=== PATIENT | male | born 1940 | race Two or more races ===

== ENCOUNTER 2016-11-18 15:10 | Emergency (ER) | payer MEDICARE, OTHER ==
[~2016-11-18] VITALS: Ht 177.8 cm; Wt 73.9 kg
[2016-11-18 15:25] VITALS: BP 146/81
--- NOTE | 2016-11-18 15:30 | PHYS DOC ---
Adult General Chief Complaint Chief Complaint: ELBOW PROBLEM HPI HPI Patient is a 75 year old male who presents with swelling. He states is her swelling yesterday. His relative tried to express out any fluid level with one of his insulin needles. He denies any fevers chills or pain elicited pushes on it. He states he can range it without any discomfort. He denies any nausea vomiting or fevers. States his last tetanus shot was within the last 5 years. He states he cut it approximately 5 days ago. Review of Systems Review of Systems Constitutional: Denies fever or chills [] Eyes: Denies change in visual acuity, redness, or eye pain [] HENT: Denies nasal congestion or sore throat [] Respiratory: Denies cough or shortness of breath [] Cardiovascular: No additional information not addressed in HPI [] GI: Denies abdominal pain, nausea, vomiting, bloody stools or diarrhea [] : Denies dysuria or hematuria [] Musculoskeletal: Denies back pain or joint pain [] Integument: Denies rash or skin lesions [] Neurologic: Denies headache, focal weakness or sensory changes [] Endocrine: Denies polyuria or polydipsia [] Current Medications Current Medications Current Medications Medications (Trade) Dose Ordered Sig/Val Start Time Stop Time Status Last Admin Dose Admin Lidocaine/Sodium Bicarbonate (Buffered Lidocaine 1%) 20 ml 1X ONCE 11/18/16 16:30 11/18/16 16:31 DC Allergies Allergies Allergies Coded Allergies Type Severity Reaction Last Updated Verified No Known Drug Allergies 11/18/16 No Physical Exam Physical Exam Constitutional: Well developed, well nourished, no acute distress, non-toxic appearance. [] HENT: Normocephalic, atraumatic, bilateral external ears normal, oropharynx moist, no oral exudates, nose normal. [] Eyes: PERRLA, EOMI, conjunctiva normal, no discharge. [] Neck: Normal range of motion, no tenderness, supple, no stridor. [] Cardiovascular:Heart rate regular rhythm, no murmur [] Lungs & Thorax: Bilateral breath sounds clear to auscultation [] Abdomen: Bowel sounds normal, soft, no tenderness, no masses, no pulsatile masses. [] Skin: Warm, dry, no erythema, no rash. [] Back: No tenderness, no CVA tenderness. [] Extremities: Mild tender palpation over the left elbow with obvious swelling at the elbow. No tenderness on range of motion, 3 mL erythematous with mild surrounding erythema, no cyanosis, no clubbing, ROM intact, no edema. Radial pulse 2+ in the left upper show any Neurologic: Alert and oriented X 3, normal motor function, normal sensory function, no focal deficits noted. [] Psychologic: Affect normal, judgement normal, mood normal. [] Current Patient Data Vital Signs Vital Signs Date Time Temp Pulse Resp B/P (MAP) Pulse Ox O2 Delivery O2 Flow Rate FiO2 11/18/16 15:25 98.3 95 18 146/81 (102) 95 Room Air 98.3 Lab Values Laboratory Tests Test 11/18/16 15:50 White Blood Count 7.8 x10^3/uL (4.0-11.0) Red Blood Count 3.96 x10^6/uL (4.30-5.70) L Hemoglobin 12.4 g/dL (13.0-17.5) L Hematocrit 36.3 % (39.0-53.0) L Mean Corpuscular Volume 92 fL (79-100) Mean Corpuscular Hemoglobin 31 pg (25-35) Mean Corpuscular Hemoglobin Concent 34 g/dL (31-37) Red Cell Distribution Width 13.0 % (11.5-14.5) Platelet Count 204 x10^3/uL (140-400) Neutrophils (%) (Auto) 70 % (31-73) Lymphocytes (%) (Auto) 19 % (24-48) L Monocytes (%) (Auto) 10 % (0-9) H Eosinophils (%) (Auto) 1 % (0-3) Basophils (%) (Auto) 0 % (0-3) Neutrophils # (Auto) 5.4 x10^3uL (1.8-7.7) Lymphocytes # (Auto) 1.5 x10^3/uL (1.0-4.8) Monocytes # (Auto) 0.8 x10^3/uL (0.0-1.1) Eosinophils # (Auto) 0.1 x10^3/uL (0.0-0.7) Basophils # (Auto) 0.0 x10^3/uL (0.0-0.2) Sodium Level 131 mmol/L (136-145) L Potassium Level 3.9 mmol/L (3.5-5.1) Chloride Level 95 mmol/L (98-107) L Carbon Dioxide Level 26 mmol/L (21-32) Anion Gap 10 (6-14) Blood Urea Nitrogen 24 mg/dL (8-26) Creatinine 0.9 mg/dL (0.7-1.3) Estimated GFR (Cockcroft-Gault) 81.8 BUN/Creatinine Ratio 27 (6-20) H Glucose Level 172 mg/dL (70-99) H Calcium Level 9.1 mg/dL (8.5-10.1) Total Bilirubin 0.5 mg/dL (0.2-1.0) Aspartate Amino Transferase (AST) 19 U/L (15-37) Alanine Aminotransferase (ALT) 29 U/L (16-63) Alkaline Phosphatase 61 U/L (46-116) C-Reactive Protein, Quantitative 11.4 mg/L (0-3.3) H Total Protein 6.9 g/dL (6.4-8.2) Albumin 3.4 g/dL (3.4-5.0) Albumin/Globulin Ratio 1.0 (1.0-1.7) Laboratory Tests 11/18/16 15:50 Laboratory Tests 11/18/16 15:50 EKG EKG [] Radiology/Procedures Radiology/Procedures [facility] [address] [place] [address] IMAGING REPORT Signed PATIENT: KRISTI ADHIKARI ACCOUNT: [id number] : 1940 LOCATION: ER AGE: 75 SEX: M EXAM STATUS: PRE ER ORD. PHYSICIAN: DANO FRYE MD REASON: swelling PROCEDURE: ELBOW LEFT 3V Indication injury 2 weeks ago. Pain and swelling. AP oblique and lateral views of left elbow were obtained. There is some soft tissue swelling. A bony abnormality is not seen. DICTATED and SIGNED BY: VANESA CONNOR MD DATE: 11/18/16 4701 CC: DANO FRYE MD; ENDER FU MD ~ Impressions: Left elbow swelling Course & Med Decision Making Course & Med Decision Making Pertinent Labs and Imaging studies reviewed. (See chart for details) 4 ML's of thin red material was expressed left elbow. I do not believe that this is infected. He does have some erythema overlying the elbow of which I will start Augmentin 875 twice a day for 7 days for. Patient's being discharged in stable condition to follow up with primary care physician. Wound cultures of the skin and cultures of the material expressed have been sent. Dragon Disclaimer Dragon Disclaimer This electronic medical record was generated, in whole or in part, using a voice recognition dictation system. Incision and Drainage Indication: Left elbow swelling Procedure: The patient was positioned appropriately. Sterile technique was used. Area was cleaned with Betadine scrub and alcohol swabs. Local anesthesia was 2 mL of buffered lidocaine was injected surrounding the left elbow. An 16- gauge needle was inserted was then made over the apex of the lesion and for ML' s of red within material was expressed. The patients tetanus status updated as needed. The patient tolerated the procedure well. Complications: none. Departure Departure Impression: Primary Impression: Bursitis Disposition: 01 HOME, SELF-CARE Condition: STABLE Referrals: ENDER FU MD (PCP) Patient Instructions: Cellulitis, [id number] Additional Instructions: You will need to be on antibiotics for the next 7 days. We sent cultures of the wound and the material we expressed out of your elbow. If you develop fevers, worsening pain or other concerns please return back to ER. You will need follow- up with your primary care physician in 3-5 days. Scripts Amoxicillin/Potassium Clav (AUGMENTIN 875-125 TABLET) 1 Each Tablet 1 TAB PO BID, #14 TAB Prov: DANO FRYE MD 11/18/16 Problem Qualifiers Primary Impression: Bursitis Bursitis location: elbow Elbow bursitis location: olecranon bursitis Laterality: left Qualified Codes: M70.22 - Olecranon bursitis, left elbow DANO FRYE MD Nov 18, 2016 15:30
[2016-11-18 16:06] LABS: BASO % 0 % (0-3); EOS % 1 % (0-3); HEMATOCRIT 36.3 % (39.0-53.0); HEMOGLOBIN 12.4 g/dL (13.0-17.5); LYMPH # 1.5 x10^3/uL (1.0-4.8); LYMPH % 19 % (24-48); MEAN CORPUSCULAR HEMOGLOBIN 31 pg (25-35); MEAN CORPUSCULAR HGB CONC 34 g/dL (31-37); MEAN CORPUSCULAR VOLUME 92 fL (79-100); MONO % 10 % (0-9); NEUT % 70 % (31-73); PLATELET COUNT 204 x10^3/uL (140-400); RED BLOOD COUNT 3.96 x10^6/uL (4.30-5.70); WHITE BLOOD COUNT 7.8 x10^3/uL (4.0-11.0)
--- NOTE | 2016-11-18 16:07 | RAD ---
Indication injury 2 weeks ago. Pain and swelling. AP oblique and lateral views of left elbow were obtained. There is some soft tissue swelling. A bony abnormality is not seen.
[2016-11-18 16:20] LABS: CALCIUM 9.1 mg/dL (8.5-10.1); CREATININE 0.9 mg/dL (0.7-1.3); GFR 81.8; POTASSIUM 3.9 mmol/L (3.5-5.1)
[2016-11-18 16:26] LABS: ALBUMIN 3.4 g/dL (3.4-5.0); TOTAL BILIRUBIN 0.5 mg/dL (0.2-1.0); TOTAL PROTEIN 6.9 g/dL (6.4-8.2)
[2016-11-18] MEDS ORDERED: LIDOCAINE 1% / SOD BICARB 8.4% 20 ML VIAL. IJ ONE (16:30)
[2016-11-18] MEDS ORDERED: AMOX1TAB61 PO (17:12)
== END 2016-11-18 17:30 | disposition home or self-care (01) ==
LOC: ER 15:10
DX: M70.22 Olecranon bursitis, left elbow (principal)
CPT/HCPCS: 36415; 73080; 80053; 85027; 85651; 86140; 87070; 87186; 87205; 99285-25

== ENCOUNTER 2016-12-26 10:33 | Inpatient (IN) | payer MEDICARE ==
[~2016-12-26] VITALS: Ht 177.8 cm; Wt 78.2 kg
[~2016-12-26 10:33] MED LIST: AMOX1TAB61 PO
--- NOTE | 2016-12-26 11:17 | EKG ---
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
[2016-12-26 11:27] LABS: BASO % 1 % (0-3); EOS % 1 % (0-3); HEMATOCRIT 38.7 % (39.0-53.0); HEMOGLOBIN 13.7 g/dL (13.0-17.5); LYMPH # 1.1 x10^3/uL (1.0-4.8); LYMPH % 14 % (24-48); MEAN CORPUSCULAR HEMOGLOBIN 32 pg (25-35); MEAN CORPUSCULAR HGB CONC 35 g/dL (31-37); MEAN CORPUSCULAR VOLUME 90 fL (79-100); MONO % 8 % (0-9); NEUT % 76 % (31-73); PLATELET COUNT 216 x10^3/uL (140-400); RED BLOOD COUNT 4.28 x10^6/uL (4.30-5.70)
[2016-12-26] MEDS ORDERED: IV NORMAL SALINE 1000ML BAG 1,000 ML IV SCH (11:30)
[2016-12-26] MEDS ORDERED: ASPIRIN CHEWABLE 81 MG TABLET. PO ONE (11:30)
[2016-12-26 11:35] LABS: CALCIUM 9.4 mg/dL (8.5-10.1); CREATININE 0.9 mg/dL (0.7-1.3); GFR 81.6; POTASSIUM 4.1 mmol/L (3.5-5.1)
[2016-12-26 11:41] LABS: ALBUMIN 3.7 g/dL (3.4-5.0); ALBUMIN/GLOBULIN RATIO 1.1 (1.0-1.7); TOTAL BILIRUBIN 0.5 mg/dL (0.2-1.0); TOTAL PROTEIN 7.1 g/dL (6.4-8.2)
--- NOTE | 2016-12-26 12:03 | RAD ---
Exam performed: One view chest. Indication: medical workup Date of Service: 12/26/2016 1:13 PM Comparison: 03/14/05. Single AP upright portable view chest findings: Cardiomediastinal silhouette is within limits of normal. No acute infiltrates, effusion or pneumothorax is detected. The bony structures are normal. Impression: No acute cardiopulmonary process is detected.
[2016-12-26] MEDS ORDERED: HEPARIN for IV BOLUS 10,000 UNIT/10 ML VIAL. IV ONE (13:30)
--- NOTE | 2016-12-26 13:46 | PDOC2 ---
CARDIAC CONSULT DATE OF CONSULT Date of Consult DATE: 12/26/16 TIME: 13:44 REASON FOR CONSULT Reason for Consult: Chest Pain Elevated troponin REFERRING PHYSICIAN Referring Physician: Dr. Sanders SOURCE Source: Chart review, Patient HISTORY OF PRESENT ILLNESS HISTORY OF PRESENT ILLNESS This is a 76 yo male who presented with complaints of chest pressure. Patient reports pain began this morning while driving. Located in his left chest. Radiated across his chest and up to his throat. Describes as stabbing in nature. Associated with diaphoresis and SOA. No dizziness, palpitations, or nausea/vomiting. No exacerbating factors. Relieved in ED with ASA. No previous h /o of CAD. Presently CP free. PAST MEDICAL HISTORY Cardiovascular: HTN, Hyperlipidemia Pulmonary: No pertinent hx GI: GERD Heme/Onc: No pertinent hx Hepatobiliary: No pertinent hx Psych: No pertinent hx Musculoskeletal: Osteoarthritis Rheumatologic: No pertinent hx Infectious disease: No pertinent hx ENT: No pertinent hx Renal/: Benign prostatic enlarg. Endocrine: Diabetes Dermatology: No pertinent hx PAST SURGICAL HISTORY Past Surgical History: Hernia Repair FAMILY HISTORY Family History: Diabetes, Hypertension SOCIAL HISTORY Smoke: No ALCOHOL: none Drugs: None Lives: with Family CURRENT MEDICATIONS CURRENT MEDICATIONS Current Medications Medications (Trade) Dose Ordered Sig/Val Route PRN Reason Start Time Stop Time Status Last Admin Dose Admin Sodium Chloride 1,000 ml @ 100 mls/hr Q10H IV 12/26/16 11:30 12/26/16 21:29 12/26/16 11:46 Aspirin (Children'S Aspirin) 324 mg 1X ONCE PO 12/26/16 11:30 12/26/16 11:31 DC 12/26/16 11:46 ALLERGIES ALLERGIES: Coded Allergies: No Known Drug Allergies (Unverified , 11/18/16) ROS Review of System 14 point ROS conducted with pertinent positives noted above in HPI. PHYSICAL EXAM General: Alert, Oriented X3, Cooperative, No acute distress HEENT: Atraumatic, Mucous membr. moist/pink Lungs: Clear to auscultation, Normal air movement Heart: Regular rate, Normal S1, Normal S2, Other (2/6 systolic murmur ) Abdomen: Soft, No tenderness Extremities: No edema, Normal pulses Skin: No breakdown, No significant lesion Neuro: Normal speech, Sensation intact Psych/Mental Status: Mental status NL, Mood NL MUSCULOSKELETAL: Osteoarthritic changes both hands VITALS VITALS Vital Signs Date Time Temp Pulse Resp B/P (MAP) Pulse Ox O2 Delivery O2 Flow Rate FiO2 12/26/16 10:48 97.5 71 16 185/88 (120) 98 Room Air 97.5 LABS Lab: Laboratory Tests Test 12/26/16 10:55 White Blood Count 8.0 x10^3/uL (4.0-11.0) Red Blood Count 4.28 x10^6/uL (4.30-5.70) Hemoglobin 13.7 g/dL (13.0-17.5) Hematocrit 38.7 % (39.0-53.0) Mean Corpuscular Volume 90 fL (79-100) Mean Corpuscular Hemoglobin 32 pg (25-35) Mean Corpuscular Hemoglobin Concent 35 g/dL (31-37) Red Cell Distribution Width 13.0 % (11.5-14.5) Platelet Count 216 x10^3/uL (140-400) Neutrophils (%) (Auto) 76 % (31-73) Lymphocytes (%) (Auto) 14 % (24-48) Monocytes (%) (Auto) 8 % (0-9) Eosinophils (%) (Auto) 1 % (0-3) Basophils (%) (Auto) 1 % (0-3) Neutrophils # (Auto) 6.1 x10^3uL (1.8-7.7) Lymphocytes # (Auto) 1.1 x10^3/uL (1.0-4.8) Monocytes # (Auto) 0.7 x10^3/uL (0.0-1.1) Eosinophils # (Auto) 0.1 x10^3/uL (0.0-0.7) Basophils # (Auto) 0.0 x10^3/uL (0.0-0.2) Sodium Level 129 mmol/L (136-145) Potassium Level 4.1 mmol/L (3.5-5.1) Chloride Level 93 mmol/L (98-107) Carbon Dioxide Level 27 mmol/L (21-32) Anion Gap 9 (6-14) Blood Urea Nitrogen 16 mg/dL (8-26) Creatinine 0.9 mg/dL (0.7-1.3) Estimated GFR (Cockcroft-Gault) 81.6 BUN/Creatinine Ratio 18 (6-20) Glucose Level 213 mg/dL (70-99) Calcium Level 9.4 mg/dL (8.5-10.1) Total Bilirubin 0.5 mg/dL (0.2-1.0) Aspartate Amino Transf (AST/SGOT) 23 U/L (15-37) Alanine Aminotransferase (ALT/SGPT) 42 U/L (16-63) Alkaline Phosphatase 58 U/L (46-116) Troponin I Quantitative 0.205 ng/mL (0.000-0.055) Total Protein 7.1 g/dL (6.4-8.2) Albumin 3.7 g/dL (3.4-5.0) Albumin/Globulin Ratio 1.1 (1.0-1.7) HEART CATH HEART CATH 1. Chest pain, with typical features 2. NSTEMI; initial trop 0.205. 3. Accelerated hypertension; resume home antiHTN therapy 4. Hyperlipidemia; resume statin 5. Systolic murmur; echo to further assess 6. Diabetes; per PCP Recommendations 1. Hold metformin 2. Trend trop. Check lipids 3. ASA, start heparin as per CV protocol 4. Echo to assess LV function/presence of WMA 5. NPO p MN. Given symptomatology, risk factors, and EKG changes, in the setting of NSTEMI, recommend cardiac cath in am. D/w patient and family and are agreeable. Will d/w primary sales manager prearranged funerals. 6. Monitor BP to assess need for therapy titration. Hydralazine IV PRN. MILAGROS WARNER APRN Dec 26, 2016 13:46
[2016-12-26] MEDS: HEPARIN 25,000UTS/500ML PREMIX 500 ML IV PRN (14:04)
[2016-12-26 15:00] VITALS: BP 174/86
[2016-12-26] MEDS ORDERED: hydrALAZINE 20 MG/ML VIAL. IVP PRN (15:30)
[2016-12-26 15:52] VITALS: BP 174/86
--- NOTE | 2016-12-26 17:21 | CARD ---
APPROVED REPORT EXAM: Two-dimensional and M-mode echocardiogram with Doppler and color Doppler. Other Information Quality : GoodHR: 74bpm Rhythm : NSR INDICATION Elevated troponin RISK FACTORS Diabetes 2D DIMENSIONS RVDd3.4 (2.9-3.5cm)Left Atrium(2D)4.4 (1.6-4.0cm) IVSd1.3 (0.7-1.1cm)Aortic Root(2D)2.9 (2.0-3.7cm) LVDd4.6 (3.9-5.9cm)LVOT Diameter2.1 (1.8-2.4cm) PWd1.5 (0.7-1.1cm)LVDs2.9 (2.5-4.0cm) FS (%) 37.4 %SV66.0 ml LVEF(%)67.5 (>50%) Aortic Valve AoV Peak Juan.106.9cm/sAoV VTI21.4cm AO Peak GR.4.6mmHgLVOT Peak Juan.93.7cm/s AO Mean GR.2mmHgAVA (VMAX)2.96cm2 Mitral Valve MV E Nazwyaqg36.1cm/sMV E Peak Gr.4mmHg MV DECEL [id number] A Prajumlh70.0cm/s MV E Mean Gr.1mmHgE/A Ratio1.0 MV A [id number] Pulmonary Valve PV Peak Jznukugx016.6cm/s Pulmonary Vein S1 Uknypiyb96.6cm/sD2 Xyulxzxq17.7cm/s PVa [id number] LEFT VENTRICLE The left ventricle is normal size. There is mild concentric left ventricular hypertrophy. The left ve ntricular systolic function is normal and the ejection fraction is within normal range. The Ejection Fraction is 60-65%. There is normal LV segmental wall motion. The left ventricular diastolic function and filling is normal for age. No left ventricle thrombus noted on this study. RIGHT VENTRICLE The right ventricle is normal size. There is normal right ventricular wall thickness. The right ventr icular systolic function is normal. ATRIA The left atrium is mildly dilated. The right atrium size is normal. The interatrial septum is intact with no evidence for an atrial septal defect or patent foramen ovale as noted on 2-D or Doppler imagi ng. AORTIC VALVE The aortic valve is mildly sclerotic.sclerotic. The aortic valve is trileaflet. Doppler and Color Sebastian w revealed no significant aortic regurgitation. There is no significant aortic valvular stenosis. MITRAL VALVE Mitral annular calcification is mild. The mitral valve leaflets are thickened. There is no evidence o f mitral valve prolapse. There is no mitral valve stenosis. Doppler and Color Flow revealed trace neeru ral regurgitation. TRICUSPID VALVE Doppler and Color Flow revealed no tricuspid valve regurgitation noted. Unable to determine pulmonary artery pressure at exam time. PULMONIC VALVE The pulmonic valve is not well visualized but appears to open adequately. Doppler and Color Flow reve aled mild pulmonic valvular regurgitation. There is no pulmonic valvular stenosis by spectral Doppler . GREAT VESSELS The aortic root is normal in size. The ascending aorta is normal in size. The pulmonary artery is nor mal. The IVC is normal in size and collapses >50% with inspiration. PERICARDIAL EFFUSION There is no evidence of significant pericardial effusion. Critical Notification Critical Value: No <Conclusion> The left ventricle is normal size. The left ventricular systolic function is normal and the ejection fraction is within normal range. The Ejection Fraction is 60-65%. There is mild concentric left ventricular hypertrophy. There is no significant aortic valvular stenosis. Doppler and Color Flow revealed no significant aortic regurgitation. Doppler and Color Flow revealed trace mitral regurgitation. Doppler and Color Flow revealed no tricuspid valve regurgitation.
[2016-12-26] MEDS ORDERED: OMEP20CA9 PO (17:48)
[2016-12-26] MEDS ORDERED: VERA180C4 PO (17:48)
[2016-12-26] MEDS ORDERED: DUTA0.5C PO (17:48)
[2016-12-26] MEDS ORDERED: MULT1TAB52 PO (17:48)
[2016-12-26] MEDS ORDERED: PRAV20TA2 PO (17:48)
[2016-12-26] MEDS ORDERED: METF-620 PO (17:48)
[2016-12-26] MEDS ORDERED: VALS1TAB22 PO (17:48)
[2016-12-26] MEDS ORDERED: MELO15TA23 PO (17:48)
[2016-12-26] MEDS ORDERED: HYDR50TA6 PO (17:48)
[2016-12-26] MEDS ORDERED: ASPI-482 PO (17:48)
[2016-12-26] MEDS ORDERED: SAW450CA2 PO (17:48)
[2016-12-26] MEDS ORDERED: TAMS0.4C2 PO (17:48)
[2016-12-26] MEDS ORDERED: GLIP10TA13 PO (17:48)
--- NOTE | 2016-12-26 18:44 | HP ---
ADMIT DATE: 12/26/2016 CHIEF COMPLAINT: Chest pain. HISTORY OF PRESENT ILLNESS: The patient is a pleasant middle-aged male who presents with chest pain. It is radiating to his arms. His troponin is a little bit high at 0.2. His EKG has some subtle ST changes. I have discussed the case with the ER physician. We are going to admit the patient and consult Cardiology. PAST MEDICAL HISTORY: Reviewed in the computerized system. Please refer to the computerized H and P. ALLERGIES: None. FAMILY HISTORY: Coronary disease. SOCIAL HISTORY: He does not drink, smoke or take drugs. . MEDICATIONS: Reviewed. REVIEW OF SYSTEMS: GENERAL: No history of weight change, weakness or fevers. SKIN: No bruising, hair changes or rashes. EYES: No blurred, double or loss of vision. NOSE AND THROAT: No history of nosebleeds, hoarseness or sore throat. HEART: He complains of chest pain. LUNGS: Denies cough, hemoptysis, wheezing or shortness of breath. GASTROINTESTINAL: Denies changes in appetite, nausea, vomiting, diarrhea or constipation. GENITOURINARY: No history of frequency, urgency, hesitancy or nocturia. NEUROLOGIC: Denies history of numbness, tingling, tremor or weakness. PSYCHIATRIC: No history of panic, anxiety or depression. ENDOCRINE: No history of heat or cold intolerance, polyuria or polydipsia. EXTREMITIES: Denies muscle weakness, joint pain, pain on walking or stiffness. PHYSICAL EXAMINATION: VITAL SIGNS: Temperature afebrile, pulse 74, respirations 18, blood pressure 127/91. GENERAL: He is alert. His is present. She is helping to translate. HEART: Distant S1 and S2. LUNGS: Clear. ABDOMEN: Soft, positive bowel sounds, a little obese. EXTREMITIES: 1+ edema. SKIN: No rashes. PSYCHIATRIC: He seems anxious. VASCULAR: Good capillary refill. ENDOCRINE: No thyromegaly. LYMPHATICS: No cervical nodes. HEMATOPOIETIC: No bruising. ASSESSMENT AND PLAN: Chest pain, rule out coronary disease. We will admit the patient to the cardiac floor. Serial enzymes, serial EKGs. Consult Cardiology. Daily aspirin. Continue home medicines. PROGNOSIS: Guarded. TIAN MONTERO DO DR: TOREY/elsie JOB#: [id number] / [id number]
[2016-12-26 19:33] VITALS: BP 162/78
[2016-12-26] MEDS: DUTASTERIDE 0.5 MG CAPSULE PO SCH (20:57)
[2016-12-26] MEDS: ATORVASTATIN CALCIUM 10 MG TABLET. PO SCH (20:57)
[2016-12-26] MEDS: VERAPAMIL SR 180 MG TABLET.ER. PO SCH (20:57)
[2016-12-26] MEDS ORDERED: NON FORMULARY ITEM (Saw Palmetto Fruit (Saw Palmetto) 450 MG) PO SCH (21:00)
[2016-12-26] MEDS: MULTIVITAMIN with MINERAL TABLET. PO SCH (21:00)
[2016-12-26] MEDS: TAMSULOSIN 0.4 MG CAP.ER.24H. PO SCH (21:00)
[2016-12-26 23:05] VITALS: BP 173/87
[2016-12-27] VITALS (14 sets, daily range): BP systolic 120–142; BP diastolic 60–77
--- NOTE | 2016-12-27 02:23 | ACF ---
Admission Forms Criteria CARDIOLOGY GRG Clinical Indications for Admission to Inpatient Care ( [place]/check or initial the applicable condition/criteria) Hospital admission is needed for appropriate care of the patient because of ANY ONE of the following: [ ] I. Hemodynamic instability as indicated by ALL of the following (1)(2)(3) (4)(5)(6)(7)(8)(9)(10) [ ]a) Vital sign abnormality not readily corrected by appropriate treatment with 12-24 hours for ANY ONE: [ ]i) Hypotension that persists despite appropriate treatment (eg, volume repletion) [ ]ii) Tachycardiathat persists despite appropriate tx ( e.g., analgesia, fluids, sedation as indicated [ ]iii) Orthostatic vital sign changes that persists despite appropriate treatment (eg, volume repletion) [ ]b) Vital sign abnormailty that is severe indicated by ANY ONE of the following: [ ]i) Inadequate perfusion indicated by ANY ONE of the following: [ ] 1) Lactic acidosis (> 2 mmol/L) [ ] 2) New abnormal capillary refill (> 3 seconds) [ ] 3) Reduced urine output [ ] 4) New altered mental status [ ] 5) Myocardial Ischemia [ ] 6) Other metabolic acidosis (arterial pH <7.35 ) not otherwise explained. [ ]ii) Mean arterial pressure[A] less than 60 mm Hg [ ]iii) Mean arterial pressure[A] less than 70 mm Hg after 30 minutes of appropriate treatment (eg, fluid resuscitation) [ ]iv) Sustained heart rate greater than 120 beats per minute in adult or child 6 years or older[B] [ ]v) IV inotropic or vasopressor medication required to maintain adequate blood pressure or perfusion [ ] II. Severe heart failure as indicated by ANY ONE of the following(17)(18) [ ]a) Respiratory distress [ ]b) Hypotension [ ]c) Debilitating anasarca refractory to therapy (eg, tissue breakdown with infection)[C](19) [ ]d) Cardiac arrhythmias of immediate concern [ ]e) Myocardial ischemia [ ] III. Cardiac arrhythmias or findings of immediate concern indicated by ANY ONE of the following (21)(22): [ ] a) Heart rhythms that are inherently dangerous or unstable indicated by ANY ONE of the following (23)(24)(25): [ ] i) Resuscitated ventricular fibrillation or cardiac arrest [ ] ii) Ventricular escape rhythm [ ] iii) Sustained ventricular tachycardia (30 seconds or more of ventricular rhythm at greater than 100 beats per minute) [ ] iv) Nonsustained ventricular tachycardia and ANY ONE of the following: [ ] 1) Suspected cardiac ischemia as cause or consequence of ventricular tachycardia [ ] 2) Acute myocarditis [ ] b) Unstable cardiac conduction defects indicated by ANY ONE of the following(25)(26)(27) [ ] i) Type II second-degree atrioventricular block [ ]ii) Third-degree atrioventricular block [ ]iii) New-onset left bundle branch block with suspected myocardial ischemia [ ]c) Any heart rhythm and ANY ONE of the following (23)(24)(28)(29) (30) [ ] i) Continuous long-term ECG monitoring needed (e.g., initiation of drug requiring monitoring for more than 24 hours) [ ] ii) Patient has automatic implanted cardioverter defibrillator that is repeatedly firing, malfunctioning, or in need of immediate adjustment of settings beyond the scope of ambulatory or observation care [ ]d) Heart rhythms of concern due to ANY ONE of the following: [ ] i) Hypotension [ ] ii) Respiratory distress [ ] iii) Association with other significant symptoms (e.g., bradycardia with syncope or ongoing dizziness, supraventricular tachycardia with chest pain (28)(29)(31) [ ] IV. Monitoring for cardiac contusion beyond the scope of observation care needed [A](32)(33)(34) [ ] V. Surgical or device complication (e.g., valve replacement complication , ICD disfunction or pacemaker dysfunction) (49)(50)(51)(52)(53)(54) [ ] . Inpatient palliative care needed. [F](51)(52) Also use Inpatient Palliative Care Criteria [ ] VII. Nonbacterial thrombotic (marantic) endocarditis(43)(44)(55)(56)(57) [X] VIII. Cardiology condition, symptom, or finding for which emergency and observation care has failed or are not considered appropriate. [ ] IX. Acute valvular disease requiring inpatient as indicated by ANY ONE of the following (40)(41) [ ]a) Acute valvular regurgitation (42) [ ]b) Noninfectious valvulitis (43)(44) [ ]c) Obstructive valve thrombosis (45)(46) [ ]d) Paravalvular leak(47)(48) [ ]e) Other significant valvular disorder remaining after emergency or observation level of care (as appropriate) [ ]X. Pericardial disease requiring inpatient treatment as indicated by ANY ONE of the following (35)(36)(37)(38) [ ]a) Suspected tamponade [ ]b) Hemopericardium [ ]c) Other significant pericardial disorder remaining after emergency or observation level of care (as appropriate)(39) [ ] XI. Cardiac ischemia beyond scope of emergency and observation care. [ ] XII. Cyanotic heart disease requiring inpatient care as indicated by 1 or more of the following(58)(59)(60): [ ]a) Acute onset of hypoxemia [ ]b) Exacerbation [ ] XIII. Hypertension requiring inpatient treatment as indicated by ANYONE of the following(11)(12)(13)(14): [ ]a) Severe hypertension (SBP greater than 180 mm Hg or DBP greater than 110 mm Hg, or greater than the 95th percentile for age, gender, and height in pediatric patients) that cannot be controlled (eg, to SBP less than 160 mm Hg and DBP less than 100 mm Hg) by emergency department or observation care treatment(15) [ ]b) Acute end organ damage secondary to hypertension (SBP greater than 140 mm Hg or DBP greater than 90 mm Hg) as indicated by ANYONE of the following: [ ] i) Hypertensive encephalopathy (eg, Altered mental status)(16) [ ] ii) Cerebral infarction [ ] iii) Intracranial hemorrhage [ ] iv) Myocardial ischemia or infarction [ ] v) Heart failure (eg, pulmonary edema) [ ] vi) Aortic dissection [ ] vii) Increased creatinine (new) with reduction of more than 50% in estimated glomerular filtration rate from baseline [ ] viii) Papilledema [ ] ix) Retinal hemorrhage [ ] x) Microangiopathic hemolytic anemia [ ] xi) Seizure [ ] xii) Other significant finding secondary to hypertension [ ] XIV. Complications of transplanted heart indicated by ANY ONE of the following(61): [ ]a) Acute graft rejection requiring inpatient management (eg, intravenous imunosuppression)(62)(63) [ ]b) Acute graft heart failure indicated by ANY ONE of the following(64): [ ] i) Hemodynamic instability [ ] ii) Cardiac arrhythmias of immediate concern [ ] iii) Pulmonary edema that is very severe (eg, mechanical ventilation needed, imminent or likely, need for 100% oxygen to keep oxygen saturation above 90%) [ ] iv) Pulmonary edema that is persistent as indicated by ALL of the following: [ ] 1) New need for oxygen therapy to keep oxygen saturation above 90 % (or increased FiO2 need from baseline) [ ] 2) Has not improved sufficiently with emergency department or observation care IV diuretics or other heart failure treatments[E]. [ ] iv) Altered mental status that is severe or persistent [ ] iv) Increased creatinine (new on laboratory test) with reduction of more than 50% in estimated glomerular filtration rate from baseline [ ] iv) Progressively (ongoing) rising creatinine (known from past laboratory test) with reduction of more than 25% in estimated glomerular filtration rate from baseline [ ] iv) Acute renal failure [ ] iv) Acute peripheral ischemia (eg, examination shows pulseless, cool, mottled, or cyanotic extremity) [ ] iv) Pulmonary artery catheter monitoring needed [ ] iv) Other sign or symptom of heart failure requiring inpatient treatment (ie, too severe or not responsive to outpatient and observation care treatment) [ ]c) Infection requiring inpatient management (eg, Hemodynamic instability, need for intravenous antimicrobial treatment)(66)(67)(68)(69)(70) [ ]d) Cardiac allograft vasculopathy requiring inpatient management (eg evidence of cardiacischemia)(71) [ ]e) Other complication of transplanted heart (eg, stroke, severe pulmonary hypertension, severe valvular dysfunction) requiring inpatient management(72) The original [facility] content created by [facility] has been revised. The portions of the content which have been revised are identified through the use of italic text, and [facility] has neither reviewed nor approved the modified material. All other unmodified content is copyright [email or web address]. Please see references footnoted in the original [facility] edition 2014 Admission Criteria Met?: Yes JORGE AMEZCUA Dec 27, 2016 02:23
[2016-12-27 02:50] LABS: CHOLESTEROL/HDL RATIO 2.3
[2016-12-27] MEDS: glipiZIDE 5 MG TABLET PO SCH ×2 (07:30→16:30)
[2016-12-27] MEDS ORDERED: hydroCHLOROthiazide 25 MG TABLET PO SCH (09:00)
[2016-12-27] MEDS ORDERED: LOSARTAN POTASSIUM 50 MG TABLET. PO SCH (09:00)
[2016-12-27] MEDS ORDERED: MELOXICAM 7.5 MG TABLET PO SCH (09:00)
[2016-12-27] MEDS: PANTOPRAZOLE 40 MG TABLET.DR. PO SCH (09:53)
[2016-12-27] MEDS: ASPIRIN ENTERIC COATED 81 MG TABLET.DR. PO SCH (09:53)
[2016-12-27] MEDS: hydroCHLOROthiazide 25 MG TABLET PO SCH (09:54)
[2016-12-27] MEDS ORDERED: IOHEXOL 300 MG/ML 100ML VIAL. ONE (11:07)
[2016-12-27] MEDS ORDERED: LIDOCAINE 2% 20 ML VIAL. ONE (11:07)
[2016-12-27] MEDS ORDERED: VERAPAMIL 5 MG/2 ML VIAL. ONE (11:28)
[2016-12-27] MEDS ORDERED: fentaNYL PF VIAL 100 MCG/2 ML VIAL ONE (11:28)
[2016-12-27] MEDS ORDERED: HEPARIN for IV BOLUS 10,000 UNIT/10 ML VIAL. ONE (11:28)
[2016-12-27] MEDS ORDERED: MIDAZOLAM HCL/PF 2 MG/2 ML VIAL. ONE (11:28)
[2016-12-27] MEDS ORDERED: NITROGLYCERIN 200 MCG/2 ML SYRINGE FOR CATH/VASC LAB. ONE (11:30)
--- NOTE | 2016-12-27 11:32 | PDOC ---
MODERATE SEDATION ASSESSMENT RISKS/ALTERNATIVES Risks/Alternatives Risks and alternatives of this type of sedation and procedure discussed with: RISK/ALTERNATIVES: Patient H & P ON CHART H & P H & P on chart and reviewed for co-morbid conditions and appropriate labs. H&P ON CHART: Yes STATUS PREG STATUS ASSESSED: N/A MEDS/ALLERGIES REVIEWED Meds/Allergies Reviewed Medications and Allergies including time and route of recently administered narcotics and sedatives. MEDS/ALLERGIES REVIEWED: Yes ASA RATING ASA RATING: III AIRWAY ASSESSMENT Airway Assessment Airway patency, oral function limitations, presence of caps, crowns, dentures, partials, and ability to extend neck assessed. AIRWAY ASSESSMENT: Yes MALLAMPATI SCORE MALLAMPATI SCORE: II PRE-SEDATION ASSESSMENT PRE-SEDATION ASSESSMENT: Yes GHADA MATA MD Dec 27, 2016 11:32
[2016-12-27] MEDS ORDERED: fentaNYL PF VIAL 100 MCG/2 ML VIAL IV ONE (12:00)
[2016-12-27] MEDS ORDERED: IOHEXOL 300 MG/ML 100ML VIAL. IART ONE (12:00)
[2016-12-27] MEDS ORDERED: NITROGLYCERIN 200 MCG/2 ML SYRINGE FOR CATH/VASC LAB. IART ONE (12:00)
[2016-12-27] MEDS ORDERED: HEPARIN for IV BOLUS 10,000 UNIT/10 ML VIAL. IART ONE (12:00)
[2016-12-27] MEDS ORDERED: LIDOCAINE 2% 20 ML VIAL. IJ ONE (12:00)
[2016-12-27] MEDS ORDERED: VERAPAMIL 5 MG/2 ML VIAL. IART ONE (12:00)
[2016-12-27] MEDS ORDERED: HEPARIN for IV BOLUS 10,000 UNIT/10 ML VIAL. IV ONE (12:00)
[2016-12-27] MEDS ORDERED: MIDAZOLAM HCL/PF 2 MG/2 ML VIAL. IV ONE (12:00)
[2016-12-27] MEDS ORDERED: CONTRAST GIVEN MC PRN (12:15)
--- NOTE | 2016-12-27 14:59 | CARD ---
APPROVED REPORT Procedure(s) performed: MODERATE SEDATION: 54 MINUTES Coronary angiography HISTORY The patient is a 76 year-old male with a history of : diabetes mellitus with treatment, hypertension, dyslipidemia. INDICATION The indication(s) include : non-STEMI Trop 12. PROCEDURE NARRATIVE The patient was brought electively to the cardiac catheterization lab. A timeout was performed confi rming the patient's name, date of , procedure, and site of procedure. All necessary personnel w ere wearing the appropriate protective equipment and radiation monitor devices. After explaining the risks and benefits of the procedure and alternatives, informed consent was obtained. (See nursing no tracee for medications administered). The right wrist was sterilely prepped and draped in the usual fas hion. The right wrist was infiltrated with 1 mL of 2% lidocaine for subcutaneous anesthesia. A 6 Fr ench Terumo glide sheath was inserted into the right radial artery without difficulty. Right and lef t coronary angiography was performed using a 6Fr JL 3.5 and JR4 catheters. CORONARY ANGIOGRAPHY: LM is a large caliber vessel with normal angiographic appearance. LAD is a moderate caliber vessel with a long mid 90% stenosis. Ramus is a small caliber vessel with proximal 50% stenosis. LCx is a moderate caliber non-dominant vessel with a mild luminal irregularities. OM1 is a moderate caliber vessel with ostial 90% stenosis and a proximal 70% stenosis. RCA is a large caliber dominant vessel with a proximal eccentric 60% stenosis. RPDA and RPL are moderate caliber vessels with normal angiographic appearance. INTERVENTIONAL TECHNIQUE: iFR of the RCA Based upon the intermediate stenosis in the proximal RCA, a functional evaluation was performed. Hepa rin weight based bolus dosing was used to achieve and maintain an ACT > 200. Through a 6Fr JR4 guide catheter, a 0.014'' Smiley Pressure wire was advanced across the proximal RCA and an iFR was measure d at 0.86 and pullback confirmed the gradient. Post iFR angiography demonstrated no evidence of guide or wire related complications. All catheter exchanges and advancements were performed over a guidewi re. At case completion the right radial sheath was removed and a Terumo radial band was applied with 14 ml of air. The patient tolerated the procedure well and there were no immediate complications. Conclusion 1. Three vessel coronary artery disaese. 2. Positive iFR of the RCA at 0.86. Recommendations CABG referral. If felt to be high risk, plan for PCI of the LAD and Lcx.
--- NOTE | 2016-12-27 15:54 | PDOC2 ---
CONSULT Date of Consult Date of Consult DATE: 12/27/16 TIME: 15:53 Reason for Consult Reason for Consult: NSTEMI Referring Physician Referring Physician: Dr Chapman Identification/Chief Complaint Chief Complaint Chest pain Problems: Source Source: Chart review, Patient History of Present Illness Reason for Visit: Mr Ellsworth is a 76-year-old male who presented to our emergency room yesterday with chest pain. He reports that he's been having chest pain on and off for the past week, and that the pain would resolve on its own. This chest pain episode did not subside and it was associated with shortness of breath and diaphoresis which brought him to the hospital. He had an elevated troponin which has now peaked at 12. He had no acute EKG changes. He denies dizziness, palpitations, or nausea/vomiting. No exacerbating factors. No previous h/o of CAD. Presently CP free. He underwent a coronary angiogram today which demonstrated a 90% proximal LAD stenosis, a tight ostial OM lesion and a proximal 60% RCA which was positive on FFR 0,86. He has a 50% proximal ramus lesion, but this is overall a small vessel. An echo has shown preserved LV function with no significant valvular disease. I was consulted to consider the patient for surgical coronary revascularization. Past Medical History Cardiovascular: HTN, Hyperlipidemia Pulmonary: No pertinent hx GI: GERD Heme/Onc: No pertinent hx Hepatobiliary: No pertinent hx Psych: No pertinent hx Musculoskeletal: Osteoarthritis Rheumatologic: No pertinent hx Infectious disease: No pertinent hx ENT: No pertinent hx Renal/: Benign prostatic enlarg. Endocrine: Diabetes Dermatology: No pertinent hx Past Surgical History Past Surgical History: Hernia Repair Family History Family History: Diabetes, Hypertension Social History No ALCOHOL: none Drugs: None Lives: with Family Current Medications Current Medications Current Medications Sodium Chloride 1,000 ml @ 100 mls/hr Q10H IV Last administered on 12/26/16 11:46; Start 12/26/16 at 11:30; Stop 12/26/16 at 21:29; Status DC Aspirin (Children'S Aspirin) 324 mg 1X ONCE PO Last administered on 12/26/16 11:46; Start 12/26/16 at 11:30; Stop 12/26/16 at 11:31; Status DC Heparin Sodium (Porcine) (Heparin Sodium) 4,000 unit 1X ONCE IV Last administered on 12/26/16 14:02; Start 12/26/16 at 13:30; Stop 12/26/16 at 13:31 ; Status DC Heparin Sodium/ Dextrose 500 ml @ 0 mls/hr CONT PRN IV SEE I/O RECORD Last administered on 12/26/16 14:04; Start 12/26/16 at 13:15 Info (Anti-Coagulation Monitoring By Pharmacy) 1 each PRN DAILY PRN MC SEE COMMENTS; Start 12/26/16 at 13:30 Hydralazine HCl (Apresoline) 10 mg PRN Q4HRS PRN IVP ELEVATED BP, SEE COMMENTS ; Start 12/26/16 at 15:30 Aspirin (Ecotrin) 81 mg DAILY PO Last administered on 12/27/16 09:53; Start at 09:00 Dutasteride (Avodart) 0.5 mg QHS PO Last administered on 12/26/16 20:57; Start 12/26/16 at 21:00 Metformin HCl (Glucophage) 1,000 mg BIDWMEALS PO ; Start 12/26/16 at 20:00; Stop 12/27/16 at 12:02; Status DC Tamsulosin HCl (Flomax) 0.8 mg QHS PO Last administered on 12/26/16 21:00; Start 12/26/16 at 21:00 Glipizide (Glucotrol) 10 mg BIDBFRMEAL PO ; Start 12/27/16 at 07:30 Hydrochlorothiazide (Hydrodiuril) 25 mg DAILY PO ; Start 12/27/16 at 09:00; Stop 12/27/16 at 12:02; Status DC Meloxicam (Mobic) 15 mg DAILY PO Last administered on 12/27/16 13:38; Start at 09:00; Stop 12/27/16 at 13:50; Status DC Multivitamins (Thera M Plus) 1 tab QHS PO Last administered on 12/26/16 21:00 ; Start 12/26/16 at 21:00 Pantoprazole Sodium (Protonix) 40 mg DAILYAC PO Last administered on 12/27/16 09:53; Start 12/27/16 at 07:30 Atorvastatin Calcium (Lipitor) 5 mg QHS PO Last administered on 12/26/16 20:57 ; Start 12/26/16 at 21:00 Non-Formulary Medication 450 mg QHS PO ; Start 12/26/16 at 21:00; Stop 12/26/16 at 21:00; Status DC Losartan Potassium (Cozaar) 100 mg DAILY PO Last administered on 12/27/16 09: 53; Start 12/27/16 at 09:00; Stop 12/27/16 at 13:50; Status DC Verapamil HCl (Calan Sr) 180 mg QHS PO Last administered on 12/26/16 20:57; Start 12/26/16 at 21:00 Hydrochlorothiazide (Hydrodiuril) 25 mg DAILY PO Last administered on 09:54; Start 12/27/16 at 09:00 Iohexol (Omnipaque 300 Mg/ml) 100 ml STK-MED ONCE .ROUTE ; Start 12/27/16 at 11: 07; Stop 12/27/16 at 11:08; Status DC Heparin Sodium/ Sodium Chloride 1,000 ml @ As Directed STK-MED ONCE .ROUTE ; Start 12/27/16 at 11:07; Stop 12/27/16 at 11:08; Status DC Lidocaine HCl 20 ml STK-MED ONCE .ROUTE ; Start 12/27/16 at 11:07; Stop at 11:08; Status DC Verapamil HCl (Verapamil) 5 mg STK-MED ONCE .ROUTE ; Start 12/27/16 at 11:28; Stop 12/27/16 at 11:29; Status DC Heparin Sodium (Porcine) (Heparin Sodium) 10,000 unit STK-MED ONCE .ROUTE ; Start 12/27/16 at 11:28; Stop 12/27/16 at 11:29; Status DC Fentanyl Citrate (Fentanyl 2ml Vial) 100 mcg STK-MED ONCE .ROUTE ; Start at 11:28; Stop 12/27/16 at 11:29; Status DC Midazolam HCl (Versed) 2 mg STK-MED ONCE .ROUTE ; Start 12/27/16 at 11:28; Stop 12/27/16 at 11:29; Status DC Nitroglycerin (Nitroglycerin) 200 mcg STK-MED ONCE .ROUTE ; Start 12/27/16 at 11 :30; Stop 12/27/16 at 11:31; Status DC Nitroglycerin (Nitroglycerin) 200 mcg 1X ONCE IART Last administered on 12:02; Start 12/27/16 at 12:00; Stop 12/27/16 at 12:01; Status DC Verapamil HCl (Verapamil) 2.5 mg 1X ONCE IART Last administered on 12/27/16 12:03; Start 12/27/16 at 12:00; Stop 12/27/16 at 12:01; Status DC Heparin Sodium (Porcine) (Heparin Sodium) 2,500 unit 1X ONCE IART Last administered on 12/27/16 12:00; Start 12/27/16 at 12:00; Stop 12/27/16 at 12:01 ; Status DC Heparin Sodium/ Sodium Chloride 1,000 unit 1X ONCE IART Last administered on 12:02; Start 12/27/16 at 12:00; Stop 12/27/16 at 12:01; Status DC Midazolam HCl (Versed) 2 mg 1X ONCE IV Last administered on 12/27/16 12:05; Start 12/27/16 at 12:00; Stop 12/27/16 at 12:01; Status DC Fentanyl Citrate (Fentanyl 2ml Vial) 100 mcg 1X ONCE IV Last administered on 12:04; Start 12/27/16 at 12:00; Stop 12/27/16 at 12:01; Status DC Iohexol (Omnipaque 300 Mg/ml) 100 ml 1X ONCE IART Last administered on 12:00; Start 12/27/16 at 12:00; Stop 12/27/16 at 12:01; Status DC Lidocaine HCl 20 ml 1X ONCE IJ Last administered on 12/27/16 12:03; Start at 12:00; Stop 12/27/16 at 12:01; Status DC Heparin Sodium (Porcine) (Heparin Sodium) 3,000 unit 1X ONCE IV Last administered on 12/27/16 12:00; Start 12/27/16 at 12:00; Stop 12/27/16 at 12:02 ; Status DC Metformin HCl (Glucophage) 1,000 mg BIDWMEALS PO ; Start 12/29/16 at 17:00; Stop 12/29/16 at 17:00; Status DC Info (Do NOT chart on this entry -- for MONITORING) 1 each PRN DAILY PRN MC SEE COMMENTS; Start 12/27/16 at 12:15; Stop 12/29/16 at 12:14 Metoprolol Tartrate (Lopressor) 25 mg 1X ONCE PO ; Start 12/29/16 at 06:00; Stop 12/29/16 at 06:01 Cefazolin Sodium 1 gm/Sodium Chloride 50 ml @ 100 mls/hr 1X ONCE IV ; Start at 06:00; Stop 12/29/16 at 06:29 Active Scripts Active Reported [place] (Saw [place] Fruit) 450 Mg Capsule 450 Mg PO QHS Tamsulosin Hcl 0.4 Mg Cap.er.24h 2 Cap PO QHS Verapamil Sr (Verapamil HCl) 180 Mg Cap24h.pel 180 Mg PO QHS Avodart (Dutasteride) 0.5 Mg Capsule 1 Cap PO QHS Multivitamins (Multivitamin) 1 Each Tablet 1 Tab PO QHS Aspir 81 (Aspirin) 81 Mg Tablet.dr 1 Tab PO DAILY Meloxicam 15 Mg Tablet 1 Tab PO DAILY Hydrochlorothiazide Tablet (Hydrochlorothiazide) 50 Mg Tablet 0.5 Tab PO DAILY Pravastatin Sodium 20 Mg Tablet 1 Tab PO DAILY Omeprazole 20 Mg Capsule.dr 1 Cap PO DAILY Glipizide 10 Mg Tablet 1 Tab PO BID Metformin Hcl 1,000 Mg Tablet 1,000 Mg PO BID Diovan Hct 320-25 Mg Tablet (Valsartan/Hydrochlorothiazide) 1 Each Tablet 1 Tab PO DAILY Allergies Allergies: Coded Allergies: No Known Drug Allergies (Unverified , 11/18/16) ROS General: No: Chills, Night Sweats, Fatigue, Malaise, Appetite PSYCHOLOGICAL ROS: No: Anxiety, Behavioral Disorder, Concentration difficultie , Decreased libido, Depression, Disorientation, Hallucinations, Hostility, Irritablity, Memory difficulties, Mood Swings, Obsessive thoughts, Physical abuse, Sexual abuse, Sleep disturbances, Suicidal ideation Eyes: No Blurry vision, No Decreased vision, No Double vision, No Dry eyes, No Excessive tearing, No Eye Pain, No Itchy Eyes, No Loss of vision, No Photophobia , No [place], No Uses contacts, No Uses glasses HEENT: No: Heacaches, Visual Changes, Hearing change, Nasal congestion, Nasal discharge, Oral lesions, Sinus pain, Sore Throat, Epistaxis, Sneezing, Snoring, Tinnitus, Vertigo, Vocal changes ALLERGY AND IMMUNOLOGY: No: Hives, Insect Bite Sensitivity, Itchy/Watery Eyes, Nasal Congestion, Post Nasal Drip, Seasonal Allergies Hematological and Lymphatic: No: Bleeding Problems, Blood Clots, Blood Transfusions, Brusing, Night Sweats, Pallor, Swollen Lymph Nodes ENDOCRINE: No: Breast Changes, Galactorrhea, Hair Pattern Changes, Hot Flashes , Malaise/lethargy, Mood Swings, Palpitations, Polydipsia/polyuria, Skin Changes , Temperature Intolerance, Unexpected Weight Changes Respiratory: No: Cough, Hemoptysis, Orthopnea, Pleuritic Pain, Shortness of breath, SOB with excertion, Sputum Changes, Stridor, Tachypnea, Wheezing Cardiovascular: No Chest Pain, No Palpitations, No Orthopnea, No Paroxysmal Noc. Dyspnea, No Edema, No Lt Headedness Gastrointestinal: No Nausea, No Vomiting, No Abdominal Pain, No Diarrhea, No Constipation, No Melena, No Hematochezia Genitourinary: No Dysuria, No Frequency, No Incontinence, No Hematuria, No Retention, No Discharge, No Urgency, No Pain, No Flank Pain Musculoskeletal: No Gait Disturbance, No Joint Pain, No Joint Stiffness, No Joint Swelling, No Muscle Pain, No Muscular Weakness, No Pain In:, No Swelling In: Neurological: No Behavorial Changes, No Bowel/Bladder ControlChng, No Confusion , No Dizziness, No Gait Disturbance, No Headaches, No Impaired Coord/balance, No Memory Loss, No Numbness/Tingling, No Seizures, No Speech Problems, No Tremors, No Visual Changes, No Weakness Skin: No Dry Skin, No Eczema, No Hair Changes, No Lumps, No Mole Changes, No Mottling, No Nail Changes, No Pruritus, No Rash, No Skin Lesion Changes, No Acne Physical Exam General: Alert, Oriented X3 HEENT: Atraumatic, PERRLA Lungs: Clear to auscultation, Normal air movement Heart: Regular rate, Normal S1, Normal S2 Abdomen: Normal bowel sounds, Soft, No tenderness Extremities: No edema, Normal pulses Skin: No significant lesion Neuro: Normal gait, Normal speech, Strength at 5/5 X4 ext, Normal tone, Sensation intact, Cranial nerves 3-12 NL Psych/Mental Status: Mental status NL MUSCULOSKELETAL: No deformity Vitals VITALS Vital Signs Date Time Temp Pulse Resp B/P (MAP) Pulse Ox O2 Delivery O2 Flow Rate FiO2 12/27/16 15:40 98 Room Air 2.0 12/27/16 12:30 98.2 60 19 135/65 (88) 98.2 Labs Labs Laboratory Tests Test 12/26/16 10:55 12/26/16 15:34 12/26/16 19:40 12/27/16 01:50 White Blood Count 8.0 x10^3/uL (4.0-11.0) Red Blood Count 4.28 x10^6/uL (4.30-5.70) Hemoglobin 13.7 g/dL (13.0-17.5) Hematocrit 38.7 % (39.0-53.0) Mean Corpuscular Volume 90 fL (79-100) Mean Corpuscular Hemoglobin 32 pg (25-35) Mean Corpuscular Hemoglobin Concent 35 g/dL (31-37) Red Cell Distribution Width 13.0 % (11.5-14.5) Platelet Count 216 x10^3/uL (140-400) Neutrophils (%) (Auto) 76 % (31-73) Lymphocytes (%) (Auto) 14 % (24-48) Monocytes (%) (Auto) 8 % (0-9) Eosinophils (%) (Auto) 1 % (0-3) Basophils (%) (Auto) 1 % (0-3) Neutrophils # (Auto) 6.1 x10^3uL (1.8-7.7) Lymphocytes # (Auto) 1.1 x10^3/uL (1.0-4.8) Monocytes # (Auto) 0.7 x10^3/uL (0.0-1.1) Eosinophils # (Auto) 0.1 x10^3/uL (0.0-0.7) Basophils # (Auto) 0.0 x10^3/uL (0.0-0.2) Sodium Level 129 mmol/L (136-145) Potassium Level 4.1 mmol/L (3.5-5.1) Chloride Level 93 mmol/L (98-107) Carbon Dioxide Level 27 mmol/L (21-32) Anion Gap 9 (6-14) Blood Urea Nitrogen 16 mg/dL (8-26) Creatinine 0.9 mg/dL (0.7-1.3) Estimated GFR (Cockcroft-Gault) 81.6 BUN/Creatinine Ratio 18 (6-20) Glucose Level 213 mg/dL (70-99) Calcium Level 9.4 mg/dL (8.5-10.1) Total Bilirubin 0.5 mg/dL (0.2-1.0) Aspartate Amino Transf (AST/SGOT) 23 U/L (15-37) Alanine Aminotransferase (ALT/SGPT) 42 U/L (16-63) Alkaline Phosphatase 58 U/L (46-116) Troponin I Quantitative 0.205 ng/mL (0.000-0.055) 6.914 ng/mL (0.000-0.055) 12.064 ng/mL (0.000-0.055) Total Protein 7.1 g/dL (6.4-8.2) Albumin 3.7 g/dL (3.4-5.0) Albumin/Globulin Ratio 1.1 (1.0-1.7) Glucose (Fingerstick) 131 mg/dL (70-99) Heparin Anti-Xa Act, Unfractionated 0.40 IU/mL (0.30-0.70) 0.25 IU/mL (0.30-0.70) Triglycerides Level 46 mg/dL (0-150) Cholesterol Level 166 mg/dL (0-200) LDL Cholesterol, Calculated 86 mg/dL (0-100) VLDL Cholesterol, Calculated 9 mg/dL (0-40) Non-HDL Cholesterol Calculated 95 mg/dL (0-129) HDL Cholesterol 71 mg/dL (40-60) Cholesterol/HDL Ratio 2.3 Test 12/27/16 07:45 12/27/16 08:50 12/27/16 10:55 Glucose (Fingerstick) 177 mg/dL (70-99) 153 mg/dL (70-99) Heparin Anti-Xa Act, Unfractionated 0.41 IU/mL (0.30-0.70) Laboratory Tests Test 12/26/16 19:40 12/27/16 01:50 12/27/16 07:45 12/27/16 08:50 Heparin Anti-Xa Act, Unfractionated 0.40 IU/mL (0.30-0.70) 0.25 IU/mL (0.30-0.70) 0.41 IU/mL (0.30-0.70) Troponin I Quantitative 6.914 ng/mL (0.000-0.055) 12.064 ng/mL (0.000-0.055) Triglycerides Level 46 mg/dL (0-150) Cholesterol Level 166 mg/dL (0-200) LDL Cholesterol, Calculated 86 mg/dL (0-100) VLDL Cholesterol, Calculated 9 mg/dL (0-40) Non-HDL Cholesterol Calculated 95 mg/dL (0-129) HDL Cholesterol 71 mg/dL (40-60) Cholesterol/HDL Ratio 2.3 Glucose (Fingerstick) 177 mg/dL (70-99) Test 12/27/16 10:55 Glucose (Fingerstick) 153 mg/dL (70-99) Images Images CORONARY ANGIOGRAPHY: LM is a large caliber vessel with normal angiographic appearance. LAD is a moderate caliber vessel with a long mid 90% stenosis. Ramus is a small caliber vessel with proximal 50% stenosis. LCx is a moderate caliber non-dominant vessel with a mild luminal irregularities. OM1 is a moderate caliber vessel with ostial 90% stenosis and a proximal 70% stenosis. RCA is a large caliber dominant vessel with a proximal eccentric 60% stenosis. RPDA and RPL are moderate caliber vessels with normal angiographic appearance. INTERVENTIONAL TECHNIQUE: iFR of the RCA Based upon the intermediate stenosis in the proximal RCA, a functional evaluation was performed. Heparin weight based bolus dosing was used to achieve and maintain an ACT > 200. Through a 6Fr JR4 guide catheter, a 0.014'' [place] Pressure wire was advanced across the proximal RCA and an iFR was measured at 0.86 and pullback confirmed the gradient. Post iFR angiography demonstrated no evidence of guide or wire related complications. All catheter exchanges and advancements were performed over a guidewire. At case completion the right radial sheath was removed and a Terumo radial band was applied with 14 ml of air. The patient tolerated the procedure well and there were no immediate complications. Assessment/Plan Assessment/Plan 76-year-old diabetic male presents with a non-STEMI. He has severe three-vessel coronary artery disease with a proximal tight long segment LAD stenosis, an ostial obtuse marginal lesion and a 60% proximal RCA which was positive on FFR at 0.86. LV function is preserved and there is no significant valvular disease. The patient is a candidate for CABG. I explained the risks, benefits and limitations of the procedure. I quoted a mortality of 1-2%, renal failure 1%, stroke 1%, perioperative MD 5%, re-sternotomy for bleeding 5-10%, chest infection 5%, sternal wound infection 1%, atrial fibrillation/arrhythmias 20%. The patient accepts these risks and agrees to proceed. Plan for CABG 3 (POTTS to LAD, SVG to distal RCA, SVG to OM) on , December 29, 2016. Will complete preoperative workup by obtainin) carotid duplex 2) non contrast CT chest 3) bilateral lower extremity vein mapping with marking 4) x-match 2 units PRBCs 5) coags and repeat BNP, in view of hyponatremia of 129. Continue to monitor troponin, until it downtrends Hold all Manuel inhibitors ASA and heparin gtt MEGAN OROZCO MD Dec 27, 2016 15:53
[2016-12-27 16:11] LABS: ALBUMIN 3.1 g/dL (3.4-5.0); ALBUMIN/GLOBULIN RATIO 0.9 (1.0-1.7); CALCIUM 8.8 mg/dL (8.5-10.1); GFR 72.3; POTASSIUM 3.7 mmol/L (3.5-5.1); TOTAL BILIRUBIN 0.7 mg/dL (0.2-1.0); TOTAL PROTEIN 6.5 g/dL (6.4-8.2)
--- NOTE | 2016-12-27 16:33 | RAD ---
APPROVED REPORT Patient Location: IN-PATIENT Laterality:Bilateral Indications pre-op cabg Doppler Spectral Velocity Analysis Right Left pCCA 107/10 cm/spCCA 65/08 cm/s mCCA 67/09 cm/smCCA 95/10 cm/s dCCA 78/11 cm/sdCCA 100/12 cm/s Bulb 71/10 cm/sBulb 82/11 cm/s ECA 186/ cm/sECA 166/ cm/s pICA 63/14 cm/spICA 57/12 cm/s Moi 70/14 cm/smICA 69/15 cm/s dICA 76/21 cm/sdICA 53/14 cm/s Vert. 38/ cm/sVert. 36/ cm/s Subcl. 121/ cm/sSubcl. 86/ cm/s ICA/CCA 0.71ICA/CCA 1.06 Findings Elise scale images of the bilateral common carotid, external carotid and internal carotid vessels reve als mild circumferential intimal hyperplasia with scattered plaque at the level of the distal common carotid artery and carotid bulbs. Spectral waveforms and color Doppler bilaterally extending from the common carotid to the distal inte rnal carotid vessels do not reveal any evidence of high-grade disease. 0 to less than 50% stenosis bi laterally and internal carotid arteries based on Doppler criteria. Bilaterally the external carotid v essels demonstrate approximately 50% stenosis with elevated velocities as noted above. The bilateral vertebral arteries are antegrade with normal spectral waveforms. Limited evaluation the bilateral subclavian arteries does not reveal any significant stenosis. Critical Notification Critical Value: No <Conclusion> 1. No evidence of high-grade internal carotid arterial disease. 2. Antegrade vertebral velocities. 3. Moderate disease in the bilateral external carotid arteries.
[2016-12-27] MEDS ORDERED: DEXTROSE 50% 25 GM / 50ML DISP.SYRIN. IV PRN (16:45)
[2016-12-27] MEDS: ANTI-COAG MONITOR BY PHARMACY. MC PRN (16:52)
--- NOTE | 2016-12-27 16:52 | PDOC ---
PROGRESS NOTES Chief Complaint Chief Complaint Chest pain SOB ASSESSMENT AND PLAN: 1. NSTEMI: s/p cath earlier today; planned CABG for triple vessel dz on . onASA, heparin gtt 2. Accelerated HTN: switch home meds to BB, hold HCTZ, cont CCB for now. Hydralazine IV PRN. 3. HLD: resume statin; lipids well controlled 4. Systolic murmur: echo to further assess 5. Diabetes: hold oral antihyperglycemics, switch to levemir and ISS History of Present Illness History of Present Illness denies (through community nutrition educator) any ongoing CP, SOB, nausea or abs c/o Vitals Vitals Vital Signs Date Time Temp Pulse Resp B/P (MAP) Pulse Ox O2 Delivery O2 Flow Rate FiO2 12/27/16 15:40 98 Room Air 2.0 12/27/16 15:15 98.4 66 19 133/70 (91) 98.4 Physical Exam General: Alert, Oriented X3, Cooperative, No acute distress Heart: Regular rate Lungs: Clear Abdomen: Normal bowel sounds, Soft, No tenderness Extremities: No edema Skin: No significant lesion Labs LABS Laboratory Tests Test 12/26/16 19:40 12/27/16 01:50 12/27/16 07:45 12/27/16 08:50 Heparin Anti-Xa Act, Unfractionated 0.40 IU/mL (0.30-0.70) 0.25 IU/mL (0.30-0.70) 0.41 IU/mL (0.30-0.70) Troponin I Quantitative 6.914 ng/mL (0.000-0.055) 12.064 ng/mL (0.000-0.055) Triglycerides Level 46 mg/dL (0-150) Cholesterol Level 166 mg/dL (0-200) LDL Cholesterol, Calculated 86 mg/dL (0-100) VLDL Cholesterol, Calculated 9 mg/dL (0-40) Non-HDL Cholesterol Calculated 95 mg/dL (0-129) HDL Cholesterol 71 mg/dL (40-60) Cholesterol/HDL Ratio 2.3 Glucose (Fingerstick) 177 mg/dL (70-99) Test 12/27/16 10:55 12/27/16 15:45 12/27/16 16:00 Glucose (Fingerstick) 153 mg/dL (70-99) 275 mg/dL (70-99) Heparin Anti-Xa Act, Unfractionated 0.40 IU/mL (0.30-0.70) Sodium Level 132 mmol/L (136-145) Potassium Level 3.7 mmol/L (3.5-5.1) Chloride Level 96 mmol/L (98-107) Carbon Dioxide Level 26 mmol/L (21-32) Anion Gap 10 (6-14) Blood Urea Nitrogen 13 mg/dL (8-26) Creatinine 1.0 mg/dL (0.7-1.3) Estimated GFR (Cockcroft-Gault) 72.3 BUN/Creatinine Ratio 13 (6-20) Glucose Level 269 mg/dL (70-99) Calcium Level 8.8 mg/dL (8.5-10.1) Total Bilirubin 0.7 mg/dL (0.2-1.0) Aspartate Amino Transf (AST/SGOT) 37 U/L (15-37) Alanine Aminotransferase (ALT/SGPT) 34 U/L (16-63) Alkaline Phosphatase 59 U/L (46-116) Troponin I Quantitative 4.105 ng/mL (0.000-0.055) Total Protein 6.5 g/dL (6.4-8.2) Albumin 3.1 g/dL (3.4-5.0) Albumin/Globulin Ratio 0.9 (1.0-1.7) CRISTHIAN BADILLO MD Dec 27, 2016 16:52
[2016-12-27] MEDS: INSULIN ASPART 300 UNITS/3 ML INSULN.PEN SQ SCH (17:41)
[2016-12-27] MEDS: HEPARIN 25,000UTS/500ML PREMIX 500 ML IV PRN (21:02)
[2016-12-27] MEDS: DUTASTERIDE 0.5 MG CAPSULE PO SCH (21:13)
[2016-12-27] MEDS: MULTIVITAMIN with MINERAL TABLET. PO SCH (21:13)
[2016-12-27] MEDS: VERAPAMIL SR 180 MG TABLET.ER. PO SCH (21:14)
[2016-12-27] MEDS: METOPROLOL TART IMMED RELEASE 25 MG TABLET. PO SCH (21:14)
[2016-12-27] MEDS: ATORVASTATIN CALCIUM 10 MG TABLET. PO SCH (21:15)
[2016-12-27] MEDS: TAMSULOSIN 0.4 MG CAP.ER.24H. PO SCH (21:15)
[2016-12-27] MEDS: INSULIN DETEMIR 300 UNITS/3 ML INSULN.PEN. SQ SCH (21:49)
[2016-12-27 23:27] LABS: BILIRUBIN,URINE NEGATIVE (NEG); GLUCOSE,URINE 250 mg/dL (NEG); NITRITE,URINE NEGATIVE (NEG); PROTEIN,URINE NEGATIVE (NEG-TRACE); UROBILINOGEN,URINE 0.2 mg/dL (0.2 mg/dL)
[2016-12-27 23:34] LABS: BACTERIA,URINE 0 /HPF (0-FEW); RBC,URINE >40 /HPF (0-2); WBC,URINE OCC /HPF (0-4)
[2016-12-27 23:35] LABS: SQUAMOUS EPITHELIAL CELL,UR OCC /LPF
[2016-12-28 03:03] VITALS: BP 114/60
[2016-12-28 06:56] LABS: BASO % 0 % (0-3); EOS % 1 % (0-3); HEMATOCRIT 37.4 % (39.0-53.0); HEMOGLOBIN 12.8 g/dL (13.0-17.5); LYMPH # 2.1 x10^3/uL (1.0-4.8); LYMPH % 28 % (24-48); MEAN CORPUSCULAR HEMOGLOBIN 32 pg (25-35); MEAN CORPUSCULAR HGB CONC 34 g/dL (31-37); MEAN CORPUSCULAR VOLUME 92 fL (79-100); MONO % 9 % (0-9); NEUT % 61 % (31-73); PLATELET COUNT 196 x10^3/uL (140-400); RED BLOOD COUNT 4.05 x10^6/uL (4.30-5.70); RED CELL DISTRIBUTION WIDTH 13.3 % (11.5-14.5); WHITE BLOOD COUNT 7.4 x10^3/uL (4.0-11.0)
[2016-12-28 07:00] VITALS: BP 137/61
[2016-12-28 07:16] LABS: INR 1.1 (0.8-1.1); PROTHROMBIN TIME PATIENT 13.7 SEC (11.7-14.0)
[2016-12-28 07:34] LABS: PARTIAL THROMBOPLASTIN TIME > 150 SEC (24-38)
[2016-12-28] MEDS: PANTOPRAZOLE 40 MG TABLET.DR. PO SCH (09:02)
[2016-12-28] MEDS: METOPROLOL TART IMMED RELEASE 25 MG TABLET. PO SCH ×2 (09:02→21:21)
[2016-12-28] MEDS: ANTI-COAG MONITOR BY PHARMACY. MC PRN (09:02)
[2016-12-28] MEDS: hydroCHLOROthiazide 25 MG TABLET PO SCH (09:03)
[2016-12-28] MEDS: ASPIRIN ENTERIC COATED 81 MG TABLET.DR. PO SCH (09:03)
[2016-12-28] MEDS: INSULIN ASPART 300 UNITS/3 ML INSULN.PEN SQ SCH ×3 (09:09→17:32)
--- NOTE | 2016-12-28 10:25 | RAD ---
Exam performed :CT scan chest without contrast. Indication: Pre-CABG Date of exam: 12/28/16. Comparison;no priors Technique: Helical sections of the chest were obtained without Intravenous contrast. Sagittal and coronal reformatted images were obtained and reviewed. Findings : The heart, hilar and mediastinal structures appear unremarkable. Lack of IV contrast limits evaluation of neck and intrathoracic great vessels , however they appear normal in course and caliber. Mild scattered atheromatous calcification of the aorta with moderate atheromatous calcification of the coronary arteries is noted. Evidence of pathologic lymphadenopathy is not identified. Occasional subcentimeter precarinal lymph node is noted. The lungs are clear. No pleural fluid or pleural thickening is identified. No pleural calcification is noted. Structures at the thoracic inlet including both lobes of the thyroid gland appear normal. As visualized, the osseous structures appear unremarkable. Limited evaluation of the upper abdominal structures is essentially unremarkable. Gallbladder is distended Impression: Mild atheromatous calcification of the aorta with moderate calcification of the coronary arteries. No definite abnormality is seen. PQRS Compliance Statement: One or more of the following individualized dose reduction techniques were utilized for this examination: 1. Automated exposure control 2. Adjustment of the mA and/or kV according to patient size 3. Use of iterative reconstruction technique
[2016-12-28 10:30] VITALS: BP 142/65
--- NOTE | 2016-12-28 12:04 | PDOC ---
CARDIO Progress Notes Date and Time Date of Service 12/28/16 Time of Evaluation 1100 Subjective Subjective: No Chest Pain, No shortness of breath Vitals Vitals Vital Signs Date Time Temp Pulse Resp B/P (MAP) Pulse Ox O2 Delivery O2 Flow Rate FiO2 12/28/16 10:30 96.6 62 18 142/65 (90) 95 Room Air 96.6 12/27/16 15:40 2.0 Weight Weight [ ] Input and Output Intake and Output Intake and Output 12/29/16 07:00 Intake Total 180 ml Balance 180 ml Intake Oral 180 ml Laboratory Labs Laboratory Tests Test 12/27/16 15:45 12/27/16 16:00 12/27/16 17:25 12/27/16 21:06 Heparin Anti-Xa Act, Unfractionated 0.40 IU/mL (0.30-0.70) Sodium Level 132 mmol/L (136-145) Potassium Level 3.7 mmol/L (3.5-5.1) Chloride Level 96 mmol/L (98-107) Carbon Dioxide Level 26 mmol/L (21-32) Anion Gap 10 (6-14) Blood Urea Nitrogen 13 mg/dL (8-26) Creatinine 1.0 mg/dL (0.7-1.3) Estimated GFR (Cockcroft-Gault) 72.3 BUN/Creatinine Ratio 13 (6-20) Glucose Level 269 mg/dL (70-99) Calcium Level 8.8 mg/dL (8.5-10.1) Total Bilirubin 0.7 mg/dL (0.2-1.0) Aspartate Amino Transf (AST/SGOT) 37 U/L (15-37) Alanine Aminotransferase (ALT/SGPT) 34 U/L (16-63) Alkaline Phosphatase 59 U/L (46-116) Troponin I Quantitative 4.105 ng/mL (0.000-0.055) Total Protein 6.5 g/dL (6.4-8.2) Albumin 3.1 g/dL (3.4-5.0) Albumin/Globulin Ratio 0.9 (1.0-1.7) Glucose (Fingerstick) 275 mg/dL (70-99) 172 mg/dL (70-99) Nasal Screen MRSA (PCR) Negative (Negative) Test 12/27/16 21:30 12/27/16 22:30 12/28/16 06:10 12/28/16 07:37 Urine Collection Type Unknown Urine Color Yellow Urine Clarity Clear Urine pH 7.0 Urine Specific [place] >=1.030 Urine Protein Negative mg/dL (NEG-TRACE) Urine Glucose (UA) 250 mg/dL (NEG) Urine Ketones (Stick) Negative mg/dL (NEG) Urine Blood Large (NEG) Urine Nitrite Negative (NEG) Urine Bilirubin Negative (NEG) Urine Urobilinogen Dipstick 0.2 mg/dL (0.2 mg/dL) Urine Leukocyte Esterase Negative (NEG) Urine RBC >40 /HPF (0-2) Urine WBC Occ /HPF (0-4) Urine Squamous Epithelial Cells Occ /LPF Urine Bacteria 0 /HPF (0-FEW) Heparin Anti-Xa Act, Unfractionated 0.85 IU/mL (0.30-0.70) 0.74 IU/mL (0.30-0.70) White Blood Count 7.4 x10^3/uL (4.0-11.0) Red Blood Count 4.05 x10^6/uL (4.30-5.70) Hemoglobin 12.8 g/dL (13.0-17.5) Hematocrit 37.4 % (39.0-53.0) Mean Corpuscular Volume 92 fL (79-100) Mean Corpuscular Hemoglobin 32 pg (25-35) Mean Corpuscular Hemoglobin Concent 34 g/dL (31-37) Red Cell Distribution Width 13.3 % (11.5-14.5) Platelet Count 196 x10^3/uL (140-400) Neutrophils (%) (Auto) 61 % (31-73) Lymphocytes (%) (Auto) 28 % (24-48) Monocytes (%) (Auto) 9 % (0-9) Eosinophils (%) (Auto) 1 % (0-3) Basophils (%) (Auto) 0 % (0-3) Neutrophils # (Auto) 4.5 x10^3uL (1.8-7.7) Lymphocytes # (Auto) 2.1 x10^3/uL (1.0-4.8) Monocytes # (Auto) 0.7 x10^3/uL (0.0-1.1) Eosinophils # (Auto) 0.1 x10^3/uL (0.0-0.7) Basophils # (Auto) 0.0 x10^3/uL (0.0-0.2) Prothrombin Time 13.7 SEC (11.7-14.0) Prothromb Time International Ratio 1.1 (0.8-1.1) Activated Partial Thromboplast Time > 150 SEC (24-38) Glucose (Fingerstick) 155 mg/dL (70-99) Test 12/28/16 11:48 Glucose (Fingerstick) 199 mg/dL (70-99) Physical Exam HEENT: Neck Supple W Full Motion Chest: Symmetric LUNGS: Clear to Auscultation Heart: S1S2, RRR Abdomen: Soft N/T Extremities: No Edema, No Calf Tenderness Neurology: alert, oriented, follow commands Assessment Assessment 1. NSTEMI; echo shows preserved LV function with an EF of 60-65% 2. 3-vessel CAD; stable. CP free. continue heparin gtt. CABG planned for . As per CTS 3. Hypertension; controlled. continue BB. ARB on hold. 4. Hyperlipidemia; stati 5. Diabetes; per PCP MILAGROS WARNER APRN Dec 28, 2016 12:04
--- NOTE | 2016-12-28 14:24 | PDOC ---
PROGRESS NOTES Chief Complaint Chief Complaint Chest pain SOB ASSESSMENT AND PLAN: 1. NSTEMI: s/p cath 12/27; planned CABG for triple vessel dz on . on ASA, heparin gtt 2. Accelerated HTN: switch home meds to BB, hold HCTZ, cont CCB for now. Hydralazine IV PRN. 3. HLD: resume statin; lipids well controlled 4. Systolic murmur: echo to further assess 5. Diabetes: hold oral antihyperglycemics, switch to levemir and ISS History of Present Illness History of Present Illness denies CP, SOB, nausea Vitals Vitals Vital Signs Date Time Temp Pulse Resp B/P (MAP) Pulse Ox O2 Delivery O2 Flow Rate FiO2 12/28/16 10:30 96.6 62 18 142/65 (90) 95 Room Air 96.6 12/27/16 15:40 2.0 Physical Exam General: Alert, Oriented X3, Cooperative, No acute distress Heart: Regular rate Lungs: Clear Abdomen: Normal bowel sounds, Soft, No tenderness Extremities: No edema Skin: No significant lesion Labs LABS Laboratory Tests Test 12/27/16 15:45 12/27/16 16:00 12/27/16 17:25 12/27/16 21:06 Heparin Anti-Xa Act, Unfractionated 0.40 IU/mL (0.30-0.70) Sodium Level 132 mmol/L (136-145) Potassium Level 3.7 mmol/L (3.5-5.1) Chloride Level 96 mmol/L (98-107) Carbon Dioxide Level 26 mmol/L (21-32) Anion Gap 10 (6-14) Blood Urea Nitrogen 13 mg/dL (8-26) Creatinine 1.0 mg/dL (0.7-1.3) Estimated GFR (Cockcroft-Gault) 72.3 BUN/Creatinine Ratio 13 (6-20) Glucose Level 269 mg/dL (70-99) Calcium Level 8.8 mg/dL (8.5-10.1) Total Bilirubin 0.7 mg/dL (0.2-1.0) Aspartate Amino Transf (AST/SGOT) 37 U/L (15-37) Alanine Aminotransferase (ALT/SGPT) 34 U/L (16-63) Alkaline Phosphatase 59 U/L (46-116) Troponin I Quantitative 4.105 ng/mL (0.000-0.055) Total Protein 6.5 g/dL (6.4-8.2) Albumin 3.1 g/dL (3.4-5.0) Albumin/Globulin Ratio 0.9 (1.0-1.7) Glucose (Fingerstick) 275 mg/dL (70-99) 172 mg/dL (70-99) Nasal Screen MRSA (PCR) Negative (Negative) Test 12/27/16 21:30 12/27/16 22:30 12/28/16 06:10 12/28/16 07:37 Urine Collection Type Unknown Urine Color Yellow Urine Clarity Clear Urine pH 7.0 Urine Specific [place] >=1.030 Urine Protein Negative mg/dL (NEG-TRACE) Urine Glucose (UA) 250 mg/dL (NEG) Urine Ketones (Stick) Negative mg/dL (NEG) Urine Blood Large (NEG) Urine Nitrite Negative (NEG) Urine Bilirubin Negative (NEG) Urine Urobilinogen Dipstick 0.2 mg/dL (0.2 mg/dL) Urine Leukocyte Esterase Negative (NEG) Urine RBC >40 /HPF (0-2) Urine WBC Occ /HPF (0-4) Urine Squamous Epithelial Cells Occ /LPF Urine Bacteria 0 /HPF (0-FEW) Heparin Anti-Xa Act, Unfractionated 0.85 IU/mL (0.30-0.70) 0.74 IU/mL (0.30-0.70) White Blood Count 7.4 x10^3/uL (4.0-11.0) Red Blood Count 4.05 x10^6/uL (4.30-5.70) Hemoglobin 12.8 g/dL (13.0-17.5) Hematocrit 37.4 % (39.0-53.0) Mean Corpuscular Volume 92 fL (79-100) Mean Corpuscular Hemoglobin 32 pg (25-35) Mean Corpuscular Hemoglobin Concent 34 g/dL (31-37) Red Cell Distribution Width 13.3 % (11.5-14.5) Platelet Count 196 x10^3/uL (140-400) Neutrophils (%) (Auto) 61 % (31-73) Lymphocytes (%) (Auto) 28 % (24-48) Monocytes (%) (Auto) 9 % (0-9) Eosinophils (%) (Auto) 1 % (0-3) Basophils (%) (Auto) 0 % (0-3) Neutrophils # (Auto) 4.5 x10^3uL (1.8-7.7) Lymphocytes # (Auto) 2.1 x10^3/uL (1.0-4.8) Monocytes # (Auto) 0.7 x10^3/uL (0.0-1.1) Eosinophils # (Auto) 0.1 x10^3/uL (0.0-0.7) Basophils # (Auto) 0.0 x10^3/uL (0.0-0.2) Prothrombin Time 13.7 SEC (11.7-14.0) Prothromb Time International Ratio 1.1 (0.8-1.1) Activated Partial Thromboplast Time > 150 SEC (24-38) Glucose (Fingerstick) 155 mg/dL (70-99) Test 12/28/16 11:48 12/28/16 13:35 Glucose (Fingerstick) 199 mg/dL (70-99) Heparin Anti-Xa Act, Unfractionated 0.59 IU/mL (0.30-0.70) CRISTHIAN BADILLO MD Dec 28, 2016 14:24
[2016-12-28 14:30] VITALS: BP 133/59
--- NOTE | 2016-12-28 15:34 | RAD ---
Exam performed: Bilateral lower maturity venous mapping. History: Pre-CABG. Date of service: 12/28/16. Comparison: None available Technique: Real-time grayscale, color-flow, duplex Doppler and spectral analysis of the superficial venous system of both lower extremities is performed and images are obtained. Findings: The evaluation of the left calf and lesser saphenous vein is very difficult. The right greater saphenous vein at the saphenofemoral junction measures 0.8 cm, in the mid thigh measures 0.51 cm in the distal thigh measures 0.47 cm. It measures 0.43 cm in the proximal calf and 0.45 cm in the distal calf. The right lesser saphenous vein in the proximal calf measures 0.45 cm and in the distal calf measures 0.22 cm The left greater saphenous vein measures 0.62 cm in the saphenofemoral junction, 0.31 cm in the mid thigh and 0.31 cm in the distal thigh. It measures 0.26 cm in the proximal calf and 0.23 cm in the distal calf. The left lesser saphenous vein is not clearly seen due to small size. Impression: See discussion above and refer to the attached worksheet
[2016-12-28 19:20] VITALS: BP 130/62
[2016-12-28] MEDS: DUTASTERIDE 0.5 MG CAPSULE PO SCH (21:19)
[2016-12-28] MEDS: VERAPAMIL SR 180 MG TABLET.ER. PO SCH (21:20)
[2016-12-28] MEDS: TAMSULOSIN 0.4 MG CAP.ER.24H. PO SCH (21:20)
[2016-12-28] MEDS: ATORVASTATIN CALCIUM 10 MG TABLET. PO SCH (21:20)
[2016-12-28] MEDS: INSULIN DETEMIR 300 UNITS/3 ML INSULN.PEN. SQ SCH (21:21)
[2016-12-28 22:04] VITALS: BP 164/77
[2016-12-29] VITALS (16 sets, daily range): BP systolic 87–159; BP diastolic 38–65
[2016-12-29] MEDS ORDERED: AMINOCAPROIC ACID 5,000 MG/20 ML VIAL. IV ONE ×3 (05:49)
[2016-12-29] MEDS ORDERED: ISOFLURANE > 120 MINUTES. IH ONE (05:50)
[2016-12-29] MEDS ORDERED: ROCURONIUM 100 MG/10 ML VIAL. ONE ×2 (05:58→10:34)
[2016-12-29] MEDS ORDERED: MIDAZOLAM HCL/PF 5 MG/5 ML VIAL. ONE (05:58)
[2016-12-29] MEDS ORDERED: SUFentanil 100 MCG/2 ML AMPUL. ONE ×2 (05:59→08:53)
[2016-12-29] MEDS ORDERED: HEPARIN for IV BOLUS 10,000 UNIT/10 ML VIAL. ONE ×3 (05:59)
[2016-12-29] MEDS ORDERED: ETOMIDATE 20 MG/10 ML VIAL. IV ONE (05:59)
[2016-12-29] MEDS ORDERED: PHENYLEPHRINE 10 MG/ML VIAL. ONE ×3 (05:59)
[2016-12-29] MEDS ORDERED: EPINEPHrine SYRINGE 1 MG/10 ML SYRINGE ONE (06:00)
[2016-12-29] MEDS ORDERED: METOPROLOL TART IMMED RELEASE 25 MG TABLET. PO ONE (06:00)
[2016-12-29] MEDS ORDERED: POTASSIUM CHLORIDE 15 MEQ, SODIUM BICARBONATE VIAL 12.5 MEQ in IV ELECTROLYTE-S (PH 7.4... IRR ONE (06:00)
[2016-12-29] MEDS ORDERED: HEPARIN 20,000 UNIT in IV RINGERS,LACTATED 1000ML 1,000 ML IRR ONE (06:00)
[2016-12-29] MEDS ORDERED: LIDOCAINE 2% PF Vial for OR 5 ML VIAL. ONE ×2 (06:00→12:51)
[2016-12-29] MEDS ORDERED: POTASSIUM CHLORIDE 70 MEQ, SODIUM BICARBONATE VIAL 12.5 MEQ, LIDOCAINE 2% 24 ML in IV E... IRR ONE (06:00)
[2016-12-29] MEDS ORDERED: PAPAVERINE 60 MG/2 ML VIAL FOR OR ONLY. ONE (06:53)
[2016-12-29] MEDS ORDERED: VANCOMYCIN 10GM VIAL for OR. ONE ×3 (06:53→06:57)
[2016-12-29] MEDS ORDERED: SURGICEL HEMOSTAT 4X8 EACH. ONE (06:53)
[2016-12-29] MEDS ORDERED: ASPIRIN 300 MG SUPP.RECT ONE (06:53)
[2016-12-29] MEDS ORDERED: 0.9 % SODIUM CHLORIDE 50 ML VIAL. IJ ONE (06:53)
[2016-12-29] MEDS ORDERED: SUCCINYLCHOLINE 200 MG/10 ML VIAL. ONE (06:55)
[2016-12-29] MEDS ORDERED: fentaNYL PF VIAL 100 MCG/2 ML VIAL IV PRN ×2 (07:00)
[2016-12-29] MEDS ORDERED: HYDROmorphone 2 MG/ML VIAL IV PRN (07:00)
[2016-12-29] MEDS ORDERED: IV RINGERS,LACTATED 1000ML 1,000 ML IV SCH (07:00)
[2016-12-29] MEDS ORDERED: PROCHLORPERAZINE 10 MG/2 ML VIAL. IV PRN (07:00)
[2016-12-29] MEDS ORDERED: LIDOCAINE 1% 1 ML SYRINGE. ID PRN (07:00)
[2016-12-29] MEDS ORDERED: MORPHINE SULFATE 2 MG/ML DISP.SYRIN. IV PRN (07:00)
[2016-12-29] MEDS ORDERED: ONDANSETRON PF 4 MG/2 ML VIAL. IV PRN ×2 (07:00→13:30)
[2016-12-29] MEDS: INSULIN ASPART 300 UNITS/3 ML INSULN.PEN SQ SCH ×3 (08:00→17:00)
[2016-12-29] MEDS ORDERED: NOREPINEPHRIN PREMIX 250 ML IV ONE (09:30)
[2016-12-29] MEDS ORDERED: INSULIN REGULAR VIAL 150 UNIT in 0.9 % SODIUM CHLORIDE 150ML 150 ML IV PRN ×2 (11:30→13:30)
[2016-12-29] MEDS ORDERED: PROTAMINE 250 MG/25 ML VIAL IV ONE (11:43)
[2016-12-29] MEDS ORDERED: PROTAMINE 50 MG/5 ML VIAL. IV ONE ×3 (11:43→12:46)
[2016-12-29] MEDS ORDERED: MANNITOL 25% 12.5 G/50 ML VIAL FOR OR. ONE (12:51)
[2016-12-29] MEDS ORDERED: HEPARIN 30,000 UNIT/30 ML VIAL. ONE (12:51)
[2016-12-29] MEDS ORDERED: CALCIUM CHLORIDE 1,000 MG/10 ML DISP.SYRIN IV ONE (12:51)
[2016-12-29] MEDS ORDERED: ALBUMIN HUMAN 25% 200 ML IV ONE (12:51)
[2016-12-29] MEDS ORDERED: MAGNESIUM SULFATE 5 GM/10 ML VIAL. ONE (12:51)
[2016-12-29] MEDS ORDERED: SODIUM BICARB ADULT 8.4% 50 MEQ/50 ML DISP.SYRIN. ONE (12:51)
--- NOTE | 2016-12-29 12:55 | PDOC ---
PROGRESS NOTES Chief Complaint Chief Complaint Chest pain SOB ASSESSMENT AND PLAN: 1. NSTEMI: s/p cath 12/27; planned CABG for triple vessel dz on . on ASA, heparin gtt 2. Accelerated HTN: switch home meds to BB, hold HCTZ, cont CCB for now. Hydralazine IV PRN. 3. HLD: resume statin; lipids well controlled 4. Systolic murmur: echo WNL, no valvular abn 5. Diabetes: hold oral antihyperglycemics, switch to levemir and ISS History of Present Illness History of Present Illness denies pain in chest or abd. no SOB Vitals Vitals Vital Signs Date Time Temp Pulse Resp B/P (MAP) Pulse Ox O2 Delivery O2 Flow Rate FiO2 12/29/16 07:26 97.4 74 18 185/60 100 Room Air 2.0 97.4 Physical Exam General: Alert, Oriented X3, Cooperative, No acute distress Heart: Regular rate Lungs: Clear Abdomen: Normal bowel sounds, Soft, No tenderness Extremities: No edema Skin: No significant lesion Labs LABS Laboratory Tests Test 12/28/16 13:35 12/28/16 16:16 12/28/16 20:25 12/28/16 21:28 Heparin Anti-Xa Act, Unfractionated 0.59 IU/mL (0.30-0.70) 0.28 IU/mL (0.30-0.70) Glucose (Fingerstick) 151 mg/dL (70-99) 205 mg/dL (70-99) Test 12/29/16 05:41 12/29/16 06:40 Glucose (Fingerstick) 175 mg/dL (70-99) Prothrombin Time 13.0 SEC (11.7-14.0) Prothromb Time International Ratio 1.0 (0.8-1.1) Activated Partial Thromboplast Time 31 SEC (24-38) CRISTHIAN BADILLO MD Dec 29, 2016 12:55
[2016-12-29] MEDS ORDERED: CLEVIDIPINE BUTYRATE 100 ML IV PRN (13:15)
[2016-12-29 13:30] LABS: HEMOGLOBIN 9.2 g/dL (13.0-17.5); WHITE BLOOD COUNT 10.8 x10^3/uL (4.0-11.0)
[2016-12-29] MEDS ORDERED: ALBUTEROL SULFATE 2.5 MG/3 ML NEBU. NEB PRN (13:30)
[2016-12-29] MEDS ORDERED: MEPERIDINE PF 25 MG/ML VIAL. IV PRN (13:30)
[2016-12-29] MEDS ORDERED: ASPIRIN 300 MG SUPP.RECT PR PRN (13:30)
[2016-12-29] MEDS ORDERED: ACETAMINOPHEN 325 MG TABLET. PO PRN (13:30)
[2016-12-29] MEDS ORDERED: KCL PER PROTOCOL MC PRN (13:30)
[2016-12-29] MEDS ORDERED: ALBUMIN HUMAN 5% 250 ML IV PRN (13:30)
[2016-12-29] MEDS ORDERED: MAGNESIUM SULFATE 1GM 100 ML IV PRN (13:30)
[2016-12-29] MEDS ORDERED: AMIODARONE 900 MG in IV DEXTROSE 5% 500 ML IV SCH ×2 (13:30→14:00)
[2016-12-29] MEDS ORDERED: PROPOFOL 100 ML IV PRN (13:30)
[2016-12-29] MEDS ORDERED: ELECTROLYTE (ICU) PROTOCOL. MC PRN (13:30)
[2016-12-29] MEDS ORDERED: BISACODYL 10 MG SUPP.RECT. PR PRN (13:30)
[2016-12-29] MEDS ORDERED: oxyCODONE/APAP 5/325 1 TAB TABLET PO PRN (13:30)
[2016-12-29] MEDS ORDERED: DEXTROSE 50% 25 GM / 50ML DISP.SYRIN. IV PRN (13:30)
[2016-12-29] MEDS ORDERED: 0.9 % SODIUM CHLORIDE 10 ML DISP.SYRIN. IV PRN (13:30)
--- NOTE | 2016-12-29 13:32 | PDOC ---
BRIEF OPERATIVE NOTE Date: Dec 29, 2016 Pre-Op Diagnosis NSTEMI Diabetes Hyperlipidemia Hypertension Post-Op Diagnosis NSTEMI Diabetes Hyperlipidemia Hypertension Pericarditis Procedure Performed CABG x 3 (POTTS to LAD, SVG to distal RCA, SVG to OM) Lysis of pericardial adhesions Left endoscopic greater saphenous vein harvest Surgeon Megan Cassidy MD [employer] Stacy [place], STEPHANIE Hood PUMPMAN Anesthesiologist Dr Sutton Anesthesia Type: General Blood Loss Cellsaver IV Fluid Crystalloid: 1600 mls Cellsaver: 250 mls 1 unit PRBC Urine Output 700 mls Specimens Obtained None Findings Good 2mm LAD, OM and distal RCA targets Obliterated pericardial space owing to dense pericardial adhesions Injury to left pulmonary artery during dissection, repaired uneventfully CPB time: 112 min x clamp time: 89 min MEGAN CASSIDY MD Dec 29, 2016 13:32
--- NOTE | 2016-12-29 13:33 | PDOC4 ---
Operative Note Operative Note Date Dec 29, 2016 Preoperative diagnosis NSTEMI Diabetes Hyperlipidemia Hypertension Postoperative diagnosis NSTEMI Diabetes Hyperlipidemia Hypertension Pericarditis Procedure CABG x 3 (POTTS to LAD, SVG to distal RCA, SVG to OM) Lysis of pericardial adhesions Left endoscopic greater saphenous vein harvest Surgeon Fiorella Gorman MD Associate Professor Of Theology Stacy Dover, STEPHANIE Hood INDUSTRIAL MANUFACTURING TECHNICIAN Anesthesiologist Dr Sutton Anesthesia Type General Blood loss Cellsaver IV fluids Crystalloid: 1600 mls Cellsaver: 250 mls 1 unit PRBC Urine output 700 mls Specimens obtained None Findings Good 2mm LAD, OM and distal RCA targets Obliterated pericardial space owing to dense pericardial adhesions Good quality and size saphenous vein and POTTS Injury to left pulmonary artery during dissection and division of adhesions, repaired uneventfully Very friable heart Additional remarks CPB time: 112 min x clamp time: 89 min Indication Mr Ellsworth is a 76-year-old male who presented to our emergency room with chest pain. He reports that he's been having chest pain on and off for the past week, but that the pain would resolve on its own. The last chest pain episode did not subside and it was associated with shortness of breath and diaphoresis which brought him to the hospital. He had an elevated troponin which peaked at 12. He had no acute EKG changes. He underwent a coronary angiogram today which demonstrated a 90% proximal LAD stenosis, a tight ostial OM lesion and a proximal 60% RCA which was positive on FFR 0,86. He has a 50% proximal ramus lesion, but this is overall a small vessel. An echo has shown preserved LV function with no significant valvular disease. A CABG was indicated. The risks, benefits and limitations of the procedure were explained to the patient who agreed to proceed. Operation After appropriate identification, the patient was brought to the operating room and placed supine on the operating table. Anesthesia was induced and the airway was secured with an endotracheal tube. A left radial arterial line, right IJ Cordis and Blakeslee-Saida catheter were placed. Antibiotics were delivered and the patient was preped in the usual standard surgical sterile fashion. A timeout was then performed. A median sternotomy was performed and the internal mammary artery was harvested, which was of good size and had excellent flow. Simultaneously the left greater saphenous vein was harvested endoscopically, which was of good quality and caliber. The pericardium was incised. The pericardial cavity was obliterated with dense pericardial adhesions. I spent the next 30 minutes carefully dividing the pericardial adhesions starting from the anterior surface of the heart, then freeing up the inferior surface and partially freeing up the right atrium in order to cannulate. The patient was heparinized. The heart was very friable. Cardiopulmonary bypass was established through the ascending aorta and the right atrium. The patient was cooled to 33. After cardiopulmonary bypass was commenced, I continued the pericardial dissection fast freeing up the rest of the right side and the posterior surface of the heart. Myocardial protection was achieved with antegrade blood cardioplegia. The cross-clamp was applied and diastolic arrest was achieved. Intermittent dosages of cardioplegia were given. There was significant bleeding from the back of the heart. With further inspection, I identified a hole in the left pulmonary artery, which was most likely caused during dissection of adhesions, on the posterior-lateral aspect of the aorta, in order to apply the crossclamp. This was repaired with 4-0 Prolene. Grafts: Saphenous vein graft to distal right coronary artery, end to side anastomosis with 7-0 Prolene. 2 mm vessel. Saphenous vein graft to obtuse marginal coronary artery, end to side anastomosis with 7-0 Prolene. 2 mm vessel. Left internal mammary artery to mid left anterior descending, end to side anastomosis with 7-0 Prolene. 2 mm vessel Two proximal anastomoses were performed using a 6-0 Prolene running suture. The cross-clamp was removed. The heart was allowed to rewarm and reperfuse. The grafts was de-aired. The patient spontaneously converted to normal sinus rhythm and was from cardiopulmonary bypass without pharmacologic support. Heparin was reversed with protamine. Atrial and ventricular pacing wires were placed. The root vent cannulation site continued to bleed and had to be repaired with additional pledgetted 2-0 ethibond sutures. An angled 32 [place]ian chest tube was placed in the left pleural space, a 32Fr angled in the posterior pericardium and a 32 straight in the anterior pericardium. Hemostasis was achieved and confirmed. The sternotomy was closed with seven #7 steel wires. The incision was closed with a layer of 0 Vicryl followed by 2-0 Vicryl and then 4-0 Monocryl for the epidermis. Sterile dressings were applied. The total cardiopulmonary bypass time was 112 minutes and the cross-clamp time was 89 minutes. The instrument, sponge and needle counts were correct. The patient was then transferred to the ICU in critical condition. FIORELLA GORMAN MD Dec 29, 2016 13:33
[2016-12-29 13:42] LABS: INR 1.7 (0.8-1.1); PROTHROMBIN TIME PATIENT 19.2 SEC (11.7-14.0)
[2016-12-29 13:52] LABS: ART BE ISTAT -2 mmol/L (0-3); ART GLUC ISTAT 228 mg/dL (70-99); ART HCO3 ISTAT 23 mmol/L (21-28); ART HCT ISTAT 23 % (37-52); ART HGB ISTAT 7.8 g/dL (14-18); ART ION CA ISTAT 1.05 mmol/L (1.13-1.32); ART K ISTAT 4.4 mmol/L (3.5-5.0); ART NA ISTAT 127 mmol/L (135-145); ART PCO2 ISTAT 37 mmHg (35-45); ART PO2 ISTAT 245 mmHg (75-100); ART SAT O2 SAT 100 % (95-99); ART TCO2 ISTAT 24 mmol/L (21-32); TOSPEC ART
[2016-12-29 13:52] LABS: ART BE ISTAT -1 mmol/L (0-3); ART GLUC ISTAT 216 mg/dL (70-99); ART HCO3 ISTAT 24 mmol/L (21-28); ART HCT ISTAT 25 % (37-52); ART HGB ISTAT 8.5 g/dL (14-18); ART ION CA ISTAT 1.08 mmol/L (1.13-1.32); ART K ISTAT 4.5 mmol/L (3.5-5.0); ART NA ISTAT 128 mmol/L (135-145); ART PCO2 ISTAT 36 mmHg (35-45); ART PH ISTAT 7.43 (7.35-7.45); ART PO2 ISTAT 243 mmHg (75-100); ART SAT O2 SAT 100 % (95-99); ART TCO2 ISTAT 25 mmol/L (21-32); TOSPEC ART
[2016-12-29 13:52] LABS: ART BE ISTAT 3 mmol/L (0-3); ART GLUC ISTAT 189 mg/dL (70-99); ART HCO3 ISTAT 27 mmol/L (21-28); ART HCT ISTAT 36 % (37-52); ART HGB ISTAT 12.2 g/dL (14-18); ART ION CA ISTAT 1.21 mmol/L (1.13-1.32); ART K ISTAT 3.9 mmol/L (3.5-5.0); ART NA ISTAT 130 mmol/L (135-145); ART PCO2 ISTAT 37 mmHg (35-45); ART PH ISTAT 7.47 (7.35-7.45); ART PO2 ISTAT 418 mmHg (75-100); ART SAT O2 SAT 100 % (95-99); ART TCO2 ISTAT 28 mmol/L (21-32); TOSPEC ART
[2016-12-29 13:52] LABS: ART BE ISTAT 0 mmol/L (0-3); ART GLUC ISTAT 215 mg/dL (70-99); ART HCO3 ISTAT 25 mmol/L (21-28); ART HCT ISTAT 20 % (37-52); ART HGB ISTAT 6.8 g/dL (14-18); ART ION CA ISTAT 1.94 mmol/L (1.13-1.32); ART K ISTAT 4.1 mmol/L (3.5-5.0); ART NA ISTAT 127 mmol/L (135-145); ART PCO2 ISTAT 42 mmHg (35-45); ART PH ISTAT 7.39 (7.35-7.45); ART PO2 ISTAT 250 mmHg (75-100); ART SAT O2 SAT 100 % (95-99); ART TCO2 ISTAT 27 mmol/L (21-32); TOSPEC ART
[2016-12-29 13:52] LABS: ART BE ISTAT 0 mmol/L (0-3); ART GLUC ISTAT 186 mg/dL (70-99); ART HCO3 ISTAT 24 mmol/L (21-28); ART HCT ISTAT 26 % (37-52); ART HGB ISTAT 8.8 g/dL (14-18); ART K ISTAT 5.1 mmol/L (3.5-5.0); ART NA ISTAT 128 mmol/L (135-145); ART PCO2 ISTAT 35 mmHg (35-45); ART PH ISTAT 7.44 (7.35-7.45); ART PO2 ISTAT 303 mmHg (75-100); ART SAT O2 SAT 100 % (95-99); ART TCO2 ISTAT 25 mmol/L (21-32); TOSPEC ART
[2016-12-29 13:52] LABS: ART BE ISTAT 1 mmol/L (0-3); ART GLUC ISTAT 199 mg/dL (70-99); ART HCO3 ISTAT 26 mmol/L (21-28); ART HCT ISTAT 32 % (37-52); ART HGB ISTAT 10.9 g/dL (14-18); ART ION CA ISTAT 1.17 mmol/L (1.13-1.32); ART K ISTAT 4.1 mmol/L (3.5-5.0); ART NA ISTAT 128 mmol/L (135-145); ART PCO2 ISTAT 38 mmHg (35-45); ART PH ISTAT 7.43 (7.35-7.45); ART PO2 ISTAT 460 mmHg (75-100); ART SAT O2 SAT 100 % (95-99); ART TCO2 ISTAT 27 mmol/L (21-32); TOSPEC ART
[2016-12-29 13:53] LABS: ART BE ISTAT 1 mmol/L (0-3); ART GLUC ISTAT 189 mg/dL (70-99); ART HCO3 ISTAT 25 mmol/L (21-28); ART HCT ISTAT 26 % (37-52); ART HGB ISTAT 8.8 g/dL (14-18); ART ION CA ISTAT 1.47 mmol/L (1.13-1.32); ART K ISTAT 3.6 mmol/L (3.5-5.0); ART NA ISTAT 131 mmol/L (135-145); ART PCO2 ISTAT 37 mmHg (35-45); ART PH ISTAT 7.44 (7.35-7.45); ART PO2 ISTAT 388 mmHg (75-100); ART SAT O2 SAT 100 % (95-99); ART TCO2 ISTAT 26 mmol/L (21-32); TOSPEC ART
[2016-12-29 13:53] LABS: ART BE ISTAT 0 mmol/L (0-3); ART GLUC ISTAT 216 mg/dL (70-99); ART HCO3 ISTAT 25 mmol/L (21-28); ART HCT ISTAT 20 % (37-52); ART HGB ISTAT 6.8 g/dL (14-18); ART K ISTAT 3.6 mmol/L (3.5-5.0); ART NA ISTAT 129 mmol/L (135-145); ART PCO2 ISTAT 39 mmHg (35-45); ART PH ISTAT 7.42 (7.35-7.45); ART PO2 ISTAT 350 mmHg (75-100); ART SAT O2 SAT 100 % (95-99); ART TCO2 ISTAT 26 mmol/L (21-32); TOSPEC ART
--- NOTE | 2016-12-29 14:00 | RAD ---
Portable AP radiograph of the distal left femur 12/29/2016 Clinical history: Incorrect needle count. Portable AP digital radiograph of the mid/distal left femur to include the proximal left tibia and fibula was obtained. Surgical clips overlie the medial soft tissues of the distal left thigh. Subcutaneous edema is seen in this area consistent with saphenous vein harvesting. No needle or surgical instrument is noted. Impression: No retained needle or surgical instrument is seen on this radiograph.
--- NOTE | 2016-12-29 14:05 | RAD ---
AP portable chest radiograph 12/29/2016 Clinical History: Incorrect needle count. An AP portable supine digital radiograph of the chest was obtained. Comparison study is dated 12/26/2016. The patient is status post CABG procedure. An ET tube overlies the trachea at the level of clavicles. A NG tube is seen extending to overlie the antrum of the stomach. A right internal jugular [place]-Saida catheter has been placed. It is slightly coiled and overlies the main pulmonary artery. No surgical instrument or needle is seen on this radiograph. The cardiac silhouette is normal in size. The thoracic aorta is tortuous. There is a small left pleural effusion. No acute pulmonary infiltrate is seen. No pneumothorax is noted. The osseous structures are grossly intact. Impression: No retained surgical instrument or needle is seen on this radiograph.
[2016-12-29] MEDS ORDERED: AMIODARONE 150 MG in IV DEXTROSE 5% 100 ML IV SCH (14:30)
--- NOTE | 2016-12-29 14:31 | EKG ---
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
[2016-12-29 14:44] LABS: HEMATOCRIT 27.7 % (39.0-53.0); HEMOGLOBIN 9.8 g/dL (13.0-17.5); RED BLOOD COUNT 3.07 x10^6/uL (4.30-5.70); RED CELL DISTRIBUTION WIDTH 13.4 % (11.5-14.5); WHITE BLOOD COUNT 11.3 x10^3/uL (4.0-11.0)
[2016-12-29 14:52] LABS: INR 1.5 (0.8-1.1); PROTHROMBIN TIME PATIENT 17.1 SEC (11.7-14.0)
[2016-12-29 15:03] LABS: CALCIUM 9.7 mg/dL (8.5-10.1); GFR 72.3; MAGNESIUM 2.1 mg/dL (1.8-2.4); POTASSIUM 3.5 mmol/L (3.5-5.1)
[2016-12-29] MEDS: MORPHINE SULFATE 2 MG/ML DISP.SYRIN. IV PRN (15:18)
[2016-12-29] MEDS ORDERED: POTASSIUM CHLORIDE 20MEQ 50 ML IV SCH (15:30)
[2016-12-29] MEDS ORDERED: MAGNESIUM SULFATE 1GM 100 ML IV ONE (15:30)
[2016-12-29] MEDS: IV RINGERS,LACTATED 1000ML 1,000 ML IV SCH (16:23)
[2016-12-29 19:42] LABS: HEMATOCRIT 26.2 % (39.0-53.0); HEMOGLOBIN 9.1 g/dL (13.0-17.5); RED BLOOD COUNT 2.86 x10^6/uL (4.30-5.70); RED CELL DISTRIBUTION WIDTH 13.3 % (11.5-14.5); WHITE BLOOD COUNT 12.7 x10^3/uL (4.0-11.0)
[2016-12-29 19:53] LABS: MAGNESIUM 2.2 mg/dL (1.8-2.4); POTASSIUM 4.1 mmol/L (3.5-5.1)
[2016-12-29 20:40] LABS: HCO3 ABG 22 mmol/L (21-28); PCO2 ABG 36 mmHg (35-46); PH ABG 7.41 (7.35-7.45); PO2 ABG 134 mmHg (65-108); SAT O2 ABG 98 % (92-99)
[2016-12-29] MEDS ORDERED: POTASSIUM CHLORIDE 20MEQ 50 ML IV ONE (20:45)
[2016-12-29 20:47] LABS: FIO2 ABG 40
[2016-12-29] MEDS: INSULIN DETEMIR 300 UNITS/3 ML INSULN.PEN. SQ SCH (20:48)
[2016-12-29] MEDS: TAMSULOSIN 0.4 MG CAP.ER.24H. PO SCH (21:00)
[2016-12-29] MEDS: DUTASTERIDE 0.5 MG CAPSULE PO SCH (21:00)
[2016-12-29] MEDS: ATORVASTATIN CALCIUM 20 MG TABLET PO SCH (21:00)
[2016-12-29] MEDS: VERAPAMIL SR 180 MG TABLET.ER. PO SCH (21:00)
[2016-12-29] MEDS: FAMOTIDINE 20 MG/2 ML VIAL IVP SCH (21:15)
[2016-12-29] MEDS: oxyCODONE/APAP 5/325 1 TAB TABLET PO PRN (22:21)
[2016-12-30] VITALS (21 sets, daily range): BP systolic 115–158; BP diastolic 45–72
[2016-12-30] MEDS ORDERED: FUROSEMIDE 40 MG/4 ML VIAL. IVP ONE (02:00)
[2016-12-30] MEDS: oxyCODONE/APAP 5/325 1 TAB TABLET PO PRN ×3 (02:39→17:27)
[2016-12-30 05:38] LABS: HEMATOCRIT 27.7 % (39.0-53.0); HEMOGLOBIN 9.5 g/dL (13.0-17.5); RED BLOOD COUNT 3.02 x10^6/uL (4.30-5.70); RED CELL DISTRIBUTION WIDTH 13.6 % (11.5-14.5); WHITE BLOOD COUNT 12.3 x10^3/uL (4.0-11.0)
[2016-12-30 05:54] LABS: CALCIUM 9.3 mg/dL (8.5-10.1); CREATININE 0.8 mg/dL (0.7-1.3); GFR 93.5; MAGNESIUM 1.7 mg/dL (1.8-2.4); POTASSIUM 3.5 mmol/L (3.5-5.1)
--- NOTE | 2016-12-30 06:08 | EKG ---
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
[2016-12-30] MEDS: INSULIN ASPART 300 UNITS/3 ML INSULN.PEN SQ SCH ×3 (08:00→18:30)
--- NOTE | 2016-12-30 08:38 | RAD ---
AP portable chest radiograph 12/30/2016 Clinical History: Post CABG procedure. An AP portable erect digital radiograph of the chest was obtained. Comparison study is dated 12/29/2016. The patient is status post CABG procedure. The ET tube and NG tube have been removed. The left-sided chest tubes and mediastinal drain are unchanged. The right internal jugular [place]-Saida catheter has been removed. The right internal jugular venous introducer sheath is unchanged. The cardiac silhouette is mildly enlarged. The thoracic aorta is tortuous. Atherosclerotic calcification of the thoracic aorta is seen. There is a small left pleural effusion. Left lower lobe atelectasis and/or infiltrate is seen. These findings have not significantly changed. Right basilar subsegmental atelectasis is noted. No pneumothorax is seen. The osseous structures are unchanged. Impression: 1. ET and NG tubes and right internal jugular Enc[place]-Saida catheter have been removed. 2. Small left pleural effusion with left lower lobe atelectasis and/or infiltrate essentially unchanged.
[2016-12-30] MEDS: POTASSIUM CHLORIDE 20MEQ 50 ML IV SCH ×3 (09:01→12:21)
[2016-12-30] MEDS: ASPIRIN ENTERIC COATED 325 MG TABLET.DR. PO SCH (09:02)
[2016-12-30] MEDS: SENNOSIDES/DOCUSATE 8.6/50MG TABLET. PO SCH ×2 (09:02→21:15)
[2016-12-30] MEDS: METOPROLOL TART IMMED RELEASE 25 MG TABLET. PO SCH ×2 (09:06→21:13)
[2016-12-30] MEDS: FAMOTIDINE 20 MG/2 ML VIAL IVP SCH ×2 (09:06→21:13)
--- NOTE | 2016-12-30 09:55 | PDOC ---
PROGRESS NOTES Chief Complaint Chief Complaint Chest pain SOB ASSESSMENT AND PLAN: 1. NSTEMI: s/p cath 12/27; CABG for triple vessel dz on 12/29. recovering well. walked w/PT this AM. on BB, ASA, prophylactic amiodarone 2. Pain control: adequate. 3. Accelerated HTN: well controlledcont CCB. Hydralazine IV PRN. 4. HLD:on statin; lipids well controlled. 5. Diabetes: hold oral antihyperglycemics, switched to levemir and ISS. monitor with fluctuating PO intake 6. Anemia: acute bleed and chronic inflammation. s/p PRBC x1 w/ CABG. appears stable. 7. Leukocytosis: reactive 2/2 surgery, stable borderline high. monitor for signs of infection 8. Thrombocytopenia: 2/2 surgery, not unexpected. sl improved, in safe range >100K. monitor History of Present Illness History of Present Illness feels fine. pain well controlled. no N/V, SOB Vitals Vitals Vital Signs Date Time Temp Pulse Resp B/P (MAP) Pulse Ox O2 Delivery O2 Flow Rate FiO2 12/30/16 09:06 89 126/56 12/30/16 06:33 20 100 Nasal Cannula 2.0 12/30/16 05:00 98.7 98.7 Physical Exam General: Alert, Oriented X3, Cooperative, No acute distress Heart: Regular rate Lungs: Clear Abdomen: Normal bowel sounds, Soft, No tenderness Extremities: No edema Skin: No significant lesion Labs LABS Laboratory Tests Test 12/29/16 09:43 12/29/16 10:41 12/29/16 10:44 12/29/16 11:12 Activated Clotting Time 555 SEC (90-125) 543 SEC (90-125) Bedside Hemoglobin (Calculated) 8.8 g/dL (14-18) 8.5 g/dL (14-18) Bedside Hematocrit 26 % (37-52) 25 % (37-52) Bedside Arterial pH 7.44 (7.35-7.45) 7.43 (7.35-7.45) Bedside Arterial pCO2 35 mmHg (35-45) 36 mmHg (35-45) Bedside Arterial pO2 303 mmHg (75-100) 243 mmHg (75-100) Bedside Arterial HCO3 24 mmol/L (21-28) 24 mmol/L (21-28) Bedside Arterial Total CO2 25 mmol/L (21-32) 25 mmol/L (21-32) Arterial Bld O2 Saturation (Measur) 100 % (95-99) 100 % (95-99) Bedside Arterial Blood Base Excess 0 mmol/L (0-3) -1 mmol/L (0-3) Bedside FiO2 70.0 60.0 Bedside Sodium 128 mmol/L (135-145) 128 mmol/L (135-145) Bedside Potassium 5.1 mmol/L (3.5-5.0) 4.5 mmol/L (3.5-5.0) Glucose Level 186 mg/dL (70-99) 216 mg/dL (70-99) Bedside Ionized Calcium (Jackelyn) 1.00 mmol/L (1.13-1.32) 1.08 mmol/L (1.13-1.32) Test 12/29/16 11:14 12/29/16 11:42 12/29/16 11:45 12/29/16 12:13 Activated Clotting Time 577 SEC (90-125) 496 SEC (90-125) Bedside Hemoglobin (Calculated) 7.8 g/dL (14-18) 6.8 g/dL (14-18) Bedside Hematocrit 23 % (37-52) 20 % (37-52) Bedside Arterial pH 7.40 (7.35-7.45) 7.39 (7.35-7.45) Bedside Arterial pCO2 37 mmHg (35-45) 42 mmHg (35-45) Bedside Arterial pO2 245 mmHg (75-100) 250 mmHg (75-100) Bedside Arterial HCO3 23 mmol/L (21-28) 25 mmol/L (21-28) Bedside Arterial Total CO2 24 mmol/L (21-32) 27 mmol/L (21-32) Arterial Bld O2 Saturation (Measur) 100 % (95-99) 100 % (95-99) Bedside Arterial Blood Base Excess -2 mmol/L (0-3) 0 mmol/L (0-3) Bedside FiO2 65.0 70.0 Bedside Sodium 127 mmol/L (135-145) 127 mmol/L (135-145) Bedside Potassium 4.4 mmol/L (3.5-5.0) 4.1 mmol/L (3.5-5.0) Glucose Level 228 mg/dL (70-99) 215 mg/dL (70-99) Bedside Ionized Calcium (Jackelyn) 1.05 mmol/L (1.13-1.32) 1.94 mmol/L (1.13-1.32) Test 12/29/16 12:16 12/29/16 12:39 12/29/16 12:42 12/29/16 13:14 Activated Clotting Time 661 SEC (90-125) 140 SEC (90-125) 200 SEC (90-125) Bedside Hemoglobin (Calculated) 6.8 g/dL (14-18) Bedside Hematocrit 20 % (37-52) Bedside Arterial pH 7.42 (7.35-7.45) Bedside Arterial pCO2 39 mmHg (35-45) Bedside Arterial pO2 350 mmHg (75-100) Bedside Arterial HCO3 25 mmol/L (21-28) Bedside Arterial Total CO2 26 mmol/L (21-32) Arterial Bld O2 Saturation (Measur) 100 % (95-99) Bedside Arterial Blood Base Excess 0 mmol/L (0-3) Bedside FiO2 100.0 Bedside Sodium 129 mmol/L (135-145) Bedside Potassium 3.6 mmol/L (3.5-5.0) Glucose Level 216 mg/dL (70-99) Bedside Ionized Calcium (Jackelyn) 1.60 mmol/L (1.13-1.32) Test 12/29/16 13:19 12/29/16 13:22 12/29/16 13:29 12/29/16 14:30 Bedside Hemoglobin (Calculated) 8.8 g/dL (14-18) Bedside Hematocrit 26 % (37-52) Bedside Arterial pH 7.44 (7.35-7.45) Bedside Arterial pCO2 37 mmHg (35-45) Bedside Arterial pO2 388 mmHg (75-100) Bedside Arterial HCO3 25 mmol/L (21-28) Bedside Arterial Total CO2 26 mmol/L (21-32) Arterial Bld O2 Saturation (Measur) 100 % (95-99) Bedside Arterial Blood Base Excess 1 mmol/L (0-3) Bedside FiO2 100.0 Bedside Sodium 131 mmol/L (135-145) Bedside Potassium 3.6 mmol/L (3.5-5.0) Glucose Level 189 mg/dL (70-99) 144 mg/dL (70-99) Bedside Ionized Calcium (Jackelyn) 1.47 mmol/L (1.13-1.32) Activated Clotting Time 130 SEC (90-125) White Blood Count 10.8 x10^3/uL (4.0-11.0) 11.3 x10^3/uL (4.0-11.0) Hemoglobin 9.2 g/dL (13.0-17.5) 9.8 g/dL (13.0-17.5) Hematocrit 26.0 % (39.0-53.0) 27.7 % (39.0-53.0) Platelet Count 85 x10^3/uL (140-400) 104 x10^3/uL (140-400) Prothrombin Time 19.2 SEC (11.7-14.0) 17.1 SEC (11.7-14.0) Prothromb Time International Ratio 1.7 (0.8-1.1) 1.5 (0.8-1.1) Activated Partial Thromboplast Time 34 SEC (24-38) 36 SEC (24-38) Fibrinogen 258 mg/dL (200-440) Red Blood Count 3.07 x10^6/uL (4.30-5.70) Mean Corpuscular Volume 90 fL (79-100) Mean Corpuscular Hemoglobin 32 pg (25-35) Mean Corpuscular Hemoglobin Concent 36 g/dL (31-37) Red Cell Distribution Width 13.4 % (11.5-14.5) Sodium Level 133 mmol/L (136-145) Potassium Level 3.5 mmol/L (3.5-5.1) Chloride Level 100 mmol/L (98-107) Carbon Dioxide Level 23 mmol/L (21-32) Anion Gap 10 (6-14) Blood Urea Nitrogen 14 mg/dL (8-26) Creatinine 1.0 mg/dL (0.7-1.3) Estimated GFR (Cockcroft-Gault) 72.3 Calcium Level 9.7 mg/dL (8.5-10.1) Magnesium Level 2.1 mg/dL (1.8-2.4) Test 12/29/16 14:34 12/29/16 15:51 12/29/16 17:03 12/29/16 18:15 Glucose (Fingerstick) 158 mg/dL (70-99) 131 mg/dL (70-99) 158 mg/dL (70-99) 176 mg/dL (70-99) Test 12/29/16 19:12 12/29/16 19:25 12/29/16 20:04 12/29/16 20:31 Glucose (Fingerstick) 178 mg/dL (70-99) 150 mg/dL (70-99) White Blood Count 12.7 x10^3/uL (4.0-11.0) Red Blood Count 2.86 x10^6/uL (4.30-5.70) Hemoglobin 9.1 g/dL (13.0-17.5) Hematocrit 26.2 % (39.0-53.0) Mean Corpuscular Volume 92 fL (79-100) Mean Corpuscular Hemoglobin 32 pg (25-35) Mean Corpuscular Hemoglobin Concent 35 g/dL (31-37) Red Cell Distribution Width 13.3 % (11.5-14.5) Platelet Count 99 x10^3/uL (140-400) Potassium Level 4.1 mmol/L (3.5-5.1) Magnesium Level 2.2 mg/dL (1.8-2.4) O2 Saturation 98 % (92-99) Arterial Blood pH 7.41 (7.35-7.45) Arterial Blood pCO2 at Patient Temp 36 mmHg (35-46) Arterial Blood pO2 at Patient Temp 134 mmHg (65-108) Arterial Blood HCO3 22 mmol/L (21-28) Arterial Blood Base Excess -2 mmol/L (-3-3) FiO2 40 Test 12/29/16 21:30 12/29/16 22:27 12/29/16 23:33 12/30/16 00:35 Glucose (Fingerstick) 162 mg/dL (70-99) 149 mg/dL (70-99) 155 mg/dL (70-99) 158 mg/dL (70-99) Test 12/30/16 01:36 12/30/16 02:35 12/30/16 04:30 12/30/16 05:30 Glucose (Fingerstick) 137 mg/dL (70-99) 143 mg/dL (70-99) 121 mg/dL (70-99) 123 mg/dL (70-99) White Blood Count 12.3 x10^3/uL (4.0-11.0) Red Blood Count 3.02 x10^6/uL (4.30-5.70) Hemoglobin 9.5 g/dL (13.0-17.5) Hematocrit 27.7 % (39.0-53.0) Mean Corpuscular Volume 92 fL (79-100) Mean Corpuscular Hemoglobin 32 pg (25-35) Mean Corpuscular Hemoglobin Concent 35 g/dL (31-37) Red Cell Distribution Width 13.6 % (11.5-14.5) Platelet Count 115 x10^3/uL (140-400) Sodium Level 134 mmol/L (136-145) Potassium Level 3.5 mmol/L (3.5-5.1) Chloride Level 100 mmol/L (98-107) Carbon Dioxide Level 25 mmol/L (21-32) Anion Gap 9 (6-14) Blood Urea Nitrogen 13 mg/dL (8-26) Creatinine 0.8 mg/dL (0.7-1.3) Estimated GFR (Cockcroft-Gault) 93.5 Glucose Level 124 mg/dL (70-99) Calcium Level 9.3 mg/dL (8.5-10.1) Magnesium Level 1.7 mg/dL (1.8-2.4) Test 12/30/16 06:33 12/30/16 08:21 12/30/16 09:25 Glucose (Fingerstick) 132 mg/dL (70-99) 135 mg/dL (70-99) 236 mg/dL (70-99) CRISTHIAN BADILLO MD Dec 30, 2016 09:55
--- NOTE | 2016-12-30 10:54 | PDOC ---
CARDIO Progress Notes Date and Time Date of Service 12/30/16 Time of Evaluation 1015 Subjective Subjective: No shortness of breath, Other (fatigued. mild sternal discomfort ) Vitals Vitals Vital Signs Date Time Temp Pulse Resp B/P (MAP) Pulse Ox O2 Delivery O2 Flow Rate FiO2 12/30/16 09:06 89 126/56 12/30/16 08:00 Nasal Cannula 2.0 12/30/16 06:33 20 100 12/30/16 05:00 98.7 98.7 Weight Weight [ ] Input and Output Intake and Output Intake and Output 12/31/16 07:00 Intake Total 750 ml Output Total 285 ml Balance 465 ml Intake Oral 750 ml Output Urine Total 225 ml Chest Tube Drainage Total 60 ml Laboratory Labs Laboratory Tests Test 12/29/16 11:12 12/29/16 11:14 12/29/16 11:42 12/29/16 11:45 Bedside Hemoglobin (Calculated) 8.5 g/dL (14-18) 7.8 g/dL (14-18) Bedside Hematocrit 25 % (37-52) 23 % (37-52) Bedside Arterial pH 7.43 (7.35-7.45) 7.40 (7.35-7.45) Bedside Arterial pCO2 36 mmHg (35-45) 37 mmHg (35-45) Bedside Arterial pO2 243 mmHg (75-100) 245 mmHg (75-100) Bedside Arterial HCO3 24 mmol/L (21-28) 23 mmol/L (21-28) Bedside Arterial Total CO2 25 mmol/L (21-32) 24 mmol/L (21-32) Arterial Bld O2 Saturation (Measur) 100 % (95-99) 100 % (95-99) Bedside Arterial Blood Base Excess -1 mmol/L (0-3) -2 mmol/L (0-3) Bedside FiO2 60.0 65.0 Bedside Sodium 128 mmol/L (135-145) 127 mmol/L (135-145) Bedside Potassium 4.5 mmol/L (3.5-5.0) 4.4 mmol/L (3.5-5.0) Glucose Level 216 mg/dL (70-99) 228 mg/dL (70-99) Bedside Ionized Calcium (Jackelyn) 1.08 mmol/L (1.13-1.32) 1.05 mmol/L (1.13-1.32) Activated Clotting Time 577 SEC (90-125) 496 SEC (90-125) Test 12/29/16 12:13 12/29/16 12:16 12/29/16 12:39 12/29/16 12:42 Bedside Hemoglobin (Calculated) 6.8 g/dL (14-18) 6.8 g/dL (14-18) Bedside Hematocrit 20 % (37-52) 20 % (37-52) Bedside Arterial pH 7.39 (7.35-7.45) 7.42 (7.35-7.45) Bedside Arterial pCO2 42 mmHg (35-45) 39 mmHg (35-45) Bedside Arterial pO2 250 mmHg (75-100) 350 mmHg (75-100) Bedside Arterial HCO3 25 mmol/L (21-28) 25 mmol/L (21-28) Bedside Arterial Total CO2 27 mmol/L (21-32) 26 mmol/L (21-32) Arterial Bld O2 Saturation (Measur) 100 % (95-99) 100 % (95-99) Bedside Arterial Blood Base Excess 0 mmol/L (0-3) 0 mmol/L (0-3) Bedside FiO2 70.0 100.0 Bedside Sodium 127 mmol/L (135-145) 129 mmol/L (135-145) Bedside Potassium 4.1 mmol/L (3.5-5.0) 3.6 mmol/L (3.5-5.0) Glucose Level 215 mg/dL (70-99) 216 mg/dL (70-99) Bedside Ionized Calcium (Jackelyn) 1.94 mmol/L (1.13-1.32) 1.60 mmol/L (1.13-1.32) Activated Clotting Time 661 SEC (90-125) 140 SEC (90-125) Test 12/29/16 13:14 12/29/16 13:19 12/29/16 13:22 12/29/16 13:29 Activated Clotting Time 200 SEC (90-125) 130 SEC (90-125) Bedside Hemoglobin (Calculated) 8.8 g/dL (14-18) Bedside Hematocrit 26 % (37-52) Bedside Arterial pH 7.44 (7.35-7.45) Bedside Arterial pCO2 37 mmHg (35-45) Bedside Arterial pO2 388 mmHg (75-100) Bedside Arterial HCO3 25 mmol/L (21-28) Bedside Arterial Total CO2 26 mmol/L (21-32) Arterial Bld O2 Saturation (Measur) 100 % (95-99) Bedside Arterial Blood Base Excess 1 mmol/L (0-3) Bedside FiO2 100.0 Bedside Sodium 131 mmol/L (135-145) Bedside Potassium 3.6 mmol/L (3.5-5.0) Glucose Level 189 mg/dL (70-99) Bedside Ionized Calcium (Jackelyn) 1.47 mmol/L (1.13-1.32) White Blood Count 10.8 x10^3/uL (4.0-11.0) Hemoglobin 9.2 g/dL (13.0-17.5) Hematocrit 26.0 % (39.0-53.0) Platelet Count 85 x10^3/uL (140-400) Prothrombin Time 19.2 SEC (11.7-14.0) Prothromb Time International Ratio 1.7 (0.8-1.1) Activated Partial Thromboplast Time 34 SEC (24-38) Fibrinogen 258 mg/dL (200-440) Test 12/29/16 14:30 12/29/16 14:34 12/29/16 15:51 12/29/16 17:03 White Blood Count 11.3 x10^3/uL (4.0-11.0) Red Blood Count 3.07 x10^6/uL (4.30-5.70) Hemoglobin 9.8 g/dL (13.0-17.5) Hematocrit 27.7 % (39.0-53.0) Mean Corpuscular Volume 90 fL (79-100) Mean Corpuscular Hemoglobin 32 pg (25-35) Mean Corpuscular Hemoglobin Concent 36 g/dL (31-37) Red Cell Distribution Width 13.4 % (11.5-14.5) Platelet Count 104 x10^3/uL (140-400) Prothrombin Time 17.1 SEC (11.7-14.0) Prothromb Time International Ratio 1.5 (0.8-1.1) Activated Partial Thromboplast Time 36 SEC (24-38) Sodium Level 133 mmol/L (136-145) Potassium Level 3.5 mmol/L (3.5-5.1) Chloride Level 100 mmol/L (98-107) Carbon Dioxide Level 23 mmol/L (21-32) Anion Gap 10 (6-14) Blood Urea Nitrogen 14 mg/dL (8-26) Creatinine 1.0 mg/dL (0.7-1.3) Estimated GFR (Cockcroft-Gault) 72.3 Glucose Level 144 mg/dL (70-99) Calcium Level 9.7 mg/dL (8.5-10.1) Magnesium Level 2.1 mg/dL (1.8-2.4) Glucose (Fingerstick) 158 mg/dL (70-99) 131 mg/dL (70-99) 158 mg/dL (70-99) Test 12/29/16 18:15 12/29/16 19:12 12/29/16 19:25 12/29/16 20:04 Glucose (Fingerstick) 176 mg/dL (70-99) 178 mg/dL (70-99) White Blood Count 12.7 x10^3/uL (4.0-11.0) Red Blood Count 2.86 x10^6/uL (4.30-5.70) Hemoglobin 9.1 g/dL (13.0-17.5) Hematocrit 26.2 % (39.0-53.0) Mean Corpuscular Volume 92 fL (79-100) Mean Corpuscular Hemoglobin 32 pg (25-35) Mean Corpuscular Hemoglobin Concent 35 g/dL (31-37) Red Cell Distribution Width 13.3 % (11.5-14.5) Platelet Count 99 x10^3/uL (140-400) Potassium Level 4.1 mmol/L (3.5-5.1) Magnesium Level 2.2 mg/dL (1.8-2.4) O2 Saturation 98 % (92-99) Arterial Blood pH 7.41 (7.35-7.45) Arterial Blood pCO2 at Patient Temp 36 mmHg (35-46) Arterial Blood pO2 at Patient Temp 134 mmHg (65-108) Arterial Blood HCO3 22 mmol/L (21-28) Arterial Blood Base Excess -2 mmol/L (-3-3) FiO2 40 Test 12/29/16 20:31 12/29/16 21:30 12/29/16 22:27 12/29/16 23:33 Glucose (Fingerstick) 150 mg/dL (70-99) 162 mg/dL (70-99) 149 mg/dL (70-99) 155 mg/dL (70-99) Test 12/30/16 00:35 12/30/16 01:36 12/30/16 02:35 12/30/16 04:30 Glucose (Fingerstick) 158 mg/dL (70-99) 137 mg/dL (70-99) 143 mg/dL (70-99) 121 mg/dL (70-99) Test 12/30/16 05:30 12/30/16 06:33 12/30/16 08:21 12/30/16 09:25 White Blood Count 12.3 x10^3/uL (4.0-11.0) Red Blood Count 3.02 x10^6/uL (4.30-5.70) Hemoglobin 9.5 g/dL (13.0-17.5) Hematocrit 27.7 % (39.0-53.0) Mean Corpuscular Volume 92 fL (79-100) Mean Corpuscular Hemoglobin 32 pg (25-35) Mean Corpuscular Hemoglobin Concent 35 g/dL (31-37) Red Cell Distribution Width 13.6 % (11.5-14.5) Platelet Count 115 x10^3/uL (140-400) Sodium Level 134 mmol/L (136-145) Potassium Level 3.5 mmol/L (3.5-5.1) Chloride Level 100 mmol/L (98-107) Carbon Dioxide Level 25 mmol/L (21-32) Anion Gap 9 (6-14) Blood Urea Nitrogen 13 mg/dL (8-26) Creatinine 0.8 mg/dL (0.7-1.3) Estimated GFR (Cockcroft-Gault) 93.5 Glucose Level 124 mg/dL (70-99) Glucose (Fingerstick) 123 mg/dL (70-99) 132 mg/dL (70-99) 135 mg/dL (70-99) 236 mg/dL (70-99) Calcium Level 9.3 mg/dL (8.5-10.1) Magnesium Level 1.7 mg/dL (1.8-2.4) Test 12/30/16 10:29 Glucose (Fingerstick) 201 mg/dL (70-99) Physical Exam HEENT: Neck Supple W Full Motion Chest: Symmetric, Other (sternal DRSG intact ) LUNGS: Clear to Auscultation, Other (left pleural tube intact) Heart: S1S2, RRR, other (pacer wires intact) Abdomen: Soft N/T Extremities: No Edema, No Calf Tenderness, Other (CONCEPCION to LLE. Trace pedal edema ) Neurology: alert, oriented, follow commands Assessment Assessment 1. NSTEMI; echo with preserved LV function with an EF of 60-65% 2. 3-vessel CAD; s/p CABG x 3 with POTTS to LAD, SVG to distal RCA, and SVG to OM. POD #1. Doing very well post-operatively. Up ambulating this morning. Maintaining SR; Amio for prophylaxis. Encourage IS. Continue post-op management per CTS. 3. Hypertension; controlled. continue BB. ARB on hold. 4. Hyperlipidemia; statin 5. Diabetes MILAGROS WARNER APRN Dec 30, 2016 10:54
[2016-12-30] MEDS: IV RINGERS,LACTATED 1000ML 1,000 ML IV SCH (13:20)
--- NOTE | 2016-12-30 13:34 | PDOC ---
Progress Note Subjective Subjective Fast track extubation yesterday. Doing very well. Normotensive and in SR. On 2 lit NC. Minimal drainage from tubes. Hb:9,5 Creat:0,8. Has already walked around the unit. ROS ROS No nausea No SOB No vomiting No pain No rash Vital Sign Vital Signs Vital Signs Date Time Temp Pulse Resp B/P (MAP) Pulse Ox O2 Delivery O2 Flow Rate FiO2 12/30/16 10:00 86 150/69 (96) Nasal Cannula 12/30/16 09:00 99 12/30/16 08:00 2.0 12/30/16 08:00 22 12/30/16 07:00 97.5 97.5 Physical Exam PHYSICAL EXAM GENERAL: NAD, Alert HEENT: PERRL, OC/OP NECK: Supple, no JVD, no LN LUNGS: Clear HEART: S1S2, no gallop, no murmur ABD: Soft, NT, no organomegaly, no rebound EXT: No edema, no cyanosis PHYSICIST ACOUSTICS: Alert, oriented x 3, no focal neurologic deficit SKIN: No rash IV: ok Labs Lab Laboratory Tests Test 12/29/16 14:30 12/29/16 14:34 12/29/16 15:51 12/29/16 17:03 White Blood Count 11.3 x10^3/uL (4.0-11.0) Red Blood Count 3.07 x10^6/uL (4.30-5.70) Hemoglobin 9.8 g/dL (13.0-17.5) Hematocrit 27.7 % (39.0-53.0) Mean Corpuscular Volume 90 fL (79-100) Mean Corpuscular Hemoglobin 32 pg (25-35) Mean Corpuscular Hemoglobin Concent 36 g/dL (31-37) Red Cell Distribution Width 13.4 % (11.5-14.5) Platelet Count 104 x10^3/uL (140-400) Prothrombin Time 17.1 SEC (11.7-14.0) Prothromb Time International Ratio 1.5 (0.8-1.1) Activated Partial Thromboplast Time 36 SEC (24-38) Sodium Level 133 mmol/L (136-145) Potassium Level 3.5 mmol/L (3.5-5.1) Chloride Level 100 mmol/L (98-107) Carbon Dioxide Level 23 mmol/L (21-32) Anion Gap 10 (6-14) Blood Urea Nitrogen 14 mg/dL (8-26) Creatinine 1.0 mg/dL (0.7-1.3) Estimated GFR (Cockcroft-Gault) 72.3 Glucose Level 144 mg/dL (70-99) Calcium Level 9.7 mg/dL (8.5-10.1) Magnesium Level 2.1 mg/dL (1.8-2.4) Glucose (Fingerstick) 158 mg/dL (70-99) 131 mg/dL (70-99) 158 mg/dL (70-99) Test 12/29/16 18:15 12/29/16 19:12 12/29/16 19:25 12/29/16 20:04 Glucose (Fingerstick) 176 mg/dL (70-99) 178 mg/dL (70-99) White Blood Count 12.7 x10^3/uL (4.0-11.0) Red Blood Count 2.86 x10^6/uL (4.30-5.70) Hemoglobin 9.1 g/dL (13.0-17.5) Hematocrit 26.2 % (39.0-53.0) Mean Corpuscular Volume 92 fL (79-100) Mean Corpuscular Hemoglobin 32 pg (25-35) Mean Corpuscular Hemoglobin Concent 35 g/dL (31-37) Red Cell Distribution Width 13.3 % (11.5-14.5) Platelet Count 99 x10^3/uL (140-400) Potassium Level 4.1 mmol/L (3.5-5.1) Magnesium Level 2.2 mg/dL (1.8-2.4) O2 Saturation 98 % (92-99) Arterial Blood pH 7.41 (7.35-7.45) Arterial Blood pCO2 at Patient Temp 36 mmHg (35-46) Arterial Blood pO2 at Patient Temp 134 mmHg (65-108) Arterial Blood HCO3 22 mmol/L (21-28) Arterial Blood Base Excess -2 mmol/L (-3-3) FiO2 40 Test 12/29/16 20:31 12/29/16 21:30 12/29/16 22:27 12/29/16 23:33 Glucose (Fingerstick) 150 mg/dL (70-99) 162 mg/dL (70-99) 149 mg/dL (70-99) 155 mg/dL (70-99) Test 12/30/16 00:35 12/30/16 01:36 12/30/16 02:35 12/30/16 04:30 Glucose (Fingerstick) 158 mg/dL (70-99) 137 mg/dL (70-99) 143 mg/dL (70-99) 121 mg/dL (70-99) Test 12/30/16 05:30 12/30/16 06:33 12/30/16 08:21 12/30/16 09:25 White Blood Count 12.3 x10^3/uL (4.0-11.0) Red Blood Count 3.02 x10^6/uL (4.30-5.70) Hemoglobin 9.5 g/dL (13.0-17.5) Hematocrit 27.7 % (39.0-53.0) Mean Corpuscular Volume 92 fL (79-100) Mean Corpuscular Hemoglobin 32 pg (25-35) Mean Corpuscular Hemoglobin Concent 35 g/dL (31-37) Red Cell Distribution Width 13.6 % (11.5-14.5) Platelet Count 115 x10^3/uL (140-400) Sodium Level 134 mmol/L (136-145) Potassium Level 3.5 mmol/L (3.5-5.1) Chloride Level 100 mmol/L (98-107) Carbon Dioxide Level 25 mmol/L (21-32) Anion Gap 9 (6-14) Blood Urea Nitrogen 13 mg/dL (8-26) Creatinine 0.8 mg/dL (0.7-1.3) Estimated GFR (Cockcroft-Gault) 93.5 Glucose Level 124 mg/dL (70-99) Glucose (Fingerstick) 123 mg/dL (70-99) 132 mg/dL (70-99) 135 mg/dL (70-99) 236 mg/dL (70-99) Calcium Level 9.3 mg/dL (8.5-10.1) Magnesium Level 1.7 mg/dL (1.8-2.4) Test 12/30/16 10:29 12/30/16 12:07 Glucose (Fingerstick) 201 mg/dL (70-99) 211 mg/dL (70-99) Objective Assessment POD#1, 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 Fast track extubation yesterday. Doing very well. Normotensive and in SR. On 2 lit NC. Minimal drainage from tubes. Hb:9,5 Creat:0,8. Has already walked around the unit. Plan Plan of Care D/c [place] D/c a-line D/c mediastinal drains Oral amiodarone for AFib prophylaxis ASA, b-ilya, statin Can give one dose of Lasix 20mg iv, if UO drops PT/OT consult, continue ambulation, I/S MEGAN CASSIDY MD Dec 30, 2016 13:34
[2016-12-30] MEDS: AMIODARONE HCL 200 MG TABLET. PO SCH ×2 (14:57→21:12)
[2016-12-30] MEDS: MORPHINE SULFATE 2 MG/ML DISP.SYRIN. IV PRN (14:59)
[2016-12-30] MEDS: POLYETHYLENE GLYCOL 3350 17 GM PACKET. PO SCH (21:00)
[2016-12-30] MEDS: DUTASTERIDE 0.5 MG CAPSULE PO SCH (21:12)
[2016-12-30] MEDS: ATORVASTATIN CALCIUM 20 MG TABLET PO SCH (21:12)
[2016-12-30] MEDS: TAMSULOSIN 0.4 MG CAP.ER.24H. PO SCH (21:13)
[2016-12-30] MEDS: INSULIN DETEMIR 300 UNITS/3 ML INSULN.PEN. SQ SCH (21:38)
[2016-12-31] VITALS (13 sets, daily range): BP systolic 104–175; BP diastolic 51–86
[2016-12-31 06:29] LABS: BASO % 0 % (0-3); EOS % 0 % (0-3); HEMATOCRIT 28.7 % (39.0-53.0); LYMPH # 0.9 x10^3/uL (1.0-4.8); LYMPH % 8 % (24-48); MEAN CORPUSCULAR HEMOGLOBIN 32 pg (25-35); MEAN CORPUSCULAR HGB CONC 35 g/dL (31-37); MEAN CORPUSCULAR VOLUME 92 fL (79-100); MONO % 8 % (0-9); NEUT % 84 % (31-73); PLATELET COUNT 108 x10^3/uL (140-400); RED BLOOD COUNT 3.11 x10^6/uL (4.30-5.70); RED CELL DISTRIBUTION WIDTH 13.4 % (11.5-14.5); WHITE BLOOD COUNT 11.4 x10^3/uL (4.0-11.0)
[2016-12-31 06:48] LABS: ALBUMIN 3.1 g/dL (3.4-5.0); CALCIUM 9.1 mg/dL (8.5-10.1); CREATININE 0.7 mg/dL (0.7-1.3); GFR 109.1; POTASSIUM 4.2 mmol/L (3.5-5.1); TOTAL BILIRUBIN 0.7 mg/dL (0.2-1.0); TOTAL PROTEIN 6.2 g/dL (6.4-8.2)
[2016-12-31] MEDS ORDERED: POTASSIUM CHLORIDE 20MEQ 50 ML IV ONE (08:00)
[2016-12-31] MEDS: ASPIRIN ENTERIC COATED 325 MG TABLET.DR. PO SCH (08:22)
[2016-12-31] MEDS: SENNOSIDES/DOCUSATE 8.6/50MG TABLET. PO SCH ×2 (08:23→22:00)
[2016-12-31] MEDS: METOPROLOL TART IMMED RELEASE 25 MG TABLET. PO SCH ×2 (08:23→21:23)
[2016-12-31] MEDS: AMIODARONE HCL 200 MG TABLET. PO SCH ×2 (08:23→21:00)
[2016-12-31] MEDS: INSULIN ASPART 300 UNITS/3 ML INSULN.PEN SQ SCH ×3 (08:25→17:11)
[2016-12-31] MEDS: FAMOTIDINE 20 MG TABLET. PO SCH ×2 (08:26→21:00)
[2016-12-31] MEDS ORDERED: MAGNESIUM SULFATE 1GM 100 ML IV ONE (08:30)
--- NOTE | 2016-12-31 09:45 | RAD ---
Examination: Single frontal view chest History: History of postop respiratory distress Comparison: 12/30/2016 Findings: Low lung volumes and technique accentuates heart size and pulmonary vascularity. Right-sided internal jugular line sheath is unchanged. Mild left lung base airspace opacity likely atelectasis or small pleural effusion grossly similar to prior exam. Left lung base chest tube is identified. Interval removal of mediastinal drains. Impression: 1. Mild left lung base airspace opacity likely atelectasis or small pleural effusion grossly similar to prior exam. A left-sided lung base chest tube is unchanged.
[2016-12-31] MEDS: oxyCODONE/APAP 5/325 1 TAB TABLET PO PRN ×2 (10:15→17:09)
--- NOTE | 2016-12-31 10:43 | PDOC ---
PROGRESS NOTES Subjective Subjective s/p CABG POD#2, progressing well Objective Objective Vital Signs Date Time Temp Pulse Resp B/P (MAP) Pulse Ox O2 Delivery O2 Flow Rate FiO2 12/31/16 10:15 20 98 Room Air 12/31/16 08:23 100 118/58 12/31/16 08:00 98.0 98.0 12/31/16 06:00 2.0 Intake and Output 01/01/17 06:59 Output Total 175 ml Balance -175 ml Output Urine Total 175 ml Physical Exam Abdomen: Normal bowel sounds, Soft, No tenderness Heart: Regular rate Extremities: No edema General: Alert, Oriented X3, Cooperative, No acute distress HEENT: Atraumatic, PERRLA Lungs: Clear to auscultation, Normal air movement MUSCULOSKELETAL: No deformity Neuro: Normal speech Psych/Mental Status: Mental status NL Skin: No significant lesion Assessment Assessment 1. Acute non-STEMI, 3-vessel CAD; s/p CABG x 3 with POTTS to LAD, SVG to distal RCA, and SVG to OM. POD #2. Doing very well post-operatively. Maintaining SR; Continue post-op management per CTS. continue PT/OT 2. Hypertension; controlled. continue BB. ARB on hold. 3. Hyperlipidemia; statin 4. Diabetes - per IM Comment Review of Relevant I have reviewed the following items [place] (where applicable) has been applied. Labs Laboratory Tests Test 12/30/16 12:07 12/30/16 17:47 12/30/16 21:17 12/31/16 06:15 Glucose (Fingerstick) 211 mg/dL (70-99) 247 mg/dL (70-99) 227 mg/dL (70-99) White Blood Count 11.4 x10^3/uL (4.0-11.0) Red Blood Count 3.11 x10^6/uL (4.30-5.70) Hemoglobin 10.0 g/dL (13.0-17.5) Hematocrit 28.7 % (39.0-53.0) Mean Corpuscular Volume 92 fL (79-100) Mean Corpuscular Hemoglobin 32 pg (25-35) Mean Corpuscular Hemoglobin Concent 35 g/dL (31-37) Red Cell Distribution Width 13.4 % (11.5-14.5) Platelet Count 108 x10^3/uL (140-400) Neutrophils (%) (Auto) 84 % (31-73) Lymphocytes (%) (Auto) 8 % (24-48) Monocytes (%) (Auto) 8 % (0-9) Eosinophils (%) (Auto) 0 % (0-3) Basophils (%) (Auto) 0 % (0-3) Neutrophils # (Auto) 9.6 x10^3uL (1.8-7.7) Lymphocytes # (Auto) 0.9 x10^3/uL (1.0-4.8) Monocytes # (Auto) 0.9 x10^3/uL (0.0-1.1) Eosinophils # (Auto) 0.0 x10^3/uL (0.0-0.7) Basophils # (Auto) 0.0 x10^3/uL (0.0-0.2) Sodium Level 131 mmol/L (136-145) Potassium Level 4.2 mmol/L (3.5-5.1) Chloride Level 98 mmol/L (98-107) Carbon Dioxide Level 26 mmol/L (21-32) Anion Gap 7 (6-14) Blood Urea Nitrogen 17 mg/dL (8-26) Creatinine 0.7 mg/dL (0.7-1.3) Estimated GFR (Cockcroft-Gault) 109.1 BUN/Creatinine Ratio 24 (6-20) Glucose Level 236 mg/dL (70-99) Calcium Level 9.1 mg/dL (8.5-10.1) Magnesium Level 1.7 mg/dL (1.8-2.4) Total Bilirubin 0.7 mg/dL (0.2-1.0) Aspartate Amino Transf (AST/SGOT) 45 U/L (15-37) Alanine Aminotransferase (ALT/SGPT) 41 U/L (16-63) Alkaline Phosphatase 49 U/L (46-116) Total Protein 6.2 g/dL (6.4-8.2) Albumin 3.1 g/dL (3.4-5.0) Albumin/Globulin Ratio 1.0 (1.0-1.7) Medications Current Medications Amiodarone HCl (Cordarone) 400 mg BID PO Last administered on 12/31/16t 08:23; Start 12/30/16 at 13:00 Famotidine (Pepcid) 20 mg BID PO Last administered on 12/31/16 08:26; Start 12/31/16 at 09:00 Magnesium Sulfate/ Dextrose 100 ml @ 100 mls/hr 1X ONCE IV Last administered on 12/31/16 10:17; Start 12/31/16 at 08:30; Stop 12/31/16 at 09:29; Status DC Polyethylene Glycol (miraLAX PACKET) 17 gm HS PO ; Start 12/30/16 at 21:00 Potassium Chloride 50 ml @ 50 mls/hr 1X ONCE IV Last administered on 12/31/16 08:23; Start 12/31/16 at 08:00; Stop 12/31/16 at 08:59; Status DC Vitals/I & O Vital Sign - Last 24 Hours 12/30/16 12/30/16 12/30/16 12/30/16 11:00 12:00 12:00 13:00 Temp 97.5 97.5 B/P (MAP) 126/61 (82) 128/59 (82) 126/59 (81) Pulse Ox 100 99 100 O2 Delivery Nasal Cannula Nasal Cannula Nasal Cannula Room Air O2 Flow Rate 1.0 12/30/16 12/30/16 12/30/16 12/30/16 14:00 14:57 14:59 15:00 Pulse 88 B/P (MAP) 158/67 (97) 155/67 142/68 (92) Pulse Ox 98 99 92 O2 Delivery Room Air Nasal Cannula Room Air O2 Flow Rate 1.0 12/30/16 12/30/16 12/30/16 12/30/16 16:00 17:27 19:00 19:56 Pulse 96 Resp 20 16 B/P (MAP) 123/60 (81) Pulse Ox 92 93 93 O2 Delivery Nasal Cannula Nasal Cannula Room Air Room Air O2 Flow Rate 2.0 2.0 12/30/16 12/30/16 12/30/16 12/30/16 20:00 21:00 21:12 21:13 Temp 98.5 98.5 Pulse 93 104 100 100 Resp 18 16 B/P (MAP) 115/61 (79) 121/58 (79) 121/58 121/58 Pulse Ox 94 93 O2 Delivery Room Air Room Air 12/30/16 12/30/16 12/31/16 12/31/16 22:00 23:00 00:00 01:00 Temp 98.3 98.3 Pulse 95 99 95 85 Resp 16 B/P (MAP) 125/64 (84) 143/72 (95) 155/76 (102) 165/79 (107) Pulse Ox 99 99 99 99 O2 Delivery Nasal Cannula Nasal Cannula Nasal Cannula Nasal Cannula O2 Flow Rate 2.0 2.0 2.0 2.0 12/31/16 12/31/16 12/31/16 12/31/16 02:00 03:00 04:00 05:00 Temp 97.5 97.5 Pulse 92 85 90 88 Resp 21 B/P (MAP) 172/86 (114) 169/80 (109) 175/81 (112) 166/81 (109) Pulse Ox 99 100 100 99 O2 Delivery Nasal Cannula Nasal Cannula Nasal Cannula Nasal Cannula O2 Flow Rate 2.0 2.0 2.0 2.0 12/31/16 12/31/16 12/31/16 12/31/16 06:00 06:14 07:00 08:00 Pulse 87 93 95 Resp B/P (MAP) 172/75 (107) 172/75 116/51 (72) Pulse Ox 100 95 O2 Delivery Nasal Cannula Room Air Room Air O2 Flow Rate 2.0 12/31/16 12/31/16 12/31/16 12/31/16 08:00 08:23 08:23 10:15 Temp 98.0 98.0 Pulse 105 100 100 Resp B/P (MAP) 118/58 (78) 118/58 118/58 Pulse Ox 96 98 O2 Delivery Room Air Room Air Intake and Output 12/31/16 12/31/16 01/01/17 14:59 22:59 06:59 Output Total 175 ml Balance -175 ml KYARA DRUMMOND MD Dec 31, 2016 10:43
--- NOTE | 2016-12-31 12:28 | PDOC ---
PROGRESS NOTES Chief Complaint Chief Complaint CC: Chest pain/SOA NSTEMI Accelerated HTN: HLD Systolic murmur Diabetes History of Present Illness History of Present Illness POD-2. Pt's chest pain and dyspnea are improving. Had a pleasant conversation w/ pt's family today in the ICU. Vitals Vitals Vital Signs Date Time Temp Pulse Resp B/P (MAP) Pulse Ox O2 Delivery O2 Flow Rate FiO2 12/31/16 12:04 98.1 82 22 104/60 (75) 97 Room Air 98.1 12/31/16 06:00 2.0 Physical Exam Physical Exam GENERAL: NAD, Alert HEENT: PERRL, OC/OP NECK: Supple, no JVD, no LN LUNGS: Clear HEART: S1S2, no gallop, no murmur ABD: Soft, NT, no organomegaly, no rebound EXT: No edema, no cyanosis GRINDER DRESSER: Alert, oriented x 3, no focal neurologic deficit SKIN: No rash IV: ok General: Alert, Oriented X3, Cooperative, No acute distress Heart: Regular rate Lungs: Clear Abdomen: Normal bowel sounds, Soft, No tenderness Extremities: No edema Skin: No significant lesion Labs LABS Laboratory Tests Test 12/30/16 17:47 12/30/16 21:17 12/31/16 06:15 Glucose (Fingerstick) 247 mg/dL (70-99) 227 mg/dL (70-99) White Blood Count 11.4 x10^3/uL (4.0-11.0) Red Blood Count 3.11 x10^6/uL (4.30-5.70) Hemoglobin 10.0 g/dL (13.0-17.5) Hematocrit 28.7 % (39.0-53.0) Mean Corpuscular Volume 92 fL (79-100) Mean Corpuscular Hemoglobin 32 pg (25-35) Mean Corpuscular Hemoglobin Concent 35 g/dL (31-37) Red Cell Distribution Width 13.4 % (11.5-14.5) Platelet Count 108 x10^3/uL (140-400) Neutrophils (%) (Auto) 84 % (31-73) Lymphocytes (%) (Auto) 8 % (24-48) Monocytes (%) (Auto) 8 % (0-9) Eosinophils (%) (Auto) 0 % (0-3) Basophils (%) (Auto) 0 % (0-3) Neutrophils # (Auto) 9.6 x10^3uL (1.8-7.7) Lymphocytes # (Auto) 0.9 x10^3/uL (1.0-4.8) Monocytes # (Auto) 0.9 x10^3/uL (0.0-1.1) Eosinophils # (Auto) 0.0 x10^3/uL (0.0-0.7) Basophils # (Auto) 0.0 x10^3/uL (0.0-0.2) Sodium Level 131 mmol/L (136-145) Potassium Level 4.2 mmol/L (3.5-5.1) Chloride Level 98 mmol/L (98-107) Carbon Dioxide Level 26 mmol/L (21-32) Anion Gap 7 (6-14) Blood Urea Nitrogen 17 mg/dL (8-26) Creatinine 0.7 mg/dL (0.7-1.3) Estimated GFR (Cockcroft-Gault) 109.1 BUN/Creatinine Ratio 24 (6-20) Glucose Level 236 mg/dL (70-99) Calcium Level 9.1 mg/dL (8.5-10.1) Magnesium Level 1.7 mg/dL (1.8-2.4) Total Bilirubin 0.7 mg/dL (0.2-1.0) Aspartate Amino Transf (AST/SGOT) 45 U/L (15-37) Alanine Aminotransferase (ALT/SGPT) 41 U/L (16-63) Alkaline Phosphatase 49 U/L (46-116) Total Protein 6.2 g/dL (6.4-8.2) Albumin 3.1 g/dL (3.4-5.0) Albumin/Globulin Ratio 1.0 (1.0-1.7) Review of Systems Review of Systems Pt complains of sore cath site Pt complains of fatigue Assessment and Plan Assessmemt and Plan CC: CP/SOA NSTEMI: CABG X3 on 12/29, continue ASA and heparin gtt, EF 60-65%, continue pain meds, continue wound care Accelerated HTN: switch home meds to BB, hold HCTZ, cont CCB for now. Hydralazine IV PRN. Thrombocytopenia: Continue to monitor, still >100 HLD: resume statin; lipids well controlled Systolic murmur: echo WNL, no valvular abn Diabetes: hold oral antihyperglycemics, switch to levemir and ISS Hope to DC POD-5 Problems: Comment Review of Relevant I have reviewed the following items florence (where applicable) has been applied. Labs Laboratory Tests Test 12/29/16 12:39 12/29/16 12:42 12/29/16 13:14 12/29/16 13:19 Bedside Hemoglobin (Calculated) 6.8 g/dL (14-18) 8.8 g/dL (14-18) Bedside Hematocrit 20 % (37-52) 26 % (37-52) Bedside Arterial pH 7.42 (7.35-7.45) 7.44 (7.35-7.45) Bedside Arterial pCO2 39 mmHg (35-45) 37 mmHg (35-45) Bedside Arterial pO2 350 mmHg (75-100) 388 mmHg (75-100) Bedside Arterial HCO3 25 mmol/L (21-28) 25 mmol/L (21-28) Bedside Arterial Total CO2 26 mmol/L (21-32) 26 mmol/L (21-32) Arterial Bld O2 Saturation (Measur) 100 % (95-99) 100 % (95-99) Bedside Arterial Blood Base Excess 0 mmol/L (0-3) 1 mmol/L (0-3) Bedside FiO2 100.0 100.0 Bedside Sodium 129 mmol/L (135-145) 131 mmol/L (135-145) Bedside Potassium 3.6 mmol/L (3.5-5.0) 3.6 mmol/L (3.5-5.0) Glucose Level 216 mg/dL (70-99) 189 mg/dL (70-99) Bedside Ionized Calcium (Jackelyn) 1.60 mmol/L (1.13-1.32) 1.47 mmol/L (1.13-1.32) Activated Clotting Time 140 SEC (90-125) 200 SEC (90-125) Test 12/29/16 13:22 12/29/16 13:29 12/29/16 14:30 12/29/16 14:34 Activated Clotting Time 130 SEC (90-125) White Blood Count 10.8 x10^3/uL (4.0-11.0) 11.3 x10^3/uL (4.0-11.0) Hemoglobin 9.2 g/dL (13.0-17.5) 9.8 g/dL (13.0-17.5) Hematocrit 26.0 % (39.0-53.0) 27.7 % (39.0-53.0) Platelet Count 85 x10^3/uL (140-400) 104 x10^3/uL (140-400) Prothrombin Time 19.2 SEC (11.7-14.0) 17.1 SEC (11.7-14.0) Prothromb Time International Ratio 1.7 (0.8-1.1) 1.5 (0.8-1.1) Activated Partial Thromboplast Time 34 SEC (24-38) 36 SEC (24-38) Fibrinogen 258 mg/dL (200-440) Red Blood Count 3.07 x10^6/uL (4.30-5.70) Mean Corpuscular Volume 90 fL (79-100) Mean Corpuscular Hemoglobin 32 pg (25-35) Mean Corpuscular Hemoglobin Concent 36 g/dL (31-37) Red Cell Distribution Width 13.4 % (11.5-14.5) Sodium Level 133 mmol/L (136-145) Potassium Level 3.5 mmol/L (3.5-5.1) Chloride Level 100 mmol/L (98-107) Carbon Dioxide Level 23 mmol/L (21-32) Anion Gap 10 (6-14) Blood Urea Nitrogen 14 mg/dL (8-26) Creatinine 1.0 mg/dL (0.7-1.3) Estimated GFR (Cockcroft-Gault) 72.3 Glucose Level 144 mg/dL (70-99) Calcium Level 9.7 mg/dL (8.5-10.1) Magnesium Level 2.1 mg/dL (1.8-2.4) Glucose (Fingerstick) 158 mg/dL (70-99) Test 12/29/16 15:51 12/29/16 17:03 12/29/16 18:15 12/29/16 19:12 Glucose (Fingerstick) 131 mg/dL (70-99) 158 mg/dL (70-99) 176 mg/dL (70-99) 178 mg/dL (70-99) Test 12/29/16 19:25 12/29/16 20:04 12/29/16 20:31 12/29/16 21:30 White Blood Count 12.7 x10^3/uL (4.0-11.0) Red Blood Count 2.86 x10^6/uL (4.30-5.70) Hemoglobin 9.1 g/dL (13.0-17.5) Hematocrit 26.2 % (39.0-53.0) Mean Corpuscular Volume 92 fL (79-100) Mean Corpuscular Hemoglobin 32 pg (25-35) Mean Corpuscular Hemoglobin Concent 35 g/dL (31-37) Red Cell Distribution Width 13.3 % (11.5-14.5) Platelet Count 99 x10^3/uL (140-400) Potassium Level 4.1 mmol/L (3.5-5.1) Magnesium Level 2.2 mg/dL (1.8-2.4) O2 Saturation 98 % (92-99) Arterial Blood pH 7.41 (7.35-7.45) Arterial Blood pCO2 at Patient Temp 36 mmHg (35-46) Arterial Blood pO2 at Patient Temp 134 mmHg (65-108) Arterial Blood HCO3 22 mmol/L (21-28) Arterial Blood Base Excess -2 mmol/L (-3-3) FiO2 40 Glucose (Fingerstick) 150 mg/dL (70-99) 162 mg/dL (70-99) Test 12/29/16 22:27 12/29/16 23:33 12/30/16 00:35 12/30/16 01:36 Glucose (Fingerstick) 149 mg/dL (70-99) 155 mg/dL (70-99) 158 mg/dL (70-99) 137 mg/dL (70-99) Test 12/30/16 02:35 12/30/16 04:30 12/30/16 05:30 12/30/16 06:33 Glucose (Fingerstick) 143 mg/dL (70-99) 121 mg/dL (70-99) 123 mg/dL (70-99) 132 mg/dL (70-99) White Blood Count 12.3 x10^3/uL (4.0-11.0) Red Blood Count 3.02 x10^6/uL (4.30-5.70) Hemoglobin 9.5 g/dL (13.0-17.5) Hematocrit 27.7 % (39.0-53.0) Mean Corpuscular Volume 92 fL (79-100) Mean Corpuscular Hemoglobin 32 pg (25-35) Mean Corpuscular Hemoglobin Concent 35 g/dL (31-37) Red Cell Distribution Width 13.6 % (11.5-14.5) Platelet Count 115 x10^3/uL (140-400) Sodium Level 134 mmol/L (136-145) Potassium Level 3.5 mmol/L (3.5-5.1) Chloride Level 100 mmol/L (98-107) Carbon Dioxide Level 25 mmol/L (21-32) Anion Gap 9 (6-14) Blood Urea Nitrogen 13 mg/dL (8-26) Creatinine 0.8 mg/dL (0.7-1.3) Estimated GFR (Cockcroft-Gault) 93.5 Glucose Level 124 mg/dL (70-99) Calcium Level 9.3 mg/dL (8.5-10.1) Magnesium Level 1.7 mg/dL (1.8-2.4) Test 12/30/16 08:21 12/30/16 09:25 12/30/16 10:29 12/30/16 12:07 Glucose (Fingerstick) 135 mg/dL (70-99) 236 mg/dL (70-99) 201 mg/dL (70-99) 211 mg/dL (70-99) Test 12/30/16 17:47 12/30/16 21:17 12/31/16 06:15 Glucose (Fingerstick) 247 mg/dL (70-99) 227 mg/dL (70-99) White Blood Count 11.4 x10^3/uL (4.0-11.0) Red Blood Count 3.11 x10^6/uL (4.30-5.70) Hemoglobin 10.0 g/dL (13.0-17.5) Hematocrit 28.7 % (39.0-53.0) Mean Corpuscular Volume 92 fL (79-100) Mean Corpuscular Hemoglobin 32 pg (25-35) Mean Corpuscular Hemoglobin Concent 35 g/dL (31-37) Red Cell Distribution Width 13.4 % (11.5-14.5) Platelet Count 108 x10^3/uL (140-400) Neutrophils (%) (Auto) 84 % (31-73) Lymphocytes (%) (Auto) 8 % (24-48) Monocytes (%) (Auto) 8 % (0-9) Eosinophils (%) (Auto) 0 % (0-3) Basophils (%) (Auto) 0 % (0-3) Neutrophils # (Auto) 9.6 x10^3uL (1.8-7.7) Lymphocytes # (Auto) 0.9 x10^3/uL (1.0-4.8) Monocytes # (Auto) 0.9 x10^3/uL (0.0-1.1) Eosinophils # (Auto) 0.0 x10^3/uL (0.0-0.7) Basophils # (Auto) 0.0 x10^3/uL (0.0-0.2) Sodium Level 131 mmol/L (136-145) Potassium Level 4.2 mmol/L (3.5-5.1) Chloride Level 98 mmol/L (98-107) Carbon Dioxide Level 26 mmol/L (21-32) Anion Gap 7 (6-14) Blood Urea Nitrogen 17 mg/dL (8-26) Creatinine 0.7 mg/dL (0.7-1.3) Estimated GFR (Cockcroft-Gault) 109.1 BUN/Creatinine Ratio 24 (6-20) Glucose Level 236 mg/dL (70-99) Calcium Level 9.1 mg/dL (8.5-10.1) Magnesium Level 1.7 mg/dL (1.8-2.4) Total Bilirubin 0.7 mg/dL (0.2-1.0) Aspartate Amino Transf (AST/SGOT) 45 U/L (15-37) Alanine Aminotransferase (ALT/SGPT) 41 U/L (16-63) Alkaline Phosphatase 49 U/L (46-116) Total Protein 6.2 g/dL (6.4-8.2) Albumin 3.1 g/dL (3.4-5.0) Albumin/Globulin Ratio 1.0 (1.0-1.7) Laboratory Tests Test 12/30/16 17:47 12/30/16 21:17 12/31/16 06:15 Glucose (Fingerstick) 247 mg/dL (70-99) 227 mg/dL (70-99) White Blood Count 11.4 x10^3/uL (4.0-11.0) Red Blood Count 3.11 x10^6/uL (4.30-5.70) Hemoglobin 10.0 g/dL (13.0-17.5) Hematocrit 28.7 % (39.0-53.0) Mean Corpuscular Volume 92 fL (79-100) Mean Corpuscular Hemoglobin 32 pg (25-35) Mean Corpuscular Hemoglobin Concent 35 g/dL (31-37) Red Cell Distribution Width 13.4 % (11.5-14.5) Platelet Count 108 x10^3/uL (140-400) Neutrophils (%) (Auto) 84 % (31-73) Lymphocytes (%) (Auto) 8 % (24-48) Monocytes (%) (Auto) 8 % (0-9) Eosinophils (%) (Auto) 0 % (0-3) Basophils (%) (Auto) 0 % (0-3) Neutrophils # (Auto) 9.6 x10^3uL (1.8-7.7) Lymphocytes # (Auto) 0.9 x10^3/uL (1.0-4.8) Monocytes # (Auto) 0.9 x10^3/uL (0.0-1.1) Eosinophils # (Auto) 0.0 x10^3/uL (0.0-0.7) Basophils # (Auto) 0.0 x10^3/uL (0.0-0.2) Sodium Level 131 mmol/L (136-145) Potassium Level 4.2 mmol/L (3.5-5.1) Chloride Level 98 mmol/L (98-107) Carbon Dioxide Level 26 mmol/L (21-32) Anion Gap 7 (6-14) Blood Urea Nitrogen 17 mg/dL (8-26) Creatinine 0.7 mg/dL (0.7-1.3) Estimated GFR (Cockcroft-Gault) 109.1 BUN/Creatinine Ratio 24 (6-20) Glucose Level 236 mg/dL (70-99) Calcium Level 9.1 mg/dL (8.5-10.1) Magnesium Level 1.7 mg/dL (1.8-2.4) Total Bilirubin 0.7 mg/dL (0.2-1.0) Aspartate Amino Transf (AST/SGOT) 45 U/L (15-37) Alanine Aminotransferase (ALT/SGPT) 41 U/L (16-63) Alkaline Phosphatase 49 U/L (46-116) Total Protein 6.2 g/dL (6.4-8.2) Albumin 3.1 g/dL (3.4-5.0) Albumin/Globulin Ratio 1.0 (1.0-1.7) Medications Current Medications Sodium Chloride 1,000 ml @ 100 mls/hr Q10H IV Last administered on 12/26/16 11:46; Start 12/26/16 at 11:30; Stop 12/26/16 at 21:29; Status DC Aspirin (Children'S Aspirin) 324 mg 1X ONCE PO Last administered on 12/26/16 11:46; Start 12/26/16 at 11:30; Stop 12/26/16 at 11:31; Status DC Heparin Sodium (Porcine) (Heparin Sodium) 4,000 unit 1X ONCE IV Last administered on 12/26/16 14:02; Start 12/26/16 at 13:30; Stop 12/26/16 at 13:31 ; Status DC Heparin Sodium/ Dextrose 500 ml @ 0 mls/hr CONT PRN IV SEE I/O RECORD Last administered on 12/27/16 21:02; Start 12/26/16 at 13:15; Stop 12/28/16 at 23:55 ; Status DC Info (Anti-Coagulation Monitoring By Pharmacy) 1 each PRN DAILY PRN MC SEE COMMENTS Last administered on 12/28/16 09:02; Start 12/26/16 at 13:30; Stop at 14:10; Status DC Hydralazine HCl (Apresoline) 10 mg PRN Q4HRS PRN IVP ELEVATED BP, SEE COMMENTS Last administered on 12/31/16 06:14; Start 12/26/16 at 15:30 Aspirin (Ecotrin) 81 mg DAILY PO Last administered on 12/28/16 09:03; Start at 09:00; Stop 12/28/16 at 13:18; Status DC Dutasteride (Avodart) 0.5 mg QHS PO Last administered on 12/30/16 21:12; Start 12/26/16 at 21:00 Metformin HCl (Glucophage) 1,000 mg BIDWMEALS PO ; Start 12/26/16 at 20:00; Stop 12/27/16 at 12:02; Status DC Tamsulosin HCl (Flomax) 0.8 mg QHS PO Last administered on 12/30/16 21:13; Start 12/26/16 at 21:00 Glipizide (Glucotrol) 10 mg BIDBFRMEAL PO ; Start 12/27/16 at 07:30; Stop at 16:39; Status DC Hydrochlorothiazide (Hydrodiuril) 25 mg DAILY PO ; Start 12/27/16 at 09:00; Stop 12/27/16 at 12:02; Status DC Meloxicam (Mobic) 15 mg DAILY PO Last administered on 12/27/16 13:38; Start at 09:00; Stop 12/27/16 at 13:50; Status DC Multivitamins (Thera M Plus) 1 tab QHS PO Last administered on 12/27/16 21:13 ; Start 12/26/16 at 21:00; Stop 12/28/16 at 13:18; Status DC Pantoprazole Sodium (Protonix) 40 mg DAILYAC PO Last administered on 12/28/16 09:02; Start 12/27/16 at 07:30; Stop 12/28/16 at 13:18; Status DC Atorvastatin Calcium (Lipitor) 5 mg QHS PO Last administered on 12/28/16 21:20 ; Start 12/26/16 at 21:00; Stop 12/29/16 at 15:15; Status DC Non-Formulary Medication 450 mg QHS PO ; Start 12/26/16 at 21:00; Stop 12/26/16 at 21:00; Status DC Losartan Potassium (Cozaar) 100 mg DAILY PO Last administered on 12/27/16 09: 53; Start 12/27/16 at 09:00; Stop 12/27/16 at 13:50; Status DC Verapamil HCl (Calan Sr) 180 mg QHS PO Last administered on 12/28/16 21:20; Start 12/26/16 at 21:00; Stop 12/30/16 at 12:18; Status DC Hydrochlorothiazide (Hydrodiuril) 25 mg DAILY PO Last administered on 09:03; Start 12/27/16 at 09:00; Stop 12/28/16 at 11:51; Status DC Iohexol (Omnipaque 300 Mg/ml) 100 ml STK-MED ONCE .ROUTE ; Start 12/27/16 at 11: 07; Stop 12/27/16 at 11:08; Status DC Heparin Sodium/ Sodium Chloride 1,000 ml @ As Directed STK-MED ONCE .ROUTE ; Start 12/27/16 at 11:07; Stop 12/27/16 at 11:08; Status DC Lidocaine HCl 20 ml STK-MED ONCE .ROUTE ; Start 12/27/16 at 11:07; Stop at 11:08; Status DC Verapamil HCl (Verapamil) 5 mg STK-MED ONCE .ROUTE ; Start 12/27/16 at 11:28; Stop 12/27/16 at 11:29; Status DC Heparin Sodium (Porcine) (Heparin Sodium) 10,000 unit STK-MED ONCE .ROUTE ; Start 12/27/16 at 11:28; Stop 12/27/16 at 11:29; Status DC Fentanyl Citrate (Fentanyl 2ml Vial) 100 mcg STK-MED ONCE .ROUTE ; Start at 11:28; Stop 12/27/16 at 11:29; Status DC Midazolam HCl (Versed) 2 mg STK-MED ONCE .ROUTE ; Start 12/27/16 at 11:28; Stop 12/27/16 at 11:29; Status DC Nitroglycerin (Nitroglycerin) 200 mcg STK-MED ONCE .ROUTE ; Start 12/27/16 at 11 :30; Stop 12/27/16 at 11:31; Status DC Nitroglycerin (Nitroglycerin) 200 mcg 1X ONCE IART Last administered on 12:02; Start 12/27/16 at 12:00; Stop 12/27/16 at 12:01; Status DC Verapamil HCl (Verapamil) 2.5 mg 1X ONCE IART Last administered on 12/27/16 12:03; Start 12/27/16 at 12:00; Stop 12/27/16 at 12:01; Status DC Heparin Sodium (Porcine) (Heparin Sodium) 2,500 unit 1X ONCE IART Last administered on 12/27/16 12:00; Start 12/27/16 at 12:00; Stop 12/27/16 at 12:01 ; Status DC Heparin Sodium/ Sodium Chloride 1,000 unit 1X ONCE IART Last administered on 12:02; Start 12/27/16 at 12:00; Stop 12/27/16 at 12:01; Status DC Midazolam HCl (Versed) 2 mg 1X ONCE IV Last administered on 12/27/16 12:05; Start 12/27/16 at 12:00; Stop 12/27/16 at 12:01; Status DC Fentanyl Citrate (Fentanyl 2ml Vial) 100 mcg 1X ONCE IV Last administered on 12:04; Start 12/27/16 at 12:00; Stop 12/27/16 at 12:01; Status DC Iohexol (Omnipaque 300 Mg/ml) 100 ml 1X ONCE IART Last administered on 12:00; Start 12/27/16 at 12:00; Stop 12/27/16 at 12:01; Status DC Lidocaine HCl 20 ml 1X ONCE IJ Last administered on 12/27/16 12:03; Start at 12:00; Stop 12/27/16 at 12:01; Status DC Heparin Sodium (Porcine) (Heparin Sodium) 3,000 unit 1X ONCE IV Last administered on 12/27/16 12:00; Start 12/27/16 at 12:00; Stop 12/27/16 at 12:02 ; Status DC Metformin HCl (Glucophage) 1,000 mg BIDWMEALS PO ; Start 12/29/16 at 17:00; Stop 12/29/16 at 17:00; Status DC Info (Do NOT chart on this entry -- for MONITORING) 1 each PRN DAILY PRN MC SEE COMMENTS; Start 12/27/16 at 12:15; Stop 12/29/16 at 12:14; Status DC Metoprolol Tartrate (Lopressor) 25 mg 1X ONCE PO ; Start 12/29/16 at 06:00; Stop 12/29/16 at 06:00; Status DC Cefazolin Sodium 1 gm/Sodium Chloride 50 ml @ 100 mls/hr 1X ONCE IV ; Start at 06:00; Stop 12/29/16 at 06:29; Status DC Insulin Detemir (Levemir) 10 units QHS SQ Last administered on 12/30/16 21:38; Start 12/27/16 at 21:00 Insulin Aspart (NovoLOG) 0-9 UNITS TIDWMEALS SQ Last administered on 12/31/16 08:25; Start 12/27/16 at 17:00 Dextrose (Dextrose 50%-Water Syringe) 12.5 gm PRN Q15MIN PRN IV SEE COMMENTS; Start 12/27/16 at 16:45; Status Cancel Metoprolol Tartrate (Lopressor) 25 mg BID PO Last administered on 12/28/16 21: 21; Start 12/27/16 at 21:00; Stop 12/28/16 at 23:00; Status DC Cefazolin Sodium 1 gm/Sodium Chloride 500 ml @ 500 mls/hr 1X PERIOP ONCE IRR Last administered on 12/29/16 08:45; Start 12/29/16 at 06:00; Stop 12/29/16 at 06:59; Status DC Potassium Chloride 70 meq/ Sodium Bicarbonate 12.5 meq/Lidocaine HCl 24 ml/ Parenteral Electrolytes 571.5 ml @ 571.5 mls/ hr 1X PERIOP ONCE IRR Last administered on 12/29/16 10:31; Start 12/29/16 at 06:00; Stop 12/29/16 at 06:59 ; Status DC Potassium Chloride 15 meq/ Sodium Bicarbonate 12.5 meq/Parenteral Electrolytes 520 ml @ 520 mls/hr 1X PERIOP ONCE IRR Last administered on 12/29/16 10:31; Start 12/29/16 at 06:00; Stop 12/29/16 at 06:59; Status DC Heparin Sodium (Porcine) 94073 unit/Ringer's Solution 1,020 ml @ 1,020 mls/hr 1X PERIOP ONCE IRR Last administered on 12/29/16 08:45; Start 12/29/16 at 06: 00; Stop 12/29/16 at 06:59; Status DC Ondansetron HCl (Zofran) 4 mg PRN Q6HRS PRN IV NAUSEA/VOMITING; Start 12/29/16 at 07:00; Stop 12/30/16 at 06:59; Status DC Fentanyl Citrate (Fentanyl 2ml Vial) 25 mcg PRN Q5MIN PRN IV MILD PAIN; Start 12/29/16 at 07:00; Stop 12/30/16 at 06:59; Status DC Fentanyl Citrate (Fentanyl 2ml Vial) 50 mcg PRN Q5MIN PRN IV MODERATE PAIN; Start 12/29/16 at 07:00; Stop 12/30/16 at 06:59; Status DC Morphine Sulfate 1 mg PRN Q10MIN PRN IV SEVERE PAIN; Start 12/29/16 at 07:00; Stop 12/30/16 at 06:59; Status DC Ringer's Solution 1,000 ml @ 30 mls/hr Q24H IV Last administered on 12/29/16t 07:00; Start 12/29/16 at 07:00; Stop 12/29/16 at 18:59; Status DC Lidocaine HCl 2 ml PRN 1X PRN ID PRIOR TO IV START; Start 12/29/16 at 07:00; Stop 12/30/16 at 06:59; Status DC Hydromorphone HCl (Dilaudid) 0.5 mg PRN Q10MIN PRN IV SEV PAIN, Second choice; Start 12/29/16 at 07:00; Stop 12/30/16 at 06:59; Status DC Prochlorperazine Edisylate (Compazine) 5 mg PACU PRN PRN IV NAUSEA, MRX1; Start 12/29/16 at 07:00; Stop 12/30/16 at 06:59; Status DC Aminocaproic Acid (Amicar) 5,000 mg STK-MED ONCE IV ; Start 12/29/16 at 05:49; Stop 12/29/16 at 05:50; Status DC Aminocaproic Acid (Amicar) 5,000 mg STK-MED ONCE IV ; Start 12/29/16 at 05:49; Stop 12/29/16 at 05:50; Status DC Aminocaproic Acid (Amicar) 5,000 mg STK-MED ONCE IV ; Start 12/29/16 at 05:49; Stop 12/29/16 at 05:50; Status DC Isoflurane (Isoflurane) 90 ml STK-MED ONCE IH ; Start 12/29/16 at 05:50; Stop at 05:51; Status DC Midazolam HCl (Versed) 5 mg STK-MED ONCE .ROUTE ; Start 12/29/16 at 05:58; Stop 12/29/16 at 05:59; Status DC Rocuronium [place] (Zemuron) 100 mg STK-MED ONCE .ROUTE ; Start 12/29/16 at 05: 58; Stop 12/29/16 at 05:59; Status DC Sufentanil Citrate (Sufenta) 100 mcg STK-MED ONCE .ROUTE ; Start 12/29/16 at 05: 59; Stop 12/29/16 at 06:00; Status DC Etomidate (Amidate) 20 mg STK-MED ONCE IV ; Start 12/29/16 at 05:59; Stop at 06:00; Status DC Heparin Sodium (Porcine) (Heparin Sodium) 10,000 unit STK-MED ONCE .ROUTE ; Start 12/29/16 at 05:59; Stop 12/29/16 at 06:00; Status DC Heparin Sodium (Porcine) (Heparin Sodium) 10,000 unit STK-MED ONCE .ROUTE ; Start 12/29/16 at 05:59; Stop 12/29/16 at 06:00; Status DC Heparin Sodium (Porcine) (Heparin Sodium) 10,000 unit STK-MED ONCE .ROUTE ; Start 12/29/16 at 05:59; Stop 12/29/16 at 06:00; Status DC Phenylephrine HCl (Cristian-Synephrine Inj) 10 mg STK-MED ONCE .ROUTE ; Start at 05:59; Stop 12/29/16 at 06:00; Status DC Phenylephrine HCl (Cristian-Synephrine Inj) 10 mg STK-MED ONCE .ROUTE ; Start at 05:59; Stop 12/29/16 at 06:00; Status DC Phenylephrine HCl (Cristian-Synephrine Inj) 10 mg STK-MED ONCE .ROUTE ; Start at 05:59; Stop 12/29/16 at 06:00; Status DC Nicardipine HCl (Cardene) 25 mg STK-MED ONCE IV ; Start 12/29/16 at 05:59; Stop 12/29/16 at 06:00; Status DC Lidocaine HCl (Lidocaine Pf 2% Vial) 5 ml STK-MED ONCE .ROUTE ; Start 12/29/16 at 06:00; Stop 12/29/16 at 06:01; Status DC Epinephrine HCl (EPINEPHrine SYRINGE) 1 mg STK-MED ONCE .ROUTE ; Start 12/29/16 at 06:00; Stop 12/29/16 at 06:01; Status DC Cefazolin Sodium 50 ml @ As Directed STK-MED ONCE IV ; Start 12/29/16 at 06:39; Stop 12/29/16 at 06:40; Status DC Cefazolin Sodium/ Dextrose 50 ml @ As Directed STK-MED ONCE IV ; Start 12/29/16 at 06:41; Stop 12/29/16 at 06:42; Status DC Cefazolin Sodium/ Dextrose 50 ml @ 100 mls/hr 1X ONCE IV Last administered on 12/29/16 08:25; Start 12/29/16 at 07:00; Stop 12/29/16 at 07:29; Status DC Cellulose 1 each STK-MED ONCE .ROUTE Last administered on 12/29/16 08:45; Start 12/29/16 at 06:53; Stop 12/29/16 at 06:54; Status DC Vancomycin HCl (Vanco) 10 gm STK-MED ONCE .ROUTE ; Start 12/29/16 at 06:53; Stop 12/29/16 at 06:54; Status DC Papaverine HCl 60 mg STK-MED ONCE .ROUTE Last administered on 12/29/16 08:45; Start 12/29/16 at 06:53; Stop 12/29/16 at 06:54; Status DC Aspirin (Aspirin) 300 mg STK-MED ONCE .ROUTE Last administered on 12/29/16 13: 38; Start 12/29/16 at 06:53; Stop 12/29/16 at 06:54; Status DC Sodium Chloride (Sodium Chloride) 50 ml STK-MED ONCE IJ Last administered on 08:45; Start 12/29/16 at 06:53; Stop 12/29/16 at 06:54; Status DC Vancomycin HCl (Vanco) 10 gm STK-MED ONCE .ROUTE ; Start 12/29/16 at 06:55; Stop 12/29/16 at 06:56; Status DC Succinylcholine Chloride (Anectine) 200 mg STK-MED ONCE .ROUTE ; Start 12/29/16 at 06:55; Stop 12/29/16 at 06:56; Status DC Vancomycin HCl (Vanco) 10 gm STK-MED ONCE .ROUTE Last administered on 08:45; Start 12/29/16 at 06:57; Stop 12/29/16 at 06:58; Status DC Sufentanil Citrate (Sufenta) 100 mcg STK-MED ONCE .ROUTE ; Start 12/29/16 at 08: 53; Stop 12/29/16 at 08:54; Status DC Norepinephrine Bitartrate 250 ml @ 1.875 mls/ hr 1X ONCE IV Last administered on 12/29/16 15:26; Start 12/29/16 at 09:30; Stop 01/03/17 at 22:49 Rocuronium [place] (Zemuron) 100 mg STK-MED ONCE .ROUTE ; Start 12/29/16 at 10: 34; Stop 12/29/16 at 10:35; Status DC Insulin Human Regular 150 unit/ Sodium Chloride 151.5 ml @ 0 mls/hr PRN 1X PRN IV . Last administered on 12/29/16 15:20; Start 12/29/16 at 11:30; Stop 12/30/16 at 08:02; Status DC Protamine Sulfate 250 mg STK-MED ONCE IV ; Start 12/29/16 at 11:43; Stop at 11:44; Status DC Protamine Sulfate 50 mg STK-MED ONCE IV ; Start 12/29/16 at 11:43; Stop at 11:44; Status DC Protamine Sulfate 50 mg STK-MED ONCE IV ; Start 12/29/16 at 12:33; Stop at 12:34; Status DC Protamine Sulfate 50 mg STK-MED ONCE IV ; Start 12/29/16 at 12:46; Stop at 12:47; Status DC Magnesium Sulfate 5 gm STK-MED ONCE .ROUTE ; Start 12/29/16 at 12:51; Stop 12/29 at 12:52; Status DC Heparin Sodium (Porcine) 30,000 unit STK-MED ONCE .ROUTE ; Start 12/29/16 at 12: 51; Stop 12/29/16 at 12:52; Status DC Lidocaine HCl (Lidocaine Pf 2% Vial) 5 ml STK-MED ONCE .ROUTE ; Start 12/29/16 at 12:51; Stop 12/29/16 at 12:52; Status DC Mannitol (Mannitol) 12.5 g STK-MED ONCE .ROUTE ; Start 12/29/16 at 12:51; Stop 12/29/16 at 12:52; Status DC Calcium Chloride 1,000 mg STK-MED ONCE IV ; Start 12/29/16 at 12:51; Stop at 12:52; Status DC Sodium Bicarbonate 50 meq STK-MED ONCE .ROUTE ; Start 12/29/16 at 12:51; Stop at 12:52; Status DC Albumin Human 200 ml @ As Directed STK-MED ONCE IV ; Start 12/29/16 at 12:51; Stop 12/29/16 at 12:52; Status DC Clevidipine 100 ml @ 0 mls/hr CONT PRN IV PER PROTOCOL Last administered on 15:59; Start 12/29/16 at 13:15 Sodium Chloride (Normal Saline Flush) 3 ml PRN Q12HR PRN IV AFTER MEDS AND BLOOD DRAWS; Start 12/29/16 at 13:30 Ringer's Solution 1,000 ml @ 30 mls/hr Q24H IV Last administered on 12/29/16 16:23; Start 12/29/16 at 13:20 Albumin Human 250 ml @ 60 mls/hr PRN Q4HRS PRN IV SEE I/O RECORD Last administered on 12/29/16 15:21; Start 12/29/16 at 13:30 Insulin Human Regular 150 unit/ Sodium Chloride 151.5 ml @ 0 mls/hr CONT PRN PRN IV SEE I/O RECORD; Start 12/29/16 at 13:30 Dextrose (Dextrose 50%-Water Syringe) 25 gm PRN Q15MIN PRN IV LOW BLOOD SUGAR; Start 12/29/16 at 13:30 Amiodarone HCl 150 mg/Dextrose 103 ml @ 200 mls/hr 1X PRN IV ; Start 12/29/16 at 14:30 Amiodarone HCl 900 mg/Dextrose 518 ml @ 33.33 mls/ hr STAT IV ; Start 12/29/16 at 13:30; Stop 12/29/16 at 13:55; Status DC Info 1 ea CONT PRN PRN MC SEE COMMENTS; Start 12/29/16 at 13:30 Info 1 ea CONT PRN PRN MC SEE COMMENTS; Start 12/29/16 at 13:30 Magnesium Sulfate/ Dextrose 100 ml @ 100 mls/hr PRN DAILY PRN IV FOR MAG < 2.2 Last administered on 12/30/16 09:02; Start 12/29/16 at 13:30 Famotidine (Pepcid) 20 mg BID IVP Last administered on 12/30/16 21:13; Start at 21:00; Stop 12/31/16 at 07:18; Status DC Ondansetron HCl (Zofran) 4 mg PRN Q4HRS PRN IV NAUSEA/VOMITING; Start 12/29/16 at 13:30 Morphine Sulfate 2 mg PRN Q1HR PRN IV PAIN Last administered on 12/30/16 14:59 ; Start 12/29/16 at 13:30 Acetaminophen (Tylenol) 650 mg PRN Q4HRS PRN PO MILD PAIN / TEMP; Start at 13:30 Meperidine HCl (Demerol) 12.5 mg PRN Q15MIN PRN IV SHIVERING Last administered on 12/29/16 16:19; Start 12/29/16 at 13:30; Stop 12/30/16 at 13:20; Status DC Propofol 100 ml @ 0 mls/hr CONT PRN PRN IV POSTOP SEDATION UNTIL EXTUBATE; Start 12/29/16 at 13:30 Senna/Docusate Sodium (Senna Plus) 1 tab BID PO Last administered on 12/31/16 08:23; Start 12/30/16 at 09:00 Bisacodyl (Dulcolax Supp) 10 mg PRN DAILY PRN MS NO BOWEL MOVEMENT; Start 12/29 at 13:30 Aspirin (Ecotrin) 325 mg DAILYWBKFT PO Last administered on 12/31/16 08:22; Start 12/30/16 at 08:00 Aspirin (Aspirin) 300 mg PRN DAILY PRN MS IF UNABLE TO TAKE PO; Start 12/29/16 at 13:30 Albuterol Sulfate (Ventolin Neb Soln) 2.5 mg PRN Q4HRS PRN NEB SHORTNESS OF BREATH; Start 12/29/16 at 13:30 Metoprolol Tartrate (Lopressor) 25 mg BID PO Last administered on 12/31/16 08: 23; Start 12/30/16 at 09:00 Oxycodone/ Acetaminophen (Percocet 5/325) 1 tab PRN Q4HRS PRN PO MILD PAIN Last administered on 12/31/16 10:15; Start 12/29/16 at 13:30 Oxycodone/ Acetaminophen (Percocet 5/325) 2 tab PRN Q4HRS PRN PO MODERATE PAIN , SEVERE PAIN; Start 12/29/16 at 13:30 Cefazolin Sodium 1 gm/Sodium Chloride 50 ml @ 100 mls/hr Q8H IV ; Start at 14:00; Stop 12/29/16 at 16:22; Status DC Polyethylene Glycol (miraLAX PACKET) 17 gm HS PO ; Start 12/30/16 at 21:00 Amiodarone HCl 900 mg/Dextrose 518 ml @ 33.33 mls/ hr CONT PRN IV ; Start at 14:00 Atorvastatin Calcium (Lipitor) 20 mg QHS PO Last administered on 12/30/16 21:12 ; Start 12/29/16 at 21:00 Potassium Chloride 50 ml @ 50 mls/hr Q1H IV Last administered on 12/29/16 16: 20; Start 12/29/16 at 15:30; Stop 12/29/16 at 17:29; Status DC Magnesium Sulfate/ Dextrose 100 ml @ 100 mls/hr 1X ONCE IV Last administered on 12/29/16 16:19; Start 12/29/16 at 15:30; Stop 12/29/16 at 16:29; Status DC Cefazolin Sodium 1 gm/Sodium Chloride 50 ml @ 100 mls/hr Q8H IV Last administered on 12/30/16 21:00; Start 12/29/16 at 20:00; Stop 12/30/16 at 20:01; Status DC Potassium Chloride 50 ml @ 50 mls/hr 1X ONCE IV Last administered on 20:58; Start 12/29/16 at 20:45; Stop 12/29/16 at 21:44; Status DC Furosemide (Lasix) 40 mg 1X ONCE IVP Last administered on 12/30/16 01:43; Start 12/30/16 at 02:00; Stop 12/30/16 at 02:01; Status DC Potassium Chloride 50 ml @ 50 mls/hr Q1H IV Last administered on 12/30/16 12:21 ; Start 12/30/16 at 07:15; Stop 12/30/16 at 10:14; Status DC Amiodarone HCl (Cordarone) 400 mg BID PO Last administered on 12/31/16 08:23; Start 12/30/16 at 13:00 Potassium Chloride 50 ml @ 50 mls/hr 1X ONCE IV Last administered on 12/31/16 08:23; Start 12/31/16 at 08:00; Stop 12/31/16 at 08:59; Status DC Famotidine (Pepcid) 20 mg BID PO Last administered on 12/31/16 08:26; Start 12/31/16 at 09:00 Magnesium Sulfate/ Dextrose 100 ml @ 100 mls/hr 1X ONCE IV Last administered on 12/31/16 10:17; Start 12/31/16 at 08:30; Stop 12/31/16 at 09:29; Status DC Active Scripts Active Reported Saw Downs (Saw Downs Fruit) 450 Mg Capsule 450 Mg PO QHS Tamsulosin Hcl 0.4 Mg Cap.er.24h 2 Cap PO QHS Verapamil Sr (Verapamil HCl) 180 Mg Cap24h.pel 180 Mg PO QHS Avodart (Dutasteride) 0.5 Mg Capsule 1 Cap PO QHS Multivitamins (Multivitamin) 1 Each Tablet 1 Tab PO QHS Aspir 81 (Aspirin) 81 Mg Tablet.dr 1 Tab PO DAILY Meloxicam 15 Mg Tablet 1 Tab PO DAILY Hydrochlorothiazide Tablet (Hydrochlorothiazide) 50 Mg Tablet 0.5 Tab PO DAILY Pravastatin Sodium 20 Mg Tablet 1 Tab PO DAILY Omeprazole 20 Mg Capsule.dr 1 Cap PO DAILY Glipizide 10 Mg Tablet 1 Tab PO BID Metformin Hcl 1,000 Mg Tablet 1,000 Mg PO BID Diovan Hct 320-25 Mg Tablet (Valsartan/Hydrochlorothiazide) 1 Each Tablet 1 Tab PO DAILY Vitals/I & O Vital Sign - Last 24 Hours 12/30/16 12/30/16 12/30/16 12/30/16 13:00 14:00 14:57 14:59 Pulse 88 B/P (MAP) 126/59 (81) 158/67 (97) 155/67 Pulse Ox 100 98 99 O2 Delivery Room Air Room Air Nasal Cannula O2 Flow Rate 1.0 12/30/16 12/30/16 12/30/16 12/30/16 15:00 16:00 17:27 19:00 Pulse 96 Resp 20 B/P (MAP) 142/68 (92) 123/60 (81) Pulse Ox 92 92 93 O2 Delivery Room Air Nasal Cannula Nasal Cannula Room Air O2 Flow Rate 2.0 2.0 12/30/16 12/30/16 12/30/16 12/30/16 19:56 20:00 21:00 21:12 Temp 98.5 98.5 Pulse 93 104 100 Resp 16 18 16 B/P (MAP) 115/61 (79) 121/58 (79) 121/58 Pulse Ox 93 94 93 O2 Delivery Room Air Room Air Room Air 12/30/16 12/30/16 12/30/16 12/31/16 21:13 22:00 23:00 00:00 Temp 98.3 98.3 Pulse 100 95 99 95 Resp 16 21 20 B/P (MAP) 121/58 125/64 (84) 143/72 (95) 155/76 (102) Pulse Ox 99 99 99 O2 Delivery Nasal Cannula Nasal Cannula Nasal Cannula O2 Flow Rate 2.0 2.0 2.0 12/31/16 12/31/16 12/31/16 12/31/16 01:00 02:00 03:00 04:00 Temp 97.5 97.5 Pulse 85 92 85 90 Resp 17 22 20 21 B/P (MAP) 165/79 (107) 172/86 (114) 169/80 (109) 175/81 (112) Pulse Ox 99 99 100 100 O2 Delivery Nasal Cannula Nasal Cannula Nasal Cannula Nasal Cannula O2 Flow Rate 2.0 2.0 2.0 2.0 12/31/16 12/31/16 12/31/16 12/31/16 05:00 06:00 06:14 07:00 Pulse 88 87 93 95 Resp 18 16 B/P (MAP) 166/81 (109) 172/75 (107) 172/75 116/51 (72) Pulse Ox 99 100 95 O2 Delivery Nasal Cannula Nasal Cannula Room Air O2 Flow Rate 2.0 2.0 12/31/16 12/31/16 12/31/16 12/31/16 08:00 08:00 08:23 08:23 Temp 98.0 98.0 Pulse 105 100 100 Resp 21 B/P (MAP) 118/58 (78) 118/58 118/58 Pulse Ox 96 O2 Delivery Room Air Room Air 12/31/16 12/31/16 10:15 12:04 Temp 98.1 98.1 Pulse 82 Resp 20 22 B/P (MAP) 104/60 (75) Pulse Ox 98 97 O2 Delivery Room Air Room Air Intake and Output 12/31/16 12/31/16 01/01/17 15:00 23:00 07:00 Output Total 175 ml Balance -175 ml TIAN MONTERO III DO Dec 31, 2016 12:28
--- NOTE | 2016-12-31 13:13 | PDOC ---
Progress Note Subjective Subjective Doing very well. No issues. Normotensive and SR. On room air. Minimal drainage from pleural tubes. Hb:10, Creat:0,7. 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, no focal neurologic deficit SKIN: No rash IV: ok Labs Lab Laboratory Tests Test 12/30/16 17:47 12/30/16 21:17 12/31/16 06:15 12/31/16 12:55 Glucose (Fingerstick) 247 mg/dL (70-99) 227 mg/dL (70-99) 289 mg/dL (70-99) White Blood Count 11.4 x10^3/uL (4.0-11.0) Red Blood Count 3.11 x10^6/uL (4.30-5.70) Hemoglobin 10.0 g/dL (13.0-17.5) Hematocrit 28.7 % (39.0-53.0) Mean Corpuscular Volume 92 fL (79-100) Mean Corpuscular Hemoglobin 32 pg (25-35) Mean Corpuscular Hemoglobin Concent 35 g/dL (31-37) Red Cell Distribution Width 13.4 % (11.5-14.5) Platelet Count 108 x10^3/uL (140-400) Neutrophils (%) (Auto) 84 % (31-73) Lymphocytes (%) (Auto) 8 % (24-48) Monocytes (%) (Auto) 8 % (0-9) Eosinophils (%) (Auto) 0 % (0-3) Basophils (%) (Auto) 0 % (0-3) Neutrophils # (Auto) 9.6 x10^3uL (1.8-7.7) Lymphocytes # (Auto) 0.9 x10^3/uL (1.0-4.8) Monocytes # (Auto) 0.9 x10^3/uL (0.0-1.1) Eosinophils # (Auto) 0.0 x10^3/uL (0.0-0.7) Basophils # (Auto) 0.0 x10^3/uL (0.0-0.2) Sodium Level 131 mmol/L (136-145) Potassium Level 4.2 mmol/L (3.5-5.1) Chloride Level 98 mmol/L (98-107) Carbon Dioxide Level 26 mmol/L (21-32) Anion Gap 7 (6-14) Blood Urea Nitrogen 17 mg/dL (8-26) Creatinine 0.7 mg/dL (0.7-1.3) Estimated GFR (Cockcroft-Gault) 109.1 BUN/Creatinine Ratio 24 (6-20) Glucose Level 236 mg/dL (70-99) Calcium Level 9.1 mg/dL (8.5-10.1) Magnesium Level 1.7 mg/dL (1.8-2.4) Total Bilirubin 0.7 mg/dL (0.2-1.0) Aspartate Amino Transf (AST/SGOT) 45 U/L (15-37) Alanine Aminotransferase (ALT/SGPT) 41 U/L (16-63) Alkaline Phosphatase 49 U/L (46-116) Total Protein 6.2 g/dL (6.4-8.2) Albumin 3.1 g/dL (3.4-5.0) Albumin/Globulin Ratio 1.0 (1.0-1.7) Objective Assessment POD#2, 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 Doing very well. No issues. Normotensive and SR. On room air. Minimal drainage from pleural tubes. Hb:10, Creat:0,7. Plan Plan of Care D/c cosme D/c cordis/central line D/c pleural drain D/c pacing wires Oral amiodarone for AFib prophylaxis ASA, b-ilya, statin Encourage ambulation, I/S On track to d/c home on Monday, POD#4 MEGAN CASSIDY MD Dec 31, 2016 13:13
[2016-12-31] MEDS: IV RINGERS,LACTATED 1000ML 1,000 ML IV SCH (13:20)
[2016-12-31] MEDS: DOCUSATE SODIUM 100 MG CAPSULE. PO SCH (21:00)
[2016-12-31] MEDS: DUTASTERIDE 0.5 MG CAPSULE PO SCH (21:00)
[2016-12-31] MEDS: ATORVASTATIN CALCIUM 20 MG TABLET PO SCH (21:00)
[2016-12-31] MEDS: POLYETHYLENE GLYCOL 3350 17 GM PACKET. PO SCH (21:00)
[2016-12-31] MEDS: TAMSULOSIN 0.4 MG CAP.ER.24H. PO SCH (21:00)
[2016-12-31] MEDS: INSULIN DETEMIR 300 UNITS/3 ML INSULN.PEN. SQ SCH (21:21)
[2017-01-01 03:00] VITALS: BP 127/68
[2017-01-01 05:57] LABS: BASO % 0 % (0-3); EOS % 1 % (0-3); HEMATOCRIT 22.8 % (39.0-53.0); HEMOGLOBIN 8.2 g/dL (13.0-17.5); LYMPH # 1.3 x10^3/uL (1.0-4.8); LYMPH % 13 % (24-48); MEAN CORPUSCULAR HEMOGLOBIN 32 pg (25-35); MEAN CORPUSCULAR HGB CONC 36 g/dL (31-37); MEAN CORPUSCULAR VOLUME 91 fL (79-100); MONO % 11 % (0-9); NEUT % 75 % (31-73); PLATELET COUNT 130 x10^3/uL (140-400); RED BLOOD COUNT 2.52 x10^6/uL (4.30-5.70); RED CELL DISTRIBUTION WIDTH 13.7 % (11.5-14.5); WHITE BLOOD COUNT 9.9 x10^3/uL (4.0-11.0)
[2017-01-01 06:11] LABS: CALCIUM 8.5 mg/dL (8.5-10.1); CREATININE 0.8 mg/dL (0.7-1.3); GFR 93.5; POTASSIUM 4.2 mmol/L (3.5-5.1)
[2017-01-01] MEDS: oxyCODONE/APAP 5/325 1 TAB TABLET PO PRN ×2 (06:46→20:46)
[2017-01-01 07:00] VITALS: BP 123/64
[2017-01-01] MEDS: ASPIRIN ENTERIC COATED 325 MG TABLET.DR. PO SCH (08:46)
[2017-01-01] MEDS: AMIODARONE HCL 200 MG TABLET. PO SCH ×2 (08:46→20:44)
[2017-01-01] MEDS: SENNOSIDES/DOCUSATE 8.6/50MG TABLET. PO SCH ×2 (08:46→20:42)
[2017-01-01] MEDS: DOCUSATE SODIUM 100 MG CAPSULE. PO SCH (08:46)
[2017-01-01] MEDS: FAMOTIDINE 20 MG TABLET. PO SCH ×2 (08:46→20:44)
[2017-01-01] MEDS: INSULIN ASPART 300 UNITS/3 ML INSULN.PEN SQ SCH ×3 (08:51→17:00)
--- NOTE | 2017-01-01 09:41 | RAD ---
Examination: Single frontal view the chest History: History of postoperative comparison: 12/31/2016 Findings: Interval removal of internal jugular line sheath. There is interval removal of left-sided chest tube. Small left lung base airspace opacity likely atelectasis or infiltrate and trace left pleural effusion unchanged. Impression: Interval removal of right internal jugular line sheath and left chest tube. Unchanged mild left lung base airspace opacity likely atelectasis or infiltrate and trace left pleural effusion.
[2017-01-01] MEDS: METOPROLOL TART IMMED RELEASE 25 MG TABLET. PO SCH ×2 (10:01→20:43)
[2017-01-01 11:00] VITALS: BP 116/66
[2017-01-01] MEDS: IV RINGERS,LACTATED 1000ML 1,000 ML IV SCH (13:20)
[2017-01-01 15:00] VITALS: BP 102/59
--- NOTE | 2017-01-01 16:47 | PDOC ---
PROGRESS NOTES Chief Complaint Chief Complaint CC: Chest pain/SOA NSTEMI Accelerated HTN: HLD Systolic murmur Diabetes History of Present Illness History of Present Illness POD #3 CABG x 3 Pt resting comfortably in bed, is at bedside. Reports chest pain and dyspnea improving, hoping to be discharged tomorrow. EF 60-65% Vitals Vitals Vital Signs Date Time Temp Pulse Resp B/P (MAP) Pulse Ox O2 Delivery O2 Flow Rate FiO2 01/01/17 15:00 98.4 86 16 102/59 (73) 95 Room Air 98.4 01/01/17 07:51 2.0 Physical Exam General: Alert, Oriented X3, Cooperative, No acute distress Heart: Regular rate Lungs: Clear Abdomen: Normal bowel sounds, Soft, No tenderness Extremities: No edema Skin: No significant lesion Labs LABS Laboratory Tests Test 12/31/16 16:32 12/31/16 21:15 01/01/17 04:30 01/01/17 07:19 Glucose (Fingerstick) 344 mg/dL (70-99) 281 mg/dL (70-99) 231 mg/dL (70-99) White Blood Count 9.9 x10^3/uL (4.0-11.0) Red Blood Count 2.52 x10^6/uL (4.30-5.70) Hemoglobin 8.2 g/dL (13.0-17.5) Hematocrit 22.8 % (39.0-53.0) Mean Corpuscular Volume 91 fL (79-100) Mean Corpuscular Hemoglobin 32 pg (25-35) Mean Corpuscular Hemoglobin Concent 36 g/dL (31-37) Red Cell Distribution Width 13.7 % (11.5-14.5) Platelet Count 130 x10^3/uL (140-400) Neutrophils (%) (Auto) 75 % (31-73) Lymphocytes (%) (Auto) 13 % (24-48) Monocytes (%) (Auto) 11 % (0-9) Eosinophils (%) (Auto) 1 % (0-3) Basophils (%) (Auto) 0 % (0-3) Neutrophils # (Auto) 7.4 x10^3uL (1.8-7.7) Lymphocytes # (Auto) 1.3 x10^3/uL (1.0-4.8) Monocytes # (Auto) 1.1 x10^3/uL (0.0-1.1) Eosinophils # (Auto) 0.1 x10^3/uL (0.0-0.7) Basophils # (Auto) 0.0 x10^3/uL (0.0-0.2) Sodium Level 130 mmol/L (136-145) Potassium Level 4.2 mmol/L (3.5-5.1) Chloride Level 97 mmol/L (98-107) Carbon Dioxide Level 27 mmol/L (21-32) Anion Gap 6 (6-14) Blood Urea Nitrogen 22 mg/dL (8-26) Creatinine 0.8 mg/dL (0.7-1.3) Estimated GFR (Cockcroft-Gault) 93.5 Glucose Level 200 mg/dL (70-99) Calcium Level 8.5 mg/dL (8.5-10.1) Test 01/01/17 11:59 Glucose (Fingerstick) 268 mg/dL (70-99) Review of Systems Review of Systems dyspnea improving pain improving Assessment and Plan Assessmemt and Plan NSTEMI s/p CABGx3 Accelerated HTN Thrombocytopenia - improving HLD DM 1. Continue oral amiodarone for afib ppx 2. Continue ASA, b-ilya, statin per cardiology 3. Recheck labs in am, monitor platelets and Hgb 4. DM: continue ISS, hold oral antihyperglycemics 5. Continue wound care 6. PT/OT 7. Hope to DC POD #4 Problems: Comment Review of Relevant I have reviewed the following items florence (where applicable) has been applied. Labs Laboratory Tests Test 12/30/16 17:47 12/30/16 21:17 12/31/16 06:15 12/31/16 12:55 Glucose (Fingerstick) 247 mg/dL (70-99) 227 mg/dL (70-99) 289 mg/dL (70-99) White Blood Count 11.4 x10^3/uL (4.0-11.0) Red Blood Count 3.11 x10^6/uL (4.30-5.70) Hemoglobin 10.0 g/dL (13.0-17.5) Hematocrit 28.7 % (39.0-53.0) Mean Corpuscular Volume 92 fL (79-100) Mean Corpuscular Hemoglobin 32 pg (25-35) Mean Corpuscular Hemoglobin Concent 35 g/dL (31-37) Red Cell Distribution Width 13.4 % (11.5-14.5) Platelet Count 108 x10^3/uL (140-400) Neutrophils (%) (Auto) 84 % (31-73) Lymphocytes (%) (Auto) 8 % (24-48) Monocytes (%) (Auto) 8 % (0-9) Eosinophils (%) (Auto) 0 % (0-3) Basophils (%) (Auto) 0 % (0-3) Neutrophils # (Auto) 9.6 x10^3uL (1.8-7.7) Lymphocytes # (Auto) 0.9 x10^3/uL (1.0-4.8) Monocytes # (Auto) 0.9 x10^3/uL (0.0-1.1) Eosinophils # (Auto) 0.0 x10^3/uL (0.0-0.7) Basophils # (Auto) 0.0 x10^3/uL (0.0-0.2) Sodium Level 131 mmol/L (136-145) Potassium Level 4.2 mmol/L (3.5-5.1) Chloride Level 98 mmol/L (98-107) Carbon Dioxide Level 26 mmol/L (21-32) Anion Gap 7 (6-14) Blood Urea Nitrogen 17 mg/dL (8-26) Creatinine 0.7 mg/dL (0.7-1.3) Estimated GFR (Cockcroft-Gault) 109.1 BUN/Creatinine Ratio 24 (6-20) Glucose Level 236 mg/dL (70-99) Calcium Level 9.1 mg/dL (8.5-10.1) Magnesium Level 1.7 mg/dL (1.8-2.4) Total Bilirubin 0.7 mg/dL (0.2-1.0) Aspartate Amino Transf (AST/SGOT) 45 U/L (15-37) Alanine Aminotransferase (ALT/SGPT) 41 U/L (16-63) Alkaline Phosphatase 49 U/L (46-116) Total Protein 6.2 g/dL (6.4-8.2) Albumin 3.1 g/dL (3.4-5.0) Albumin/Globulin Ratio 1.0 (1.0-1.7) Test 12/31/16 16:32 12/31/16 21:15 01/01/17 04:30 01/01/17 07:19 Glucose (Fingerstick) 344 mg/dL (70-99) 281 mg/dL (70-99) 231 mg/dL (70-99) White Blood Count 9.9 x10^3/uL (4.0-11.0) Red Blood Count 2.52 x10^6/uL (4.30-5.70) Hemoglobin 8.2 g/dL (13.0-17.5) Hematocrit 22.8 % (39.0-53.0) Mean Corpuscular Volume 91 fL (79-100) Mean Corpuscular Hemoglobin 32 pg (25-35) Mean Corpuscular Hemoglobin Concent 36 g/dL (31-37) Red Cell Distribution Width 13.7 % (11.5-14.5) Platelet Count 130 x10^3/uL (140-400) Neutrophils (%) (Auto) 75 % (31-73) Lymphocytes (%) (Auto) 13 % (24-48) Monocytes (%) (Auto) 11 % (0-9) Eosinophils (%) (Auto) 1 % (0-3) Basophils (%) (Auto) 0 % (0-3) Neutrophils # (Auto) 7.4 x10^3uL (1.8-7.7) Lymphocytes # (Auto) 1.3 x10^3/uL (1.0-4.8) Monocytes # (Auto) 1.1 x10^3/uL (0.0-1.1) Eosinophils # (Auto) 0.1 x10^3/uL (0.0-0.7) Basophils # (Auto) 0.0 x10^3/uL (0.0-0.2) Sodium Level 130 mmol/L (136-145) Potassium Level 4.2 mmol/L (3.5-5.1) Chloride Level 97 mmol/L (98-107) Carbon Dioxide Level 27 mmol/L (21-32) Anion Gap 6 (6-14) Blood Urea Nitrogen 22 mg/dL (8-26) Creatinine 0.8 mg/dL (0.7-1.3) Estimated GFR (Cockcroft-Gault) 93.5 Glucose Level 200 mg/dL (70-99) Calcium Level 8.5 mg/dL (8.5-10.1) Test 01/01/17 11:59 Glucose (Fingerstick) 268 mg/dL (70-99) Laboratory Tests Test 12/31/16 16:32 12/31/16 21:15 01/01/17 04:30 01/01/17 07:19 Glucose (Fingerstick) 344 mg/dL (70-99) 281 mg/dL (70-99) 231 mg/dL (70-99) White Blood Count 9.9 x10^3/uL (4.0-11.0) Red Blood Count 2.52 x10^6/uL (4.30-5.70) Hemoglobin 8.2 g/dL (13.0-17.5) Hematocrit 22.8 % (39.0-53.0) Mean Corpuscular Volume 91 fL (79-100) Mean Corpuscular Hemoglobin 32 pg (25-35) Mean Corpuscular Hemoglobin Concent 36 g/dL (31-37) Red Cell Distribution Width 13.7 % (11.5-14.5) Platelet Count 130 x10^3/uL (140-400) Neutrophils (%) (Auto) 75 % (31-73) Lymphocytes (%) (Auto) 13 % (24-48) Monocytes (%) (Auto) 11 % (0-9) Eosinophils (%) (Auto) 1 % (0-3) Basophils (%) (Auto) 0 % (0-3) Neutrophils # (Auto) 7.4 x10^3uL (1.8-7.7) Lymphocytes # (Auto) 1.3 x10^3/uL (1.0-4.8) Monocytes # (Auto) 1.1 x10^3/uL (0.0-1.1) Eosinophils # (Auto) 0.1 x10^3/uL (0.0-0.7) Basophils # (Auto) 0.0 x10^3/uL (0.0-0.2) Sodium Level 130 mmol/L (136-145) Potassium Level 4.2 mmol/L (3.5-5.1) Chloride Level 97 mmol/L (98-107) Carbon Dioxide Level 27 mmol/L (21-32) Anion Gap 6 (6-14) Blood Urea Nitrogen 22 mg/dL (8-26) Creatinine 0.8 mg/dL (0.7-1.3) Estimated GFR (Cockcroft-Gault) 93.5 Glucose Level 200 mg/dL (70-99) Calcium Level 8.5 mg/dL (8.5-10.1) Test 01/01/17 11:59 Glucose (Fingerstick) 268 mg/dL (70-99) Medications Current Medications Sodium Chloride 1,000 ml @ 100 mls/hr Q10H IV Last administered on 12/26/16 11:46; Start 12/26/16 at 11:30; Stop 12/26/16 at 21:29; Status DC Aspirin (Children'S Aspirin) 324 mg 1X ONCE PO Last administered on 12/26/16 11:46; Start 12/26/16 at 11:30; Stop 12/26/16 at 11:31; Status DC Heparin Sodium (Porcine) (Heparin Sodium) 4,000 unit 1X ONCE IV Last administered on 12/26/16 14:02; Start 12/26/16 at 13:30; Stop 12/26/16 at 13:31 ; Status DC Heparin Sodium/ Dextrose 500 ml @ 0 mls/hr CONT PRN IV SEE I/O RECORD Last administered on 12/27/16 21:02; Start 12/26/16 at 13:15; Stop 12/28/16 at 23:55 ; Status DC Info (Anti-Coagulation Monitoring By Pharmacy) 1 each PRN DAILY PRN MC SEE COMMENTS Last administered on 12/28/16 09:02; Start 12/26/16 at 13:30; Stop at 14:10; Status DC Hydralazine HCl (Apresoline) 10 mg PRN Q4HRS PRN IVP ELEVATED BP, SEE COMMENTS Last administered on 12/31/16 06:14; Start 12/26/16 at 15:30 Aspirin (Ecotrin) 81 mg DAILY PO Last administered on 12/28/16 09:03; Start at 09:00; Stop 12/28/16 at 13:18; Status DC Dutasteride (Avodart) 0.5 mg QHS PO Last administered on 12/31/16 21:00; Start 12/26/16 at 21:00 Metformin HCl (Glucophage) 1,000 mg BIDWMEALS PO ; Start 12/26/16 at 20:00; Stop 12/27/16 at 12:02; Status DC Tamsulosin HCl (Flomax) 0.8 mg QHS PO Last administered on 12/31/16 21:00; Start 12/26/16 at 21:00 Glipizide (Glucotrol) 10 mg BIDBFRMEAL PO ; Start 12/27/16 at 07:30; Stop at 16:39; Status DC Hydrochlorothiazide (Hydrodiuril) 25 mg DAILY PO ; Start 12/27/16 at 09:00; Stop 12/27/16 at 12:02; Status DC Meloxicam (Mobic) 15 mg DAILY PO Last administered on 12/27/16 13:38; Start at 09:00; Stop 12/27/16 at 13:50; Status DC Multivitamins (Thera M Plus) 1 tab QHS PO Last administered on 12/27/16 21:13 ; Start 12/26/16 at 21:00; Stop 12/28/16 at 13:18; Status DC Pantoprazole Sodium (Protonix) 40 mg DAILYAC PO Last administered on 12/28/16 09:02; Start 12/27/16 at 07:30; Stop 12/28/16 at 13:18; Status DC Atorvastatin Calcium (Lipitor) 5 mg QHS PO Last administered on 12/28/16 21:20 ; Start 12/26/16 at 21:00; Stop 12/29/16 at 15:15; Status DC Non-Formulary Medication 450 mg QHS PO ; Start 12/26/16 at 21:00; Stop 12/26/16 at 21:00; Status DC Losartan Potassium (Cozaar) 100 mg DAILY PO Last administered on 12/27/16 09: 53; Start 12/27/16 at 09:00; Stop 12/27/16 at 13:50; Status DC Verapamil HCl (Calan Sr) 180 mg QHS PO Last administered on 12/28/16 21:20; Start 12/26/16 at 21:00; Stop 12/30/16 at 12:18; Status DC Hydrochlorothiazide (Hydrodiuril) 25 mg DAILY PO Last administered on 09:03; Start 12/27/16 at 09:00; Stop 12/28/16 at 11:51; Status DC Iohexol (Omnipaque 300 Mg/ml) 100 ml STK-MED ONCE .ROUTE ; Start 12/27/16 at 11: 07; Stop 12/27/16 at 11:08; Status DC Heparin Sodium/ Sodium Chloride 1,000 ml @ As Directed STK-MED ONCE .ROUTE ; Start 12/27/16 at 11:07; Stop 12/27/16 at 11:08; Status DC Lidocaine HCl 20 ml STK-MED ONCE .ROUTE ; Start 12/27/16 at 11:07; Stop at 11:08; Status DC Verapamil HCl (Verapamil) 5 mg STK-MED ONCE .ROUTE ; Start 12/27/16 at 11:28; Stop 12/27/16 at 11:29; Status DC Heparin Sodium (Porcine) (Heparin Sodium) 10,000 unit STK-MED ONCE .ROUTE ; Start 12/27/16 at 11:28; Stop 12/27/16 at 11:29; Status DC Fentanyl Citrate (Fentanyl 2ml Vial) 100 mcg STK-MED ONCE .ROUTE ; Start at 11:28; Stop 12/27/16 at 11:29; Status DC Midazolam HCl (Versed) 2 mg STK-MED ONCE .ROUTE ; Start 12/27/16 at 11:28; Stop 12/27/16 at 11:29; Status DC Nitroglycerin (Nitroglycerin) 200 mcg STK-MED ONCE .ROUTE ; Start 12/27/16 at 11 :30; Stop 12/27/16 at 11:31; Status DC Nitroglycerin (Nitroglycerin) 200 mcg 1X ONCE IART Last administered on 12:02; Start 12/27/16 at 12:00; Stop 12/27/16 at 12:01; Status DC Verapamil HCl (Verapamil) 2.5 mg 1X ONCE IART Last administered on 12/27/16 12:03; Start 12/27/16 at 12:00; Stop 12/27/16 at 12:01; Status DC Heparin Sodium (Porcine) (Heparin Sodium) 2,500 unit 1X ONCE IART Last administered on 12/27/16 12:00; Start 12/27/16 at 12:00; Stop 12/27/16 at 12:01 ; Status DC Heparin Sodium/ Sodium Chloride 1,000 unit 1X ONCE IART Last administered on 12:02; Start 12/27/16 at 12:00; Stop 12/27/16 at 12:01; Status DC Midazolam HCl (Versed) 2 mg 1X ONCE IV Last administered on 12/27/16 12:05; Start 12/27/16 at 12:00; Stop 12/27/16 at 12:01; Status DC Fentanyl Citrate (Fentanyl 2ml Vial) 100 mcg 1X ONCE IV Last administered on 12:04; Start 12/27/16 at 12:00; Stop 12/27/16 at 12:01; Status DC Iohexol (Omnipaque 300 Mg/ml) 100 ml 1X ONCE IART Last administered on 12:00; Start 12/27/16 at 12:00; Stop 12/27/16 at 12:01; Status DC Lidocaine HCl 20 ml 1X ONCE IJ Last administered on 12/27/16 12:03; Start at 12:00; Stop 12/27/16 at 12:01; Status DC Heparin Sodium (Porcine) (Heparin Sodium) 3,000 unit 1X ONCE IV Last administered on 12/27/16 12:00; Start 12/27/16 at 12:00; Stop 12/27/16 at 12:02 ; Status DC Metformin HCl (Glucophage) 1,000 mg BIDWMEALS PO ; Start 12/29/16 at 17:00; Stop 12/29/16 at 17:00; Status DC Info (Do NOT chart on this entry -- for MONITORING) 1 each PRN DAILY PRN MC SEE COMMENTS; Start 12/27/16 at 12:15; Stop 12/29/16 at 12:14; Status DC Metoprolol Tartrate (Lopressor) 25 mg 1X ONCE PO ; Start 12/29/16 at 06:00; Stop 12/29/16 at 06:00; Status DC Cefazolin Sodium 1 gm/Sodium Chloride 50 ml @ 100 mls/hr 1X ONCE IV ; Start at 06:00; Stop 12/29/16 at 06:29; Status DC Insulin Detemir (Levemir) 10 units QHS SQ Last administered on 12/31/16 21:21; Start 12/27/16 at 21:00 Insulin Aspart (NovoLOG) 0-9 UNITS TIDWMEALS SQ Last administered on 01/01/17 13:09; Start 12/27/16 at 17:00 Dextrose (Dextrose 50%-Water Syringe) 12.5 gm PRN Q15MIN PRN IV SEE COMMENTS; Start 12/27/16 at 16:45; Status Cancel Metoprolol Tartrate (Lopressor) 25 mg BID PO Last administered on 12/28/16 21: 21; Start 12/27/16 at 21:00; Stop 12/28/16 at 23:00; Status DC Cefazolin Sodium 1 gm/Sodium Chloride 500 ml @ 500 mls/hr 1X PERIOP ONCE IRR Last administered on 12/29/16 08:45; Start 12/29/16 at 06:00; Stop 12/29/16 at 06:59; Status DC Potassium Chloride 70 meq/ Sodium Bicarbonate 12.5 meq/Lidocaine HCl 24 ml/ Parenteral Electrolytes 571.5 ml @ 571.5 mls/ hr 1X PERIOP ONCE IRR Last administered on 12/29/16 10:31; Start 12/29/16 at 06:00; Stop 12/29/16 at 06:59 ; Status DC Potassium Chloride 15 meq/ Sodium Bicarbonate 12.5 meq/Parenteral Electrolytes 520 ml @ 520 mls/hr 1X PERIOP ONCE IRR Last administered on 12/29/16 10:31; Start 12/29/16 at 06:00; Stop 12/29/16 at 06:59; Status DC Heparin Sodium (Porcine) 96474 unit/Ringer's Solution 1,020 ml @ 1,020 mls/hr 1X PERIOP ONCE IRR Last administered on 12/29/16 08:45; Start 12/29/16 at 06: 00; Stop 12/29/16 at 06:59; Status DC Ondansetron HCl (Zofran) 4 mg PRN Q6HRS PRN IV NAUSEA/VOMITING; Start 12/29/16 at 07:00; Stop 12/30/16 at 06:59; Status DC Fentanyl Citrate (Fentanyl 2ml Vial) 25 mcg PRN Q5MIN PRN IV MILD PAIN; Start 12/29/16 at 07:00; Stop 12/30/16 at 06:59; Status DC Fentanyl Citrate (Fentanyl 2ml Vial) 50 mcg PRN Q5MIN PRN IV MODERATE PAIN; Start 12/29/16 at 07:00; Stop 12/30/16 at 06:59; Status DC Morphine Sulfate 1 mg PRN Q10MIN PRN IV SEVERE PAIN; Start 12/29/16 at 07:00; Stop 12/30/16 at 06:59; Status DC Ringer's Solution 1,000 ml @ 30 mls/hr Q24H IV Last administered on 12/29/16t 07:00; Start 12/29/16 at 07:00; Stop 12/29/16 at 18:59; Status DC Lidocaine HCl 2 ml PRN 1X PRN ID PRIOR TO IV START; Start 12/29/16 at 07:00; Stop 12/30/16 at 06:59; Status DC Hydromorphone HCl (Dilaudid) 0.5 mg PRN Q10MIN PRN IV SEV PAIN, Second choice; Start 12/29/16 at 07:00; Stop 12/30/16 at 06:59; Status DC Prochlorperazine Edisylate (Compazine) 5 mg PACU PRN PRN IV NAUSEA, MRX1; Start 12/29/16 at 07:00; Stop 12/30/16 at 06:59; Status DC Aminocaproic Acid (Amicar) 5,000 mg STK-MED ONCE IV ; Start 12/29/16 at 05:49; Stop 12/29/16 at 05:50; Status DC Aminocaproic Acid (Amicar) 5,000 mg STK-MED ONCE IV ; Start 12/29/16 at 05:49; Stop 12/29/16 at 05:50; Status DC Aminocaproic Acid (Amicar) 5,000 mg STK-MED ONCE IV ; Start 12/29/16 at 05:49; Stop 12/29/16 at 05:50; Status DC Isoflurane (Isoflurane) 90 ml STK-MED ONCE IH ; Start 12/29/16 at 05:50; Stop at 05:51; Status DC Midazolam HCl (Versed) 5 mg STK-MED ONCE .ROUTE ; Start 12/29/16 at 05:58; Stop 12/29/16 at 05:59; Status DC Rocuronium [place] (Zemuron) 100 mg STK-MED ONCE .ROUTE ; Start 12/29/16 at 05: 58; Stop 12/29/16 at 05:59; Status DC Sufentanil Citrate (Sufenta) 100 mcg STK-MED ONCE .ROUTE ; Start 12/29/16 at 05: 59; Stop 12/29/16 at 06:00; Status DC Etomidate (Amidate) 20 mg STK-MED ONCE IV ; Start 12/29/16 at 05:59; Stop at 06:00; Status DC Heparin Sodium (Porcine) (Heparin Sodium) 10,000 unit STK-MED ONCE .ROUTE ; Start 12/29/16 at 05:59; Stop 12/29/16 at 06:00; Status DC Heparin Sodium (Porcine) (Heparin Sodium) 10,000 unit STK-MED ONCE .ROUTE ; Start 12/29/16 at 05:59; Stop 12/29/16 at 06:00; Status DC Heparin Sodium (Porcine) (Heparin Sodium) 10,000 unit STK-MED ONCE .ROUTE ; Start 12/29/16 at 05:59; Stop 12/29/16 at 06:00; Status DC Phenylephrine HCl (Cristian-Synephrine Inj) 10 mg STK-MED ONCE .ROUTE ; Start at 05:59; Stop 12/29/16 at 06:00; Status DC Phenylephrine HCl (Cristian-Synephrine Inj) 10 mg STK-MED ONCE .ROUTE ; Start at 05:59; Stop 12/29/16 at 06:00; Status DC Phenylephrine HCl (Cristian-Synephrine Inj) 10 mg STK-MED ONCE .ROUTE ; Start at 05:59; Stop 12/29/16 at 06:00; Status DC Nicardipine HCl (Cardene) 25 mg STK-MED ONCE IV ; Start 12/29/16 at 05:59; Stop 12/29/16 at 06:00; Status DC Lidocaine HCl (Lidocaine Pf 2% Vial) 5 ml STK-MED ONCE .ROUTE ; Start 12/29/16 at 06:00; Stop 12/29/16 at 06:01; Status DC Epinephrine HCl (EPINEPHrine SYRINGE) 1 mg STK-MED ONCE .ROUTE ; Start 12/29/16 at 06:00; Stop 12/29/16 at 06:01; Status DC Cefazolin Sodium 50 ml @ As Directed STK-MED ONCE IV ; Start 12/29/16 at 06:39; Stop 12/29/16 at 06:40; Status DC Cefazolin Sodium/ Dextrose 50 ml @ As Directed STK-MED ONCE IV ; Start 12/29/16 at 06:41; Stop 12/29/16 at 06:42; Status DC Cefazolin Sodium/ Dextrose 50 ml @ 100 mls/hr 1X ONCE IV Last administered on 12/29/16 08:25; Start 12/29/16 at 07:00; Stop 12/29/16 at 07:29; Status DC Cellulose 1 each STK-MED ONCE .ROUTE Last administered on 12/29/16 08:45; Start 12/29/16 at 06:53; Stop 12/29/16 at 06:54; Status DC Vancomycin HCl (Vanco) 10 gm STK-MED ONCE .ROUTE ; Start 12/29/16 at 06:53; Stop 12/29/16 at 06:54; Status DC Papaverine HCl 60 mg STK-MED ONCE .ROUTE Last administered on 12/29/16 08:45; Start 12/29/16 at 06:53; Stop 12/29/16 at 06:54; Status DC Aspirin (Aspirin) 300 mg STK-MED ONCE .ROUTE Last administered on 12/29/16 13: 38; Start 12/29/16 at 06:53; Stop 12/29/16 at 06:54; Status DC Sodium Chloride (Sodium Chloride) 50 ml STK-MED ONCE IJ Last administered on 08:45; Start 12/29/16 at 06:53; Stop 12/29/16 at 06:54; Status DC Vancomycin HCl (Vanco) 10 gm STK-MED ONCE .ROUTE ; Start 12/29/16 at 06:55; Stop 12/29/16 at 06:56; Status DC Succinylcholine Chloride (Anectine) 200 mg STK-MED ONCE .ROUTE ; Start 12/29/16 at 06:55; Stop 12/29/16 at 06:56; Status DC Vancomycin HCl (Vanco) 10 gm STK-MED ONCE .ROUTE Last administered on 08:45; Start 12/29/16 at 06:57; Stop 12/29/16 at 06:58; Status DC Sufentanil Citrate (Sufenta) 100 mcg STK-MED ONCE .ROUTE ; Start 12/29/16 at 08: 53; Stop 12/29/16 at 08:54; Status DC Norepinephrine Bitartrate 250 ml @ 1.875 mls/ hr 1X ONCE IV Last administered on 12/29/16 15:26; Start 12/29/16 at 09:30; Stop 01/01/17 at 10:52 ; Status DC Rocuronium [place] (Zemuron) 100 mg STK-MED ONCE .ROUTE ; Start 12/29/16 at 10: 34; Stop 12/29/16 at 10:35; Status DC Insulin Human Regular 150 unit/ Sodium Chloride 151.5 ml @ 0 mls/hr PRN 1X PRN IV . Last administered on 12/29/16 15:20; Start 12/29/16 at 11:30; Stop 12/30/16 at 08:02; Status DC Protamine Sulfate 250 mg STK-MED ONCE IV ; Start 12/29/16 at 11:43; Stop at 11:44; Status DC Protamine Sulfate 50 mg STK-MED ONCE IV ; Start 12/29/16 at 11:43; Stop at 11:44; Status DC Protamine Sulfate 50 mg STK-MED ONCE IV ; Start 12/29/16 at 12:33; Stop at 12:34; Status DC Protamine Sulfate 50 mg STK-MED ONCE IV ; Start 12/29/16 at 12:46; Stop at 12:47; Status DC Magnesium Sulfate 5 gm STK-MED ONCE .ROUTE ; Start 12/29/16 at 12:51; Stop 12/29 at 12:52; Status DC Heparin Sodium (Porcine) 30,000 unit STK-MED ONCE .ROUTE ; Start 12/29/16 at 12: 51; Stop 12/29/16 at 12:52; Status DC Lidocaine HCl (Lidocaine Pf 2% Vial) 5 ml STK-MED ONCE .ROUTE ; Start 12/29/16 at 12:51; Stop 12/29/16 at 12:52; Status DC Mannitol (Mannitol) 12.5 g STK-MED ONCE .ROUTE ; Start 12/29/16 at 12:51; Stop 12/29/16 at 12:52; Status DC Calcium Chloride 1,000 mg STK-MED ONCE IV ; Start 12/29/16 at 12:51; Stop at 12:52; Status DC Sodium Bicarbonate 50 meq STK-MED ONCE .ROUTE ; Start 12/29/16 at 12:51; Stop at 12:52; Status DC Albumin Human 200 ml @ As Directed STK-MED ONCE IV ; Start 12/29/16 at 12:51; Stop 12/29/16 at 12:52; Status DC Clevidipine 100 ml @ 0 mls/hr CONT PRN IV PER PROTOCOL Last administered on 15:59; Start 12/29/16 at 13:15; Stop 01/01/17 at 10:52; Status DC Sodium Chloride (Normal Saline Flush) 3 ml PRN Q12HR PRN IV AFTER MEDS AND BLOOD DRAWS; Start 12/29/16 at 13:30 Ringer's Solution 1,000 ml @ 30 mls/hr Q24H IV Last administered on 12/29/16 16:23; Start 12/29/16 at 13:20 Albumin Human 250 ml @ 60 mls/hr PRN Q4HRS PRN IV SEE I/O RECORD Last administered on 12/29/16 15:21; Start 12/29/16 at 13:30 Insulin Human Regular 150 unit/ Sodium Chloride 151.5 ml @ 0 mls/hr CONT PRN PRN IV SEE I/O RECORD; Start 12/29/16 at 13:30 Dextrose (Dextrose 50%-Water Syringe) 25 gm PRN Q15MIN PRN IV LOW BLOOD SUGAR; Start 12/29/16 at 13:30 Amiodarone HCl 150 mg/Dextrose 103 ml @ 200 mls/hr 1X PRN IV ; Start 12/29/16 at 14:30; Stop 01/01/17 at 10:52; Status DC Amiodarone HCl 900 mg/Dextrose 518 ml @ 33.33 mls/ hr STAT IV ; Start 12/29/16 at 13:30; Stop 12/29/16 at 13:55; Status DC Info 1 ea CONT PRN PRN MC SEE COMMENTS; Start 12/29/16 at 13:30 Info 1 ea CONT PRN PRN MC SEE COMMENTS; Start 12/29/16 at 13:30; Stop 01/01/17 at 10:51; Status DC Magnesium Sulfate/ Dextrose 100 ml @ 100 mls/hr PRN DAILY PRN IV FOR MAG < 2.2 Last administered on 12/30/16 09:02; Start 12/29/16 at 13:30 Famotidine (Pepcid) 20 mg BID IVP Last administered on 12/30/16 21:13; Start at 21:00; Stop 12/31/16 at 07:18; Status DC Ondansetron HCl (Zofran) 4 mg PRN Q4HRS PRN IV NAUSEA/VOMITING; Start 12/29/16 at 13:30 Morphine Sulfate 2 mg PRN Q1HR PRN IV PAIN Last administered on 12/30/16 14:59 ; Start 12/29/16 at 13:30 Acetaminophen (Tylenol) 650 mg PRN Q4HRS PRN PO MILD PAIN / TEMP; Start at 13:30 Meperidine HCl (Demerol) 12.5 mg PRN Q15MIN PRN IV SHIVERING Last administered on 12/29/16 16:19; Start 12/29/16 at 13:30; Stop 12/30/16 at 13:20; Status DC Propofol 100 ml @ 0 mls/hr CONT PRN PRN IV POSTOP SEDATION UNTIL EXTUBATE; Start 12/29/16 at 13:30; Stop 01/01/17 at 10:39; Status DC Senna/Docusate Sodium (Senna Plus) 1 tab BID PO Last administered on 01/01/17 08:46; Start 12/30/16 at 09:00 Bisacodyl (Dulcolax Supp) 10 mg PRN DAILY PRN OH NO BOWEL MOVEMENT; Start 12/29 at 13:30 Aspirin (Ecotrin) 325 mg DAILYWBKFT PO Last administered on 01/01/17 08:46; Start 12/30/16 at 08:00 Aspirin (Aspirin) 300 mg PRN DAILY PRN OH IF UNABLE TO TAKE PO; Start 12/29/16 at 13:30 Albuterol Sulfate (Ventolin Neb Soln) 2.5 mg PRN Q4HRS PRN NEB SHORTNESS OF BREATH; Start 12/29/16 at 13:30 Metoprolol Tartrate (Lopressor) 25 mg BID PO Last administered on 01/01/17 10: 01; Start 12/30/16 at 09:00; Stop 01/01/17 at 11:18; Status DC Oxycodone/ Acetaminophen (Percocet 5/325) 1 tab PRN Q4HRS PRN PO MILD PAIN Last administered on 01/01/17 06:46; Start 12/29/16 at 13:30 Oxycodone/ Acetaminophen (Percocet 5/325) 2 tab PRN Q4HRS PRN PO MODERATE PAIN , SEVERE PAIN; Start 12/29/16 at 13:30 Cefazolin Sodium 1 gm/Sodium Chloride 50 ml @ 100 mls/hr Q8H IV ; Start at 14:00; Stop 12/29/16 at 16:22; Status DC Polyethylene Glycol (miraLAX PACKET) 17 gm HS PO Last administered on 12/31/16 21:00; Start 12/30/16 at 21:00 Amiodarone HCl 900 mg/Dextrose 518 ml @ 33.33 mls/ hr CONT PRN IV ; Start at 14:00; Stop 01/01/17 at 10:52; Status DC Atorvastatin Calcium (Lipitor) 20 mg QHS PO Last administered on 12/31/16 21:00 ; Start 12/29/16 at 21:00 Potassium Chloride 50 ml @ 50 mls/hr Q1H IV Last administered on 12/29/16 16: 20; Start 12/29/16 at 15:30; Stop 12/29/16 at 17:29; Status DC Magnesium Sulfate/ Dextrose 100 ml @ 100 mls/hr 1X ONCE IV Last administered on 12/29/16 16:19; Start 12/29/16 at 15:30; Stop 12/29/16 at 16:29; Status DC Cefazolin Sodium 1 gm/Sodium Chloride 50 ml @ 100 mls/hr Q8H IV Last administered on 12/30/16 21:00; Start 12/29/16 at 20:00; Stop 12/30/16 at 20:01; Status DC Potassium Chloride 50 ml @ 50 mls/hr 1X ONCE IV Last administered on 20:58; Start 12/29/16 at 20:45; Stop 12/29/16 at 21:44; Status DC Furosemide (Lasix) 40 mg 1X ONCE IVP Last administered on 12/30/16 01:43; Start 12/30/16 at 02:00; Stop 12/30/16 at 02:01; Status DC Potassium Chloride 50 ml @ 50 mls/hr Q1H IV Last administered on 12/30/16 12:21 ; Start 12/30/16 at 07:15; Stop 12/30/16 at 10:14; Status DC Amiodarone HCl (Cordarone) 400 mg BID PO Last administered on 01/01/17 08:46; Start 12/30/16 at 13:00 Potassium Chloride 50 ml @ 50 mls/hr 1X ONCE IV Last administered on 12/31/16 08:23; Start 12/31/16 at 08:00; Stop 12/31/16 at 08:59; Status DC Famotidine (Pepcid) 20 mg BID PO Last administered on 01/01/17 08:46; Start 12/31/16 at 09:00 Magnesium Sulfate/ Dextrose 100 ml @ 100 mls/hr 1X ONCE IV Last administered on 12/31/16 10:17; Start 12/31/16 at 08:30; Stop 12/31/16 at 09:29; Status DC Docusate Sodium (Colace) 100 mg DAILY PO Last administered on 01/01/17 08:46; Start 12/31/16 at 21:00 Metoprolol Tartrate (Lopressor) 50 mg BID PO ; Start 01/01/17 at 21:00 Active Scripts Active Reported [place] ([place] Fruit) 450 Mg Capsule 450 Mg PO QHS Tamsulosin Hcl 0.4 Mg Cap.er.24h 2 Cap PO QHS Verapamil Sr (Verapamil HCl) 180 Mg Cap24h.pel 180 Mg PO QHS Avodart (Dutasteride) 0.5 Mg Capsule 1 Cap PO QHS Multivitamins (Multivitamin) 1 Each Tablet 1 Tab PO QHS Aspir 81 (Aspirin) 81 Mg Tablet.dr 1 Tab PO DAILY Meloxicam 15 Mg Tablet 1 Tab PO DAILY Hydrochlorothiazide Tablet (Hydrochlorothiazide) 50 Mg Tablet 0.5 Tab PO DAILY Pravastatin Sodium 20 Mg Tablet 1 Tab PO DAILY Omeprazole 20 Mg Capsule.dr 1 Cap PO DAILY Glipizide 10 Mg Tablet 1 Tab PO BID Metformin Hcl 1,000 Mg Tablet 1,000 Mg PO BID Diovan Hct 320-25 Mg Tablet (Valsartan/Hydrochlorothiazide) 1 Each Tablet 1 Tab PO DAILY Vitals/I & O Vital Sign - Last 24 Hours 12/31/16 12/31/16 12/31/16 12/31/16 17:09 19:00 20:00 21:00 Temp 99.3 99.3 Pulse 104 104 Resp 24 B/P (MAP) 138/58 (84) 138/58 Pulse Ox 95 94 O2 Delivery Room Air Room Air Room Air 12/31/16 12/31/16 12/31/16 01/01/17 21:23 21:24 23:00 03:00 Temp 98.5 98.8 98.5 98.5 98.8 98.5 Pulse 104 77 85 Resp 20 20 B/P (MAP) 138/58 131/73 (92) 127/68 (87) Pulse Ox 95 98 O2 Delivery Room Air Nasal Cannula O2 Flow Rate 2.0 01/01/17 01/01/17 01/01/17 01/01/17 06:46 07:00 07:51 08:05 Temp 98.9 98.9 Pulse 96 Resp 18 16 B/P (MAP) 123/64 (83) Pulse Ox 95 93 93 O2 Delivery Room Air Room Air Room Air Room Air O2 Flow Rate 2.0 01/01/17 01/01/17 01/01/17 01/01/17 08:46 10:01 11:00 12:03 Temp 98.3 98.3 Pulse 96 96 91 Resp 18 B/P (MAP) 123/64 123/64 116/66 (83) Pulse Ox 95 96 O2 Delivery Room Air Room Air 01/01/17 15:00 Temp 98.4 98.4 Pulse 86 Resp 16 B/P (MAP) 102/59 (73) Pulse Ox 95 O2 Delivery Room Air TIAN MONTERO III DO Jan 01, 2017 16:47
[2017-01-01 19:35] VITALS: BP 133/63
[2017-01-01] MEDS: ATORVASTATIN CALCIUM 20 MG TABLET PO SCH (20:41)
[2017-01-01] MEDS: DUTASTERIDE 0.5 MG CAPSULE PO SCH (20:42)
[2017-01-01] MEDS: TAMSULOSIN 0.4 MG CAP.ER.24H. PO SCH (20:45)
[2017-01-01] MEDS: POLYETHYLENE GLYCOL 3350 17 GM PACKET. PO SCH (20:46)
[2017-01-01] MEDS: INSULIN DETEMIR 300 UNITS/3 ML INSULN.PEN. SQ SCH (21:01)
[2017-01-01 23:10] VITALS: BP 107/60
[2017-01-02 03:45] VITALS: BP 139/70
[2017-01-02 04:51] LABS: BASO % 0 % (0-3); EOS % 2 % (0-3); HEMATOCRIT 22.5 % (39.0-53.0); HEMOGLOBIN 7.9 g/dL (13.0-17.5); LYMPH # 0.9 x10^3/uL (1.0-4.8); LYMPH % 11 % (24-48); MEAN CORPUSCULAR HEMOGLOBIN 32 pg (25-35); MEAN CORPUSCULAR HGB CONC 35 g/dL (31-37); MEAN CORPUSCULAR VOLUME 92 fL (79-100); MONO % 11 % (0-9); NEUT % 76 % (31-73); PLATELET COUNT 165 x10^3/uL (140-400); RED BLOOD COUNT 2.45 x10^6/uL (4.30-5.70); RED CELL DISTRIBUTION WIDTH 13.5 % (11.5-14.5); WHITE BLOOD COUNT 8.3 x10^3/uL (4.0-11.0)
[2017-01-02 05:02] LABS: CALCIUM 8.6 mg/dL (8.5-10.1); CREATININE 0.7 mg/dL (0.7-1.3); GFR 109.1; POTASSIUM 4.1 mmol/L (3.5-5.1)
[2017-01-02 07:37] VITALS: BP 134/68
[2017-01-02] MEDS: FAMOTIDINE 20 MG TABLET. PO SCH (09:01)
[2017-01-02] MEDS: AMIODARONE HCL 200 MG TABLET. PO SCH (09:02)
[2017-01-02] MEDS: ASPIRIN ENTERIC COATED 325 MG TABLET.DR. PO SCH (09:02)
[2017-01-02] MEDS: SENNOSIDES/DOCUSATE 8.6/50MG TABLET. PO SCH (09:02)
[2017-01-02] MEDS: METOPROLOL TART IMMED RELEASE 25 MG TABLET. PO SCH (09:03)
[2017-01-02] MEDS: DOCUSATE SODIUM 100 MG CAPSULE. PO SCH (09:03)
[2017-01-02] MEDS: INSULIN ASPART 300 UNITS/3 ML INSULN.PEN SQ SCH ×2 (09:14→12:50)
[2017-01-02 10:18] VITALS: BP 115/58
--- NOTE | 2017-01-02 11:55 | PDOC ---
PROGRESS NOTES Subjective Subjective Feeling better. Denied any dyspnea. Objective Objective Vital Signs Date Time Temp Pulse Resp B/P (MAP) Pulse Ox O2 Delivery O2 Flow Rate FiO2 01/02/17 10:18 98.6 78 19 115/58 (77) 96 Room Air 98.6 01/01/17 07:51 2.0 Intake and Output 01/03/17 07:00 Intake Total 240 ml Balance 240 ml Intake Oral 240 ml # Voids 1 # Bowel Movements 1 Physical Exam Abdomen: Normal bowel sounds, Soft, No tenderness Heart: Regular rate Extremities: No edema General: Alert, Oriented X3, Cooperative, No acute distress HEENT: Atraumatic, PERRLA Lungs: Clear to auscultation, Normal air movement MUSCULOSKELETAL: No deformity Neuro: Normal speech Psych/Mental Status: Mental status NL Skin: No significant lesion Assessment Assessment 1. Acute non-STEMI, 3-vessel CAD; s/p CABG x 3 with POTTS to LAD, SVG to distal RCA, and SVG to OM. POD #4. Doing very well post-operatively. Maintaining SR; possible discharge home today per CTScontinue PT/OT 2. Hypertension; controlled. continue BB. ARB on hold. 3. Hyperlipidemia; statin 4. Diabetes - per IM Comment Review of Relevant I have reviewed the following items [place] (where applicable) has been applied. Labs Laboratory Tests Test 01/01/17 11:59 01/01/17 17:15 01/01/17 20:47 01/02/17 03:36 Glucose (Fingerstick) 268 mg/dL (70-99) 128 mg/dL (70-99) 192 mg/dL (70-99) Sodium Level 131 mmol/L (136-145) Potassium Level 4.1 mmol/L (3.5-5.1) Chloride Level 97 mmol/L (98-107) Carbon Dioxide Level 25 mmol/L (21-32) Anion Gap 9 (6-14) Blood Urea Nitrogen 24 mg/dL (8-26) Creatinine 0.7 mg/dL (0.7-1.3) Estimated GFR (Cockcroft-Gault) 109.1 Glucose Level 198 mg/dL (70-99) Calcium Level 8.6 mg/dL (8.5-10.1) Test 01/02/17 03:56 01/02/17 07:39 White Blood Count 8.3 x10^3/uL (4.0-11.0) Red Blood Count 2.45 x10^6/uL (4.30-5.70) Hemoglobin 7.9 g/dL (13.0-17.5) Hematocrit 22.5 % (39.0-53.0) Mean Corpuscular Volume 92 fL (79-100) Mean Corpuscular Hemoglobin 32 pg (25-35) Mean Corpuscular Hemoglobin Concent 35 g/dL (31-37) Red Cell Distribution Width 13.5 % (11.5-14.5) Platelet Count 165 x10^3/uL (140-400) Neutrophils (%) (Auto) 76 % (31-73) Lymphocytes (%) (Auto) 11 % (24-48) Monocytes (%) (Auto) 11 % (0-9) Eosinophils (%) (Auto) 2 % (0-3) Basophils (%) (Auto) 0 % (0-3) Neutrophils # (Auto) 6.3 x10^3uL (1.8-7.7) Lymphocytes # (Auto) 0.9 x10^3/uL (1.0-4.8) Monocytes # (Auto) 0.9 x10^3/uL (0.0-1.1) Eosinophils # (Auto) 0.2 x10^3/uL (0.0-0.7) Basophils # (Auto) 0.0 x10^3/uL (0.0-0.2) Glucose (Fingerstick) 205 mg/dL (70-99) Medications Current Medications Metoprolol Tartrate (Lopressor) 50 mg BID PO Last administered on 01/02/17t 09: 03; Start 01/01/17 at 21:00 Vitals/I & O Vital Sign - Last 24 Hours 01/01/17 01/01/17 01/01/17 01/01/17 12:03 15:00 19:35 19:40 Temp 98.4 98.2 98.4 98.2 Pulse 86 93 Resp 16 18 B/P (MAP) 102/59 (73) 133/63 (86) Pulse Ox 96 95 94 O2 Delivery Room Air Room Air Room Air Room Air 01/01/17 01/01/17 01/01/17 01/01/17 20:43 20:44 20:46 21:46 Pulse 93 93 Resp 18 18 B/P (MAP) 133/63 133/63 Pulse Ox 94 93 O2 Delivery Room Air Room Air 01/01/17 01/02/17 01/02/17 01/02/17 23:10 03:45 07:37 09:02 Temp 98.1 97.9 98.3 98.1 97.9 98.3 Pulse 77 83 87 87 Resp 18 18 18 B/P (MAP) 107/60 (76) 139/70 (93) 134/68 (90) 134/68 Pulse Ox 93 94 96 O2 Delivery Room Air Room Air Room Air 01/02/17 01/02/17 09:03 10:18 Temp 98.6 98.6 Pulse 87 78 Resp 19 B/P (MAP) 134/68 115/58 (77) Pulse Ox 96 O2 Delivery Room Air Intake and Output 01/02/17 01/02/17 01/03/17 15:00 23:00 07:00 Intake Total 240 ml Balance 240 ml KYARA DRUMMOND MD Jan 02, 2017 11:55
[2017-01-02] MEDS ORDERED: ASPI325T11 PO (12:04)
[2017-01-02] MEDS ORDERED: ATOR20TA PO (12:04)
[2017-01-02] MEDS ORDERED: METO50TA2 PO (12:32)
--- NOTE | 2017-01-02 12:35 | PDOC3 ---
Discharge Summary Visit Information Date of Admission: Dec 26, 2016 Date of Discharge: Jan 02, 2017 Admitting Diagnosis Comment: NSTEMI Accelerated HTN: HLD Systolic murmur Diabetes s/pCABG POD # 4 Brief Hospital Course Allergies Allergies Coded Allergies Type Severity Reaction Last Updated Verified No Known Drug Allergies 12/29/16 No Vital Signs Vital Signs Date Time Temp Pulse Resp B/P (MAP) Pulse Ox O2 Delivery O2 Flow Rate FiO2 01/02/17 10:18 98.6 78 19 115/58 (77) 96 Room Air 98.6 01/01/17 07:51 2.0 Lab Results Laboratory Tests Test 12/31/16 12:55 12/31/16 16:32 12/31/16 21:15 01/01/17 04:30 Glucose (Fingerstick) 289 mg/dL (70-99) 344 mg/dL (70-99) 281 mg/dL (70-99) White Blood Count 9.9 x10^3/uL (4.0-11.0) Red Blood Count 2.52 x10^6/uL (4.30-5.70) Hemoglobin 8.2 g/dL (13.0-17.5) Hematocrit 22.8 % (39.0-53.0) Mean Corpuscular Volume 91 fL (79-100) Mean Corpuscular Hemoglobin 32 pg (25-35) Mean Corpuscular Hemoglobin Concent 36 g/dL (31-37) Red Cell Distribution Width 13.7 % (11.5-14.5) Platelet Count 130 x10^3/uL (140-400) Neutrophils (%) (Auto) 75 % (31-73) Lymphocytes (%) (Auto) 13 % (24-48) Monocytes (%) (Auto) 11 % (0-9) Eosinophils (%) (Auto) 1 % (0-3) Basophils (%) (Auto) 0 % (0-3) Neutrophils # (Auto) 7.4 x10^3uL (1.8-7.7) Lymphocytes # (Auto) 1.3 x10^3/uL (1.0-4.8) Monocytes # (Auto) 1.1 x10^3/uL (0.0-1.1) Eosinophils # (Auto) 0.1 x10^3/uL (0.0-0.7) Basophils # (Auto) 0.0 x10^3/uL (0.0-0.2) Sodium Level 130 mmol/L (136-145) Potassium Level 4.2 mmol/L (3.5-5.1) Chloride Level 97 mmol/L (98-107) Carbon Dioxide Level 27 mmol/L (21-32) Anion Gap 6 (6-14) Blood Urea Nitrogen 22 mg/dL (8-26) Creatinine 0.8 mg/dL (0.7-1.3) Estimated GFR (Cockcroft-Gault) 93.5 Glucose Level 200 mg/dL (70-99) Calcium Level 8.5 mg/dL (8.5-10.1) Test 01/01/17 07:19 01/01/17 11:59 01/01/17 17:15 01/01/17 20:47 Glucose (Fingerstick) 231 mg/dL (70-99) 268 mg/dL (70-99) 128 mg/dL (70-99) 192 mg/dL (70-99) Test 01/02/17 03:36 01/02/17 03:56 01/02/17 07:39 01/02/17 11:52 Sodium Level 131 mmol/L (136-145) Potassium Level 4.1 mmol/L (3.5-5.1) Chloride Level 97 mmol/L (98-107) Carbon Dioxide Level 25 mmol/L (21-32) Anion Gap 9 (6-14) Blood Urea Nitrogen 24 mg/dL (8-26) Creatinine 0.7 mg/dL (0.7-1.3) Estimated GFR (Cockcroft-Gault) 109.1 Glucose Level 198 mg/dL (70-99) Calcium Level 8.6 mg/dL (8.5-10.1) White Blood Count 8.3 x10^3/uL (4.0-11.0) Red Blood Count 2.45 x10^6/uL (4.30-5.70) Hemoglobin 7.9 g/dL (13.0-17.5) Hematocrit 22.5 % (39.0-53.0) Mean Corpuscular Volume 92 fL (79-100) Mean Corpuscular Hemoglobin 32 pg (25-35) Mean Corpuscular Hemoglobin Concent 35 g/dL (31-37) Red Cell Distribution Width 13.5 % (11.5-14.5) Platelet Count 165 x10^3/uL (140-400) Neutrophils (%) (Auto) 76 % (31-73) Lymphocytes (%) (Auto) 11 % (24-48) Monocytes (%) (Auto) 11 % (0-9) Eosinophils (%) (Auto) 2 % (0-3) Basophils (%) (Auto) 0 % (0-3) Neutrophils # (Auto) 6.3 x10^3uL (1.8-7.7) Lymphocytes # (Auto) 0.9 x10^3/uL (1.0-4.8) Monocytes # (Auto) 0.9 x10^3/uL (0.0-1.1) Eosinophils # (Auto) 0.2 x10^3/uL (0.0-0.7) Basophils # (Auto) 0.0 x10^3/uL (0.0-0.2) Glucose (Fingerstick) 205 mg/dL (70-99) 247 mg/dL (70-99) Laboratory Tests Test 01/01/17 17:15 01/01/17 20:47 01/02/17 03:36 01/02/17 03:56 Glucose (Fingerstick) 128 mg/dL (70-99) 192 mg/dL (70-99) Sodium Level 131 mmol/L (136-145) Potassium Level 4.1 mmol/L (3.5-5.1) Chloride Level 97 mmol/L (98-107) Carbon Dioxide Level 25 mmol/L (21-32) Anion Gap 9 (6-14) Blood Urea Nitrogen 24 mg/dL (8-26) Creatinine 0.7 mg/dL (0.7-1.3) Estimated GFR (Cockcroft-Gault) 109.1 Glucose Level 198 mg/dL (70-99) Calcium Level 8.6 mg/dL (8.5-10.1) White Blood Count 8.3 x10^3/uL (4.0-11.0) Red Blood Count 2.45 x10^6/uL (4.30-5.70) Hemoglobin 7.9 g/dL (13.0-17.5) Hematocrit 22.5 % (39.0-53.0) Mean Corpuscular Volume 92 fL (79-100) Mean Corpuscular Hemoglobin 32 pg (25-35) Mean Corpuscular Hemoglobin Concent 35 g/dL (31-37) Red Cell Distribution Width 13.5 % (11.5-14.5) Platelet Count 165 x10^3/uL (140-400) Neutrophils (%) (Auto) 76 % (31-73) Lymphocytes (%) (Auto) 11 % (24-48) Monocytes (%) (Auto) 11 % (0-9) Eosinophils (%) (Auto) 2 % (0-3) Basophils (%) (Auto) 0 % (0-3) Neutrophils # (Auto) 6.3 x10^3uL (1.8-7.7) Lymphocytes # (Auto) 0.9 x10^3/uL (1.0-4.8) Monocytes # (Auto) 0.9 x10^3/uL (0.0-1.1) Eosinophils # (Auto) 0.2 x10^3/uL (0.0-0.7) Basophils # (Auto) 0.0 x10^3/uL (0.0-0.2) Test 01/02/17 07:39 01/02/17 11:52 Glucose (Fingerstick) 205 mg/dL (70-99) 247 mg/dL (70-99) Brief Hospital Course Mr. Ellsworth is a 76 old [sex] who presented with NSTEMI, needed CABG, Dcd on POD # 4. NEw meds: ASA 325, Lipitor 20, Lopressor 50 BID. Pt seen and examined Dc time 31 mins Rx given ff up TCVS 2 weeks cards 4 weeks Discharge Information Condition at Discharge: Improved, Stable Follow Up: Weeks (2 weeks TCVS, 4 weeks Cards) Disposition/Orders: D/C to Home Scheduled Aspirin (Aspir 81), 1 TAB PO DAILY, (Reported) Dutasteride (Avodart), 1 CAP PO QHS, (Reported) Glipizide (Glipizide), 1 TAB PO BID, (Reported) Hydrochlorothiazide (Hydrochlorothiazide Tablet), 0.5 TAB PO DAILY, (Reported) Meloxicam (Meloxicam), 1 TAB PO DAILY, (Reported) Metformin Hcl (Metformin Hcl), 1,000 MG PO BID, (Reported) Multivitamin (Multivitamins), 1 TAB PO QHS, (Reported) Omeprazole (Omeprazole), 1 CAP PO DAILY, (Reported) Pravastatin Sodium (Pravastatin Sodium), 1 TAB PO DAILY, (Reported) [place] ([place]), 450 MG PO QHS, (Reported) Tamsulosin Hcl (Tamsulosin Hcl), 2 CAP PO QHS, (Reported) Valsartan/Hydrochlorothiazide (Diovan Hct 320-25 Mg Tablet), 1 TAB PO DAILY, ( Reported) Verapamil HCl (Verapamil Sr), 180 MG PO QHS, (Reported) LUCRECIA DIAS MD Jan 02, 2017 12:35
[2017-01-02] MEDS: oxyCODONE/APAP 5/325 1 TAB TABLET PO PRN (13:58)
== END 2017-01-02 14:05 | disposition home or self-care (01) | DRG 234 ==
LOC: ER 10:33 → 2 SOUTH 13:23 → 1 WEST ICU 12-29 12:44 → 2 SOUTH 12-31 13:20
PROVIDERS: ADMIT Internal Medicine; ATTEND Internal Medicine
PROC: 4A023N7 Measurement of Cardiac Sampling and Pressure, Left Heart, Percutaneous Approach (ICD-10-PCS; principal; 2016-12-27)
PROC: B2111ZZ Fluoroscopy of Multiple Coronary Arteries using Low Osmolar Contrast (ICD-10-PCS; 2016-12-27)
PROC: 02100Z9 Bypass Coronary Artery, One Artery from Left Internal Mammary, Open Approach (ICD-10-PCS; 2016-12-29)
PROC: 021109W Bypass Coronary Artery, Two Arteries from Aorta with Autologous Venous Tissue, Open Approach (ICD-10-PCS; 2016-12-29)
PROC: 06BQ4ZZ Excision of Left Saphenous Vein, Percutaneous Endoscopic Approach (ICD-10-PCS; 2016-12-29)
PROC: 5A1221Z Performance of Cardiac Output, Continuous (ICD-10-PCS; 2016-12-29)
PROC: 30233N1 Transfusion of Nonautologous Red Blood Cells into Peripheral Vein, Percutaneous Approach (ICD-10-PCS; 2016-12-29)
PROC: 0W9B30Z Drainage of Left Pleural Cavity with Drainage Device, Percutaneous Approach (ICD-10-PCS; 2016-12-29)
PROC: 02NN0ZZ Release Pericardium, Open Approach (ICD-10-PCS; 2016-12-29)
DX: I21.4 Non-ST elevation (NSTEMI) myocardial infarction (principal); I31.0 Chronic adhesive pericarditis; D69.6 Thrombocytopenia, unspecified; E11.9 Type 2 diabetes mellitus without complications; E78.5 Hyperlipidemia, unspecified; I10 Essential (primary) hypertension; I25.10 Atherosclerotic heart disease of native coronary artery without angina pectoris; K21.9 Gastro-esophageal reflux disease without esophagitis; M19.90 Unspecified osteoarthritis, unspecified site; R01.1 Cardiac murmur, unspecified; Z83.3 Family history of diabetes mellitus; Z82.49 Family history of ischemic heart disease and other diseases of the circulatory system
CPT/HCPCS: 36415; 36600; 71010; 71250; 73552; 80048; 80053; 80061; 81001; 82803; 82805; 82962; 83036; 83735; 84132; 84484; 85025; 85027; 85347; 85384; 85520; 85610; 85730; 86850; 86900; 86901; 86920; 87641; 93005; 93306; 93458; 93571; 93880; 93970; 94002; 94250; 94760; 96361; 96374; 99152; 99153; C1769; C1781; C1887; C1892; J0171; J0330; J0360; J0690; J1644; J1815; J1940; J2150; J2175; J2250; J2270; J2440; J3010; J3370; J3475; J3480; J3490; J7030; J7040; J7120; P9016; P9041; P9046; Q9967; S0028; 97530; 99285-25; C9248; J2001

== ENCOUNTER → 2017-01-20 | Outpatient (CLI) | payer MEDICARE ==
[2017-01-02 10:18] VITALS: BP 115/58
[~2017-01-20] MED LIST changes: +ASPI-482 PO; +ASPI325T11 PO; +ATOR20TA PO; +DUTA0.5C PO; +GLIP10TA13 PO; +HYDR50TA6 PO; +MELO15TA23 PO; +METF-620 PO; +METO50TA2 PO; +MULT1TAB52 PO; +OMEP20CA9 PO; +PRAV20TA2 PO; +SAW450CA2 PO; +TAMS0.4C2 PO; +VALS1TAB22 PO; +VERA180C4 PO
--- NOTE | 2017-01-20 14:50 | RAD ---
Indication postop. Protocol study. Frontal and lateral views of the chest were obtained and are compared to an examination 01/01/2017. Postoperative changes are noted. There is mild cardiomegaly. There is no gross congestive heart failure. Aeration of the lungs has improved slightly relative to the previous exam. There is some slight volume loss in the mid lung [place] bilaterally right slightly greater than left most compatible with atelectasis. Significant pleural fluid is not seen. There is no pneumothorax. IMPRESSION: Mild stable cardiomegaly. Minimal volume loss in the lungs likely reflecting atelectasis
== END | disposition home or self-care (01) ==
LOC: RAD 13:05
PROVIDERS: ATTEND Thoracic Surgery (Cardiothoracic Vascular Surgery)
DX: I51.7 Cardiomegaly (principal); Z95.1 Presence of aortocoronary bypass graft
CPT/HCPCS: 71020